=== PATIENT | female | born 1945 | race Caucasian/White ===

== ENCOUNTER 2022-07-13 13:47 | Inpatient (IN) | payer MEDICARE, MEDICAID, SELFPAY ==
[2022-07-13] VITALS (19 sets, daily range): BP systolic 97–126; BP diastolic 51–82; PULSE 65–86; RESP 13–29; TEMP 36.2–37.1; O2SAT 92–98
--- NOTE | 2022-07-13 14:15 | DI.CT_ITS ---
Exam(s) CT NECK WO EXAM: CT NECK WO CLINICAL HISTORY: right neck mass since yesterday, swelling. TECHNIQUE: Imaging Protocol: Axial computed tomography images with coronal and sagittal reformatted images were created and reviewed CONTRAST MATERIAL: IV contrast administration was attempted twice but both IVs infiltrated. This is centrally noncontrast examination. COMPARISON: No exams were available for comparison FINDINGS: There is enlargement of the right sub mandibular gland and a large amount of surrounding soft tissue swelling, consistent with sialadenitis and overlying cellulitis. There are enlarged adjacent right s ubmandibular and internal jugular chain lymph nodes. Parotid and thyroid glands unremarkable. Lungs: Images through both lung apices are unremarkable. Bones: Degenerative changes of the cervical spine. Visualized portions of the brain and orbits: Unremarkable. Sinuses and mastoids: Clear. IMPRESSION: Inflammation of the right submandibular great gland and surrounding marked cellulitis. No drainable abscess. RADIATION DOSE DELIVERED: 240.76 mGy.cm Total DLP DATA REPOSITORY: All CT scans at this facility are submitted to the National Radiology Data Registry (NRDR) Dose Index Registry (DIR) with the [employer] (ACR). RADIATION OPTIMIZATION: All CT scans at this facility use at least one of these dose optimization te chniques: automated exposure control; mA and/or kV adjustment per patient size (includes targeted exa ms where dose is matched to clinical indication); or iterative reconstruction.
[2022-07-13 14:50] LABS: Abs Immature Grans 0.05 10^3/uL (0.0-0.06); Absolute Basophil Count 0.03 10^3/uL (0.0-0.2); Absolute Eosinophil Count 0.01 10^3/uL (0.0-0.7); Absolute Lymphocyte Count 1.78 10^3/uL (1.2-3.4); Absolute Monocyte Count 0.62 10^3/uL (0.1-0.8); Absolute Neutrophil Count 10.66 10^3/uL (1.2-6.7); Basophils % 0.2; Eosinophils % 0.1; HGB 13.7 g/dL (11.2-15.7); Immature Grans % 0.4; Lymphocytes % 13.5; MCH 30.1 pg (27.0-33.0); MCHC 30.4 % (32.0-36.0); MCV 99 fL (80-95); MPV 10.6 fL (8.0-11.0); Monocytes % 4.7; Neutrophils % 81.1; Platelet Count 213 10^3/uL (130-400); RBC 4.55 10^6/uL (3.93-5.22); RDW 15.2 % (11.7-14.6); RDW-SD 55.7 fL; WBC 13.15 10^3/uL (4.4-10.8)
[2022-07-13 15:10] LABS: ALT 15 U/L (14-59); AST 17 U/L (15-37); Albumin 3.8 g/dL (3.4-5.0); Alkaline Phosphatase 93 U/L (46-116); Anion Gap 6.3 mmol/L (3-11); BUN 32 mg/dL (7-18); Bilirubin, Total 0.4 mg/dL (0.2-1.0); CO2 32.7 mmol/L (21.0-32.0); CREATININE 0.8 mg/dL (0.55-1.02); Chloride 112 mmol/L (98-107); Estimated GFR 77.27 (mL/min/1.73m2); Glucose 91 mg/dL (74-106); Potassium 4.3 mmol/L (3.5-5.1); Sodium 151 mmol/L (136-145)
--- NOTE | 2022-07-13 15:52 | ED.GENADUL_ITS ---
Discharge Plan Disposition Patient Disposition: Admit to [facility] Discharge Details Clinical Impression: Cellulitis of submandibular region, Hypernatremia Primary Care Provider: Vaughn Navarro ED Provider: Bola Choe Home Meds and New Rx's Prescriptions: No Action bupropion HCl 150 mg Tablet Sustained-Release 12 Hr 150 mg PO DAILY sennosides [Senokot] 8.6 mg Tablet See Rx Instructions .ROUTE .COMPLEX Rx Instructions: Take 2 tabs PO BID acetaminophen 325 mg Tablet 650 mg PO Q4H PRN Rx Instructions: for temp 100F or above trazodone 50 mg Tablet 50 mg PO QHS atorvastatin 10 mg Tablet 10 mg PO QHS clonazepam 0.5 mg Tablet 0.5 mg PO BID PRN clonazepam 1 mg Tablet 1 mg PO QHS Rx Instructions: administer 30 minutes before bedtime citalopram 20 mg Tablet 20 mg PO DAILY magnesium hydroxide [Milk of Magnesia] 400 mg/5 mL Suspension 30 ml PO DAILY PRN bisacodyl [Dulcolax (bisacodyl)] 10 mg Suppository 10 mg [place] DAILY PRN ferrous sulfate 325 mg (65 mg iron) Tablet 325 mg PO DAILY benztropine 1 mg Tablet 1 mg PO BID aspirin 81 mg Tablet,Chewable 81 mg PO DAILY polyethylene glycol 3350 [Miralax] 17 gram/dose Powder 17 g PO DAILY PRN divalproex [Depakote Sprinkles] 125 mg Capsule, Delayed Rel Sprinkle 125 mg PO BID cholecalciferol (vitamin D3) [Vitamin D3] 25 mcg (1,000 unit) Capsule 25 mcg PO DAILY omeprazole 20 mg Tablet,Delayed Release (Dr/Ec) 20 mg PO DAILY potassium chloride 20 mEq Tablet Extended Release 20 meq PO DAILY Medical Decision Making 1600??76-year-old female here with submandibular swelling on the right. Swelling is nodular and concern for mass versus abscess versus lymphadenopathy. Exam is not consistent with Osei angina. Airway intact. Labs reviewed and leukocytosis noted. Patient has hypernatremia and I suspect hypovolemic. Patient appears dehydrated. I will give IV fluid bolus. Plan to obtain CT of the neck. Unfortunately IV infiltrated during CT scan and patient has significant tremor severely limiting study. Plan to reestablish IV and provide Versed 2 mg IV to reduce tremor and allow for adequate imaging. -- Second IV infiltrated during CT imaging. CT was obtained without IV contrast. CT interpreted by radiology: IMPRESSION: Asymmetric enlargement of the right submandibular gland is concerning for sialadenitis and is associated with probable overlying cellulitis and regional adenopathy as detailed above.? A discrete abscess is not identified on this noncontrast examination. Correlation with clinical data is necessary. Given rapid progression of swelling today, plan to admit for IV antibiotics and observation. Have initiated treatment with vancomycin and cefepime. 2038 --Patient reassessed and airway remains intact. No further progression of swelling. I called and spoke with Dr. Henao, on-call hospitalist, discussed ED presentation and course, he will admit the patient. He request bridging orders to be placed by me to the floor. Orders were placed. Care transition at time of admission. Lab Data Lab results reviewed: Yes I reviewed the patient's lab results. Labs: Laboratory Tests Range/Units 07/13/22 07/13/22 14:30 14:30 WBC (4.4-10.8) 10^3/uL 13.15 H RBC (3.93-5.22) 10^6/uL 4.55 Hgb (11.2-15.7) g/dL 13.7 Hct (36.0-46.0) % 45.0 MCV (80-95) fL 99 H MCH (27.0-33.0) pg 30.1 MCHC (32.0-36.0) % 30.4 L RDW (11.7-14.6) % 15.2 H Plt Count (130-400) 10^3/uL 213 MPV (8.0-11.0) fL 10.6 Immature Gran % 0.4 Neutrophils % 81.1 Lymphocytes % 13.5 Monocytes % 4.7 Eosinophils % 0.1 Basophils % 0.2 Nucleated RBC % (0.0-0.3) % 0.0 Absolute Neutrophils (1.2-6.7) 10^3/uL 10.66 H Absolute Lymphocytes (1.2-3.4) 10^3/uL 1.78 Absolute Monocytes (0.1-0.8) 10^3/uL 0.62 Absolute Eosinophils (0.0-0.7) 10^3/uL 0.01 Absolute Basophils (0.0-0.2) 10^3/uL 0.03 Sodium (136-145) mmol/L 151 H Potassium (3.5-5.1) mmol/L 4.3 Chloride (98-107) mmol/L 112 H Carbon Dioxide (21.0-32.0) mmol/L 32.7 H Anion Gap (3-11) mmol/L 6.3 BUN (7-18) mg/dL 32 H Creatinine (0.55-1.02) mg/dL 0.8 Est GFR (CKD-EPI 2020) (mL/min/1.73m2) 77.27 Glucose (74-106) mg/dL 91 Calcium (8.5-10.1) mg/dL 10.0 Total Bilirubin (0.2-1.0) mg/dL 0.4 AST (15-37) U/L 17 ALT (14-59) U/L 15 Alkaline Phosphatase (46-116) U/L 93 Total Protein (6.4-8.2) g/dL 8.0 Albumin (3.4-5.0) g/dL 3.8 HPI General Mode of arrival: EMS . Date/Time Provider Initiated Documentation: 07/13/22 13:57 . Limitations to Documentation: other (poor historian) . Information obtained by: patient . HPI Narrative: 76-year-old female sent from assisted with concern for area of swelling under her chin that started yesterday and has progressed. Patient notes mild pain in the area of swelling. Patient denies difficulty breathing or swallowing. Swelling is moderate with no modifiers. History and review of systems limited secondary to poor historian. Related Data Home Medications Medication Instructions Recorded Confirmed acetaminophen 325 mg tablet 650 mg PO Q4H PRN 07/13/22 07/13/22 aspirin 81 mg chewable tablet 81 mg PO DAILY 07/13/22 07/13/22 atorvastatin 10 mg tablet 10 mg PO QHS 07/13/22 07/13/22 benztropine 1 mg tablet 1 mg PO BID 07/13/22 07/13/22 bisacodyl 10 mg rectal suppository 10 mg [place] DAILY PRN 07/13/22 07/13/22 (Dulcolax (bisacodyl)) bupropion HCl 150 mg tablet,12 hr 150 mg PO DAILY 07/13/22 07/13/22 sustained-release cholecalciferol (vitamin D3) 25 25 mcg PO DAILY 07/13/22 07/13/22 mcg (1,000 unit) capsule (Vitamin D3) citalopram 20 mg tablet 20 mg PO DAILY 07/13/22 07/13/22 clonazepam 0.5 mg tablet 0.5 mg PO BID PRN 07/13/22 07/13/22 clonazepam 1 mg tablet 1 mg PO QHS 07/13/22 07/13/22 divalproex 125 mg capsule,delayed 125 mg PO BID 07/13/22 07/13/22 release sprinkle (Depakote Sprinkles) ferrous sulfate 325 mg (65 mg 325 mg PO DAILY 07/13/22 07/13/22 iron) tablet magnesium hydroxide 400 mg/5 mL 30 ml PO DAILY PRN 07/13/22 07/13/22 oral suspension (Milk of Magnesia) omeprazole 20 mg tablet,delayed 20 mg PO DAILY 07/13/22 07/13/22 release polyethylene glycol 3350 17 17 g PO DAILY PRN 07/13/22 07/13/22 gram/dose oral powder (Miralax) potassium chloride 20 mEq 20 meq PO DAILY 07/13/22 07/13/22 tablet,extended release sennosides 8.6 mg tablet (Senokot) See Rx Instructions .Route .COMPLEX 07/13/22 07/13/22 trazodone 50 mg tablet 50 mg PO QHS 07/13/22 07/13/22 Allergies Allergy/AdvReac Type Severity Reaction Status Date / Time peas Allergy Unknown Unverified 07/13/22 14:17 ropinirole Allergy Unknown Unverified 07/13/22 14:17 General Stated Complaint: FacialProb THERESE: 3 Review of Systems Constitutional Constitutional: Denies fever(s) ENT Ears, Nose, Mouth, and Throat: Reports as per HPI PFSH All Active Problems (Updated 07/13/22 @ 20:39 by Bola Choe MD) Cellulitis of submandibular region (Acute) Hypernatremia (Acute) Social History Smoking/Tobacco Use Status: Former Tobacco Use Smoking risk assessment performed?: Yes Alcohol Intake: never Drug use: Never Substance use type: does not use Do you feel safe at home: Yes Do you feel safe in your relationship?: Yes Exam Const General: cooperative and no acute distress HENMT Face and sinus: normal facial exam and face symmetric Mouth: tongue normal, mucous membranes dry, no drooling and no trismus Teeth and gingiva: poor dentition Throat: posterior oropharynx normal Eyes Conjunctivae: normal conjunctivae Sclera: normal sclerae Neck Neck: trachea midline Lymphatic: lymphadenopathy (right) Other: Nodular swelling right submandibular area Resp Auscultation: clear to auscultation bilaterally, no rales, no rhonchi and no wheezes Cardio Rate: regular rate and not tachycardic Rhythm: regular rhythm Neuro General: patient alert, patient awake and tone normal Other: tremor Course Vital Signs Vital signs: Vital Signs Temperature 36.7 C 07/13/22 13:49 Pulse 74 07/13/22 13:49 Respiratory Rate 20 07/13/22 13:49 Blood Pressure 98/75 L 07/13/22 13:49 Pulse Oximetry 93 07/13/22 13:49 Temperature 36.7 C 07/13/22 13:49 Temperature Source Axillary 07/13/22 13:49 Pulse 74 07/13/22 13:49 Respiratory Rate 20 07/13/22 13:49 Respiratory Effort Normal 07/13/22 13:51 Blood Pressure 98/75 L 07/13/22 13:49 Blood Pressure Position Sitting 07/13/22 13:49 Pulse Oximetry 93 07/13/22 13:49 Oxygen Delivery Method Room Air 07/13/22 13:49 Oxygen Flow Rate 0 07/13/22 13:49 Pain Level 0 07/13/22 13:53 Lab/Test Results Lab/Test Results: Laboratory Tests Range/Units 07/13/22 07/13/22 14:30 14:30 WBC (4.4-10.8) 10^3/uL 13.15 H RBC (3.93-5.22) 10^6/uL 4.55 Hgb (11.2-15.7) g/dL 13.7 Hct (36.0-46.0) % 45.0 MCV (80-95) fL 99 H MCH (27.0-33.0) pg 30.1 MCHC (32.0-36.0) % 30.4 L RDW (11.7-14.6) % 15.2 H Plt Count (130-400) 10^3/uL 213 MPV (8.0-11.0) fL 10.6 Immature Gran % 0.4 Neutrophils % 81.1 Lymphocytes % 13.5 Monocytes % 4.7 Eosinophils % 0.1 Basophils % 0.2 Nucleated RBC % (0.0-0.3) % 0.0 Absolute Neutrophils (1.2-6.7) 10^3/uL 10.66 H Absolute Lymphocytes (1.2-3.4) 10^3/uL 1.78 Absolute Monocytes (0.1-0.8) 10^3/uL 0.62 Absolute Eosinophils (0.0-0.7) 10^3/uL 0.01 Absolute Basophils (0.0-0.2) 10^3/uL 0.03 Sodium (136-145) mmol/L 151 H Potassium (3.5-5.1) mmol/L 4.3 Chloride (98-107) mmol/L 112 H Carbon Dioxide (21.0-32.0) mmol/L 32.7 H Anion Gap (3-11) mmol/L 6.3 BUN (7-18) mg/dL 32 H Creatinine (0.55-1.02) mg/dL 0.8 Est GFR (CKD-EPI 2020) (mL/min/1.73m2) 77.27 Glucose (74-106) mg/dL 91 Calcium (8.5-10.1) mg/dL 10.0 Total Bilirubin (0.2-1.0) mg/dL 0.4 AST (15-37) U/L 17 ALT (14-59) U/L 15 Alkaline Phosphatase (46-116) U/L 93 Total Protein (6.4-8.2) g/dL 8.0 Albumin (3.4-5.0) g/dL 3.8
[2022-07-13] MEDS: Midazolam 2 MG/2 ML VIAL IVP (17:14)
[2022-07-13] MEDS: Normal Saline - Diluent 50 ML VIAL IJ (17:42)
[2022-07-13] MEDS: Omnipaque 350 MG/ML 100 ML BTL 80 ML IJ (17:43)
[2022-07-13] MEDS: Normal Saline Flush 10 ML SYR IVP ×2 (17:43→22:29)
--- NOTE | 2022-07-13 18:27 | DI.VRAD_ITS ---
PROCEDURE INFORMATION: Exam: CT Neck Without Contrast Exam date and time: 07/13/2022 5:21 PM Age: 76 years old Clinical indication: Mass, lump, or swelling in neck; Right and anterior; Additional info: Right neck mass since yesterday, swelling. Attempted to do scan with iv contrast but iv's infiltrated both attempt's TECHNIQUE: Imaging protocol: Computed tomography of the neck without contrast. COMPARISON: CT NECK WO 07/13/2022 3:40 PM FINDINGS: Oropharynx/oral cavity: Unremarkable. No significant tonsillar enlargement. Larynx: Epiglottis is normal. Prevertebral and retropharyngeal spaces: Unremarkable. Salivary glands: There is asymmetric enlargement of the right submandibular gland concerning for sialadenitis. Thyroid: Normal. No enlarged or calcified nodules. Lymph nodes: Prominent right submandibular and internal jugular chain lymph nodes are identified with smaller shotty left-sided submandibular and internal jugular chain nodes also evident. Trachea: Visualized trachea is unremarkable. Lungs: Unremarkable as visualized. Bones/joints: Unremarkable. No acute fracture. Soft tissues: Fluid/fatty stranding seen involving subcutaneous soft tissues overlying the right submandibular space and anterior cervical region. IMPRESSION: Asymmetric enlargement of the right submandibular gland is concerning for sialadenitis and is associated with probable overlying cellulitis and regional adenopathy as detailed above. A discrete abscess is not identified on this noncontrast examination. Correlation with clinical data is necessary. Dictated and Authenticated by: Jus Zhao MD. Ordering:ANNIE Plaza MD
[2022-07-13] MEDS: Lactated Ringers 500 ML IV (18:41)
--- NOTE | 2022-07-13 20:19 | NUR.NOTE ---
Per MD Дмитрий pt does not needs blood cultures prior to abx admin. Pt can drink fluids.
[2022-07-13] MEDS: CEFEPIME 2 GM in Normal Saline 100 ML IVPB (20:39)
[2022-07-13 21:24] LABS: Source Nasal/Nares
[2022-07-13 21:55] LABS: COVID-19 PCR Negative (Negative)
[2022-07-13] MEDS: VANCOMYCIN 1,000 MG in Normal Saline 250 ML 166.667 MG IVPB (22:27)
--- NOTE | 2022-07-13 22:36 | W.PM.HP.N ---
Date of service: 07/13/22 Time of Service: 22:36 Assessment and Plan Assessment and plan (1) Cellulitis of submandibular region: Status: Acute Assessment and plan: She is received cefepime and vancomycin from the emergency department. I am not sure she is has as severe cellulitis as it appears on the CT scan. I will continue the cefepime but let the day hospitalist decide about further vancomycin. I have requested an jaime rhino laryngology consultation. (2) Hypernatremia: Status: Acute Assessment and plan: I think the hyper natremia is probably due to some dehydration. Her mouth is quite dry. I will start IV fluids and check her labs in the morning. As noted in the history of present illness I have tried to call her daughter but was not able to reach her. I do think it would be worth having a conversation resuscitation status with the daughter as it appears the patient's dementia is quite severe. History of Present Illness History of Present Illness Chief Complaint: swelling right neck Narrative: This 76-year-old female is a resident at the [facility]. She formally lived in [facility]. When I asked her why she was here she says that she did not want to be alone. She was transferred from the [facility] earlier because of swelling of her right neck. The history is obtained from the emergency physician who cared for her in the department today. He states that the swelling of the right neck got much worse today. Apparently this problem started yesterday. The patient because of her dementia and cannot give me any history. I have a problem list from [facility] and her med list. There is relatively little other information available. I did try calling the daughter Isa Contreras at her number in [place] at [phone] and left a message for her to call here to the hospital's office tomorrow. The patient was evaluated in the emergency department it was felt that she had a cellulitis of her right side of her face. A CT exam does not show any abscess formation of the neck but there is concern about asymmetrical enlargement of the right submandibular gland and cellulitis. The patient has not been febrile. Laboratory studies show an elevated white blood cell count and an elevated sodium level. Chronic medical problems that are listed on her summary report from [facility] include: Dementia-severe, major depression-recurrent, bipolar disorder, chronic obstructive lung disease, gastroesophageal reflux, hypertension, repeated falls, hyperlipidemia, history of anemia, insomnia, intervertebral disc degeneration of lumbar region, allergic rhinitis, obstructive sleep apnea, dental caries, extra pyramidal movement disorder. Her current medicines are acetaminophen, aspirin, atorvastatin, benztropine, bupropion, citalopram, clonazepam, Depakote, Duca locks, iron sulfate, potassium supplement, milk of magnesia, MiraLAX, omeprazole, Senokot, trazodone and vitamin D. The medical record states she is a full code. Review of Systems Narrative: She says she feels fine. Review of systems is really not obtainable due to her mental condition which appears to be severe dementia. PFSH All Active Problems (Updated 07/13/22 @ 20:39 by Bola Choe MD) Cellulitis of submandibular region (Acute) Hypernatremia (Acute) Social History Smoking/Tobacco Use Status: Former Tobacco Use Smoking risk assessment performed?: Yes Alcohol Intake: never Drug use: Never Substance use type: does not use Do you feel safe at home: Yes Do you feel safe in your relationship?: Yes Meds Allergies and Home Medications Allergies Allergy/AdvReac Type Severity Reaction Status Date / Time peas Allergy Unknown Unverified 07/13/22 14:17 ropinirole Allergy Unknown Unverified 07/13/22 14:17 Home Medications Medication Instructions Recorded Confirmed Type acetaminophen 325 mg tablet 650 mg PO Q4H PRN 07/13/22 07/13/22 History aspirin 81 mg chewable tablet 81 mg PO DAILY 07/13/22 07/13/22 History atorvastatin 10 mg tablet 10 mg PO QHS 07/13/22 07/13/22 History benztropine 1 mg tablet 1 mg PO BID 07/13/22 07/13/22 History bisacodyl 10 mg rectal suppository 10 mg [place] DAILY PRN 07/13/22 07/13/22 History (Dulcolax (bisacodyl)) bupropion HCl 150 mg tablet,12 hr 150 mg PO DAILY 07/13/22 07/13/22 History sustained-release cholecalciferol (vitamin D3) 25 25 mcg PO DAILY 07/13/22 07/13/22 History mcg (1,000 unit) capsule (Vitamin D3) citalopram 20 mg tablet 20 mg PO DAILY 07/13/22 07/13/22 History clonazepam 0.5 mg tablet 0.5 mg PO BID PRN 07/13/22 07/13/22 History clonazepam 1 mg tablet 1 mg PO QHS 07/13/22 07/13/22 History divalproex 125 mg capsule,delayed 125 mg PO BID 07/13/22 07/13/22 History release sprinkle (Depakote Sprinkles) ferrous sulfate 325 mg (65 mg 325 mg PO DAILY 07/13/22 07/13/22 History iron) tablet magnesium hydroxide 400 mg/5 mL 30 ml PO DAILY PRN 07/13/22 07/13/22 History oral suspension (Milk of Magnesia) omeprazole 20 mg tablet,delayed 20 mg PO DAILY 07/13/22 07/13/22 History release polyethylene glycol 3350 17 17 g PO DAILY PRN 07/13/22 07/13/22 History gram/dose oral powder (Miralax) potassium chloride 20 mEq 20 meq PO DAILY 07/13/22 07/13/22 History tablet,extended release sennosides 8.6 mg tablet (Senokot) See Rx Instructions .Route .COMPLEX 07/13/22 07/13/22 History trazodone 50 mg tablet 50 mg PO QHS 07/13/22 07/13/22 History Exam Const General: no acute distress, disheveled, frail appearing and No well hydrated Orientation: not alert, awake, not oriented x3 and confused Other: She thought it was 2002. HENOH Other: Mouth is quite dry. She has only a few teeth still remaining in place. I do not see any intraoral lesion or masses. There is no erythema or abscesses in the mouth. Neck Neck: no JVD Other: She has a ovoid mass about 4 x 3 cm in the right submandibular area. It perhaps is a bit tender. It is difficult to tell how tender it really is. There is no appreciable cellulitis of the cheek although there does appear to be cellulitis on the CT scan that I can see. The submandibular mass is freely mobile. There is no overlying erythema. Resp Auscultation: clear to auscultation bilaterally, no rales, no rhonchi and no wheezes Cardio Rate: regular rate Rhythm: regular rhythm Heart Sounds: S1 normal, S2 normal, no gallops and no murmurs GI Palpation: soft, no hepatosplenomegaly, not firm and nontender Neuro Other: She does have a moderate amount of continuous movements of her arms and legs. 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 Her speech is difficult to understand. She has constant movements of her jaw also. Extrem General: normal to inspection, no calf tenderness bilaterally, no cyanosis and no edema Results Labs 07/13/22 14:30 07/13/22 14:30 Labs: Laboratory Results - last 24 hr 07/13/22 07/13/22 07/13/22 14:30 14:30 21:02 WBC 13.15 H RBC 4.55 Hgb 13.7 Hct 45.0 MCV 99 H MCH 30.1 MCHC 30.4 L RDW 15.2 H Plt Count 213 MPV 10.6 Immature Gran % 0.4 Neutrophils % 81.1 Lymphocytes % 13.5 Monocytes % 4.7 Eosinophils % 0.1 Basophils % 0.2 Nucleated RBC % 0.0 Absolute Neutrophils 10.66 H Absolute Lymphocytes 1.78 Absolute Monocytes 0.62 Absolute Eosinophils 0.01 Absolute Basophils 0.03 Sodium 151 H Potassium 4.3 Chloride 112 H Carbon Dioxide 32.7 H Anion Gap 6.3 BUN 32 H Creatinine 0.8 Est GFR (CKD-EPI 2020) 77.27 Glucose 91 Calcium 10.0 Total Bilirubin 0.4 AST 17 ALT 15 Alkaline Phosphatase 93 Total Protein 8.0 Albumin 3.8 COVID-19 Source Nasal/Nares SARS-CoV-2 (PCR) Negative Last Vital Signs Temp 36.5 C 07/13/22 21:35 Pulse 65 07/13/22 21:35 Resp 17 07/13/22 21:35 BP 104/62 07/13/22 21:35 Pulse Ox 96 07/13/22 21:35 Time Spent Time spent with Patient: 40-54 minutes Time was spent: preparing to see the patient(eg.review tests), ordering medications,tests, procedures, referring, communicating with other health post acute care nurse practitioner and indepentently interpreting results
[2022-07-13] MEDS: clonazePAM 1 MG TAB PO (23:26)
[2022-07-13] MEDS: Atorvastatin 10 MG TAB PO (23:26)
[2022-07-13] MEDS: traZODone 50 MG TAB PO (23:26)
[2022-07-14] VITALS (9 sets, daily range): BP systolic 100–129; BP diastolic 49–89; PULSE 55–155; RESP 12–25; TEMP 36.2–36.6; O2SAT 93–94
--- NOTE | 2022-07-14 | DI.CT_ITS ---
Exam(s) CT NECK W EXAM: CT NECK W CLINICAL HISTORY: Mass v abscess. TECHNIQUE: Imaging Protocol: Axial computed tomography images with coronal and sagittal reformatted images were created and reviewed CONTRAST MATERIAL: Intravenous: Omnipaque 350 Contrast volume:100 ml contrast COMPARISON: CT CT NECK WO from 07/13/2022 FINDINGS: Mild emphysematous changes noted at the lung apices. Atherosclerotic changes at aortic arch. Calcif ic plaque at the common carotid bulbs. No significant internal carotid artery stenosis. Vertebral a rteries normal in diameter. Sinuses and mastoid air cells are clear. Degenerative changes are noted in the spine. Orbits are un remarkable. Visualized portions of the brain are unremarkable. Parotid and thyroid glands appear normal. Again noted is enlargement of the left parotid gland with enhancement. Enlarged adjacent lymph nodes . Adjacent soft tissue edema consistent with cellulitis. IMPRESSION: No significant change in appearance of the right parotid gland and surrounding inflammation. The fin dings likely represent inflammation however mass is not excluded and follow-up after course of treatm ent is recommended. RADIATION DOSE DELIVERED: 256.04mGy.cm Total DLP DATA REPOSITORY: All CT scans at this facility are submitted to the National Radiology Data Registry (NRDR) Dose Index Registry (DIR) with the [employer] ([employer]). RADIATION OPTIMIZATION: All CT scans at this facility use at least one of these dose optimization te chniques: automated exposure control; mA and/or kV adjustment per patient size (includes targeted exa ms where dose is matched to clinical indication); or iterative reconstruction.
[2022-07-14] MEDS: CEFEPIME 1 GM in Normal Saline 50 ML IVPB ×3 (04:42→19:48)
[2022-07-14 07:19] LABS: Bilirubin Negative (Negative); Blood Negative (Negative); Clarity Clear (Clear); Glucose Negative (Negative); Ketones Negative (Negative); Leukocyte Esterase Negative (Negative); Nitrite Negative (Negative); Specific Gravity 1.015 (1.005-1.025); Urobilinogen 0.2 mg/dL (Up to 0.2); pH 6.5 (5-8)
[2022-07-14 07:26] LABS: Bacteria Rare HPF (Negative); C & S Indicated? No; Casts 0-2 Hyaline LPF (Negative); Crystals Negative HPF (Negative); Epithelial Cells Moderate HPF (Negative); Mucus Trace (Negative); RBC Negative HPF (0-2); WBC Negative HPF (0-5)
[2022-07-14] MEDS: Omeprazole 20 MG CAPCR PO (08:31)
[2022-07-14] MEDS: Senna TAB 2 TAB PO ×2 (08:31→19:47)
[2022-07-14] MEDS: Divalproex 125 MG SPRINKLE PO ×2 (08:31→19:48)
[2022-07-14] MEDS: Citalopram 20 MG TAB PO (08:31)
[2022-07-14] MEDS: Aspirin 81 MG CHEW PO (08:31)
[2022-07-14] MEDS: Lactated Ringers 1,000 ML 125 ML IV (08:32)
[2022-07-14] MEDS: Benztropine 1 MG TAB PO ×2 (08:32→19:48)
[2022-07-14] MEDS: buPROPion-CR 150 MG TABCR PO (08:32)
--- NOTE | 2022-07-14 08:45 | PDOC.CMIN ---
- If Service Date Differs Date of service: 07/14/22 Time of Service: 08:45 Care Management Initial Assess REASON FOR HOSPITALIZATION:: submandibular cellulitis PAST MEDICAL HISTORY/PAST SURGICAL HISTORY:: Cellulitis of submandibular region (Acute). Hypernatremia (Acute) PREVIOUS FUNCTIONAL STATUS/SOCIAL/FAMILY SUPPORTS:: Aletha lives at [facility]. She was transferred there from [facility] where she had been since December,. She has one child, a daughter named Isa, who lives in [place] and is her guardian. Aletha has severe dementia and requires care with ADLs and all activities. CURRENT FUNCTIONAL STATUS:: Aletha has severe dementia and is unable to provide any information. CM was able to speak to her daughter Isa who is her guardian. Isa informed that a year ago Aletha was in good health and completely independent. Both she and Isa got Covid infections in June of 2021 and Aletha was quite ill. She developed pneumonia and required bilateral chest tubes. Isa stated that after surgery, Aletha was confused and unable to speak. She had a dementia-like picture and steadily declined until she could no longer be managed at home and was placed at [facility]. Isa shared that Aletha has lost over 100 pounds in the past year and she has no idea why. Isa also shared that she was told that Aletha had a heart attack at home this spring or summer. CM asked about code status as Aletha is a full code. Isa felt that was consistent with her mother's wishes but would be agreeable to a Palliative consult to discuss it further. ADVANCE DIRECTIVES:: none on file Has patient been provided with info about the portal/API?: Yes Did the patient sign up for the portal?: No INSURANCE COVERAGE / FINANCIAL ISSUES:: Medicare. Medicaid CURRENT HOME/COMMUNITY SERVICES/EQUIPMENT:: lives at [facility] PRIMARY CARE PHYSICIAN:: Vaughn Navarro POTENTIAL DISCHARGE NEEDS:: return to [facility] PATIENT/FAMILY EDUCATION NEEDS:: Review of discharge instructions, follow up plan, activity and Ask Me Three TRANSPORTATION:: via EMS vs facility W/C van PLAN:: Anticipate aletha will return to [facility] when medically cleared by provider. She will follow up with facility provider and plan of care and transport via EMS vs w/c van. CM to follow and support discharge needs.
--- NOTE | 2022-07-14 10:57 | W.PM.PROGNOT ---
Date of Service Date of service: 07/14/22 Time of Service: 10:57 Assessment and Plan Assessment and plan (1) Cellulitis of submandibular region: Status: Acute Assessment and plan: ENT consulted - discussion with provider recommends changing abx to Clindamycin orally and cipro orally - this has been changed. (2) Hypernatremia: Status: Acute Assessment and plan: Her sodium has come down, she is still dry, but with her tardive dyskinesia, her mouth is mostly always open and dry, nursing will offer moistening (3) Dementia: Assessment and plan: Quite severe; safety precautions. (4) DVT prophylaxis: Status: Deleted Assessment and plan: Enoxaparin 40 mg sq daily (5) Discharge planning issues: Status: Deleted Assessment and plan: Awaiting some history from [facility] - Return to [facility] on oral abx Discussed with Dr Walters Subjective Subjective Patient reports: no new complaints, tolerating a regular diet and afebrile; denies diarrhea, vomiting or shortness of breath Interval history since last seen: Sitting in the chair, poor eye contact, not conversant Exam Const General: no acute distress, disheveled, frail appearing and No well hydrated Orientation: not alert, awake, not oriented x3 and confused Other: She thought it was 2002. [facility] Head: normal to inspection, no palpable skull fracture, normocephalic and atraumatic Face and sinus: normal facial exam and face symmetric Mouth: tongue normal, mucous membranes dry, moist mucous membranes abnormal, no drooling and no trismus Teeth and gingiva: poor dentition Throat: posterior oropharynx normal Other: Mouth is quite dry. She has only a few teeth still remaining in place. There is no erythema or abscesses visible in the mouth. Eyes Conjunctivae: normal conjunctivae Sclera: normal sclerae Neck Neck: no JVD Lymphatic: lymphadenopathy (right) Other: She has a ovoid mass about 4 x 3 cm in the right submandibular area. It perhaps is a bit tender. It is difficult to tell how tender it really is. There is no appreciable cellulitis of the cheek although there does appear to be cellulitis on the CT scan that I can see. The submandibular mass is freely mobile. There is no overlying erythema. Resp Auscultation: clear to auscultation bilaterally, no rales, no rhonchi and no wheezes Cardio Rate: regular rate Rhythm: regular rhythm Heart Sounds: S1 normal, S2 normal, no gallops and no murmurs GI Palpation: soft, no hepatosplenomegaly, not firm and nontender Neuro General: patient alert, patient awake and tone normal Other: She does have a moderate amount of continuous movements of her arms and legs. 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 Her speech is difficult to understand. She has constant movements of her jaw also. Extrem General: normal to inspection, no calf tenderness bilaterally, no cyanosis and no edema Objective Last Vital Signs Temp 36.3 C L 07/14/22 08:00 Pulse 155 H 07/14/22 08:01 Resp 25 H 07/14/22 08:01 BP 100/79 07/14/22 08:01 Pulse Ox 96 07/13/22 22:35 Laboratory Results - last 24 hr 07/13/22 07/13/22 07/13/22 14:30 14:30 21:02 WBC 13.15 H RBC 4.55 Hgb 13.7 Hct 45.0 MCV 99 H MCH 30.1 MCHC 30.4 L RDW 15.2 H Plt Count 213 MPV 10.6 Immature Gran % 0.4 Neutrophils % 81.1 Lymphocytes % 13.5 Monocytes % 4.7 Eosinophils % 0.1 Basophils % 0.2 Nucleated RBC % 0.0 Absolute Neutrophils 10.66 H Absolute Lymphocytes 1.78 Absolute Monocytes 0.62 Absolute Eosinophils 0.01 Absolute Basophils 0.03 Sodium 151 H Potassium 4.3 Chloride 112 H Carbon Dioxide 32.7 H Anion Gap 6.3 BUN 32 H Creatinine 0.8 Est GFR (CKD-EPI 2020) 77.27 Glucose 91 Calcium 10.0 Total Bilirubin 0.4 AST 17 ALT 15 Alkaline Phosphatase 93 Total Protein 8.0 Albumin 3.8 Urine Color Urine Clarity Urine pH Ur Specific [place] Urine Protein Urine Ketones Urine Blood Urine Nitrite Urine Bilirubin Urine Urobilinogen Ur Leukocyte Esterase Urine RBC Urine WBC Ur Epithelial Cells Urine Crystals Urine Bacteria Urine Casts Urine Mucus Ur Culture Indicated? Urine Glucose COVID-19 Source Nasal/Nares SARS-CoV-2 (PCR) Negative 07/14/22 06:43 WBC RBC Hgb Hct MCV MCH MCHC RDW Plt Count MPV Immature Gran % Neutrophils % Lymphocytes % Monocytes % Eosinophils % Basophils % Nucleated RBC % Absolute Neutrophils Absolute Lymphocytes Absolute Monocytes Absolute Eosinophils Absolute Basophils Sodium Potassium Chloride Carbon Dioxide Anion Gap BUN Creatinine Est GFR (CKD-EPI 2020) Glucose Calcium Total Bilirubin AST ALT Alkaline Phosphatase Total Protein Albumin Urine Color Yellow Urine Clarity Clear Urine pH 6.5 Ur Specific [place] 1.015 Urine Protein 30 H Urine Ketones Negative Urine Blood Negative Urine Nitrite Negative Urine Bilirubin Negative Urine Urobilinogen 0.2 Ur Leukocyte Esterase Negative Urine RBC Negative Urine WBC Negative Ur Epithelial Cells Moderate Urine Crystals Negative Urine Bacteria Rare Urine Casts 0-2 Hyaline Urine Mucus Trace Ur Culture Indicated? No Urine Glucose Negative COVID-19 Source SARS-CoV-2 (PCR) Time Spent with Patient Time Spent with Patient: 25-34 minutes Time was spent: preparing to see the patient(eg.review tests), obtaining and/or reviewing separately otained hiistory, ordering medications,tests, procedures, referring, communicating with other health home care specialist, indepentently interpreting results, counseling the patient and care coordination
[2022-07-14 11:50] LABS: Abs Immature Grans 0.05 10^3/uL (0.0-0.06); Absolute Eosinophil Count 0.01 10^3/uL (0.0-0.7); Basophils % 0.7; Eosinophils % 0.1; HCT 39.8 % (36.0-46.0); HGB 12.2 g/dL (11.2-15.7); Immature Grans % 0.4; Lymphocytes % 20.3; MCHC 30.7 % (32.0-36.0); MCV 98 fL (80-95); MPV 10.4 fL (8.0-11.0); Monocytes % 4.8; Neutrophils % 73.7; Platelet Count 192 10^3/uL (130-400); RBC 4.06 10^6/uL (3.93-5.22); RDW 15.3 % (11.7-14.6); RDW-SD 55.8 fL; WBC 13.86 10^3/uL (4.4-10.8)
[2022-07-14 11:51] LABS: Absolute Lymphocyte Count 2.81 10^3/uL (1.2-3.4); Absolute Monocyte Count 0.67 10^3/uL (0.1-0.8); Absolute Neutrophil Count 10.21 10^3/uL (1.2-6.7)
[2022-07-14 11:59] LABS: Anion Gap 3.9 mmol/L (3-11); BUN 32 mg/dL (7-18); CO2 32.1 mmol/L (21.0-32.0); CREATININE 0.7 mg/dL (0.55-1.02); Calcium 9.3 mg/dL (8.5-10.1); Chloride 115 mmol/L (98-107); Glucose 80 mg/dL (74-106); Potassium 3.9 mmol/L (3.5-5.1); Sodium 151 mmol/L (136-145)
[2022-07-14] MEDS: Normal Saline - Diluent 50 ML VIAL IJ (13:24)
[2022-07-14] MEDS: Omnipaque 350 MG/ML 500 ML BTL-Imaging package IJ (13:24)
[2022-07-14] MEDS: Normal Saline Flush 10 ML SYR IVP ×2 (13:26→13:59)
[2022-07-14] MEDS: Midazolam 2 MG/2 ML VIAL IVP (13:27)
[2022-07-14] MEDS: traZODone 50 MG TAB PO (21:50)
[2022-07-14] MEDS: Atorvastatin 10 MG TAB PO (21:50)
[2022-07-14] MEDS: clonazePAM 1 MG TAB PO (21:50)
[2022-07-15 03:10] VITALS: BP 109/63; PULSE 53; RESP 19; TEMP 35.6; O2SAT 98
[2022-07-15] MEDS: Normal Saline Flush 10 ML SYR IVP ×3 (04:26→21:50)
[2022-07-15] MEDS: CEFEPIME 1 GM in Normal Saline 50 ML IVPB (04:27)
[2022-07-15 06:16] VITALS: BP 124/74; PULSE 74; RESP 20; TEMP 36.5; O2SAT 95
[2022-07-15 07:46] LABS: Abs Immature Grans 0.01 10^3/uL (0.0-0.06); Absolute Basophil Count 0.03 10^3/uL (0.0-0.2); Absolute Eosinophil Count 0.13 10^3/uL (0.0-0.7); Absolute Lymphocyte Count 2.41 10^3/uL (1.2-3.4); Absolute Monocyte Count 0.43 10^3/uL (0.1-0.8); Absolute Neutrophil Count 4.05 10^3/uL (1.2-6.7); Basophils % 0.4; Eosinophils % 1.8; HCT 36.3 % (36.0-46.0); HGB 11.1 g/dL (11.2-15.7); Immature Grans % 0.1; Lymphocytes % 34.1; MCH 30.1 pg (27.0-33.0); MCHC 30.6 % (32.0-36.0); MCV 98 fL (80-95); MPV 10.3 fL (8.0-11.0); Monocytes % 6.1; Neutrophils % 57.5; Platelet Count 177 10^3/uL (130-400); RBC 3.69 10^6/uL (3.93-5.22); RDW 15.2 % (11.7-14.6); RDW-SD 55.6 fL; WBC 7.06 10^3/uL (4.4-10.8)
[2022-07-15 07:58] LABS: Anion Gap -0.5 mmol/L (3-11); BUN 28 mg/dL (7-18); CO2 31.5 mmol/L (21.0-32.0); CREATININE 0.6 mg/dL (0.55-1.02); Calcium 8.9 mg/dL (8.5-10.1); Chloride 115 mmol/L (98-107); Estimated GFR 94.13 (mL/min/1.73m2); Glucose 79 mg/dL (74-106); Magnesium 1.9 mg/dL (1.8-2.4); Potassium 3.2 mmol/L (3.5-5.1); Sodium 146 mmol/L (136-145)
[2022-07-15] MEDS: POTASSIUM CHLORIDE 20 MEQ/100 ML BAG 50 MEQ IVPB ×2 (11:18→13:27)
[2022-07-15] MEDS: Divalproex 125 MG SPRINKLE PO ×2 (11:22→20:04)
[2022-07-15] MEDS: Aspirin 81 MG CHEW PO (11:22)
[2022-07-15] MEDS: Citalopram 20 MG TAB PO (11:23)
[2022-07-15] MEDS: Ciprofloxacin 500 MG TAB 750 MG PO (11:23)
[2022-07-15] MEDS: buPROPion-CR 150 MG TABCR PO (11:23)
[2022-07-15] MEDS: Senna TAB 2 TAB PO ×2 (11:23→19:56)
[2022-07-15] MEDS: Benztropine 1 MG TAB PO ×2 (11:23→20:04)
[2022-07-15] MEDS: Omeprazole 20 MG CAPCR PO (11:23)
[2022-07-15 11:42] VITALS: BP 123/69; PULSE 69; RESP 18; TEMP 36.7; O2SAT 94
[2022-07-15] MEDS: Clindamycin 150 MG CAP 450 MG PO ×2 (13:27→19:57)
[2022-07-15 15:18] VITALS: BP 105/62; PULSE 67; RESP 17; TEMP 36.4; O2SAT 95
--- NOTE | 2022-07-15 18:02 | PGE_ITS ---
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 Assessment and plan: amantadine 100 mg BID; clonazepam; benztropine (3) Hypernatremia: Status: Acute Assessment and plan: Her sodium has come down, she is still dry, but with her tardive dyskinesia, her mouth is mostly always open and dry, nursing will offer moistening Will monitor (4) DVT prophylaxis: Status: Acute Assessment and plan: Enoxaparin 40 mg sq daily (5) Discharge planning issues: Status: Acute Assessment and plan: Awaiting some history from [facility] - Return to [facility] on oral abx Discussed with Dr Xavier Subjective Subjective Patient reports: no new complaints and afebrile; denies diarrhea, vomiting or shortness of breath Interval history since last seen: Unchanged, no fevers, appears comfortable, not complaining of pain, difficulty to assess with her dementia, but not grimacing, again difficult to tell with tardive dyskenesia. Exam Const General: no acute distress, disheveled, frail appearing and No well hydrated Orientation: not alert, awake, not oriented x3 and confused Other: She thought it was 2002. [facility] Head: normal to inspection, no palpable skull fracture, normocephalic and atraumatic Face and sinus: normal facial exam and face symmetric Mouth: tongue normal, mucous membranes dry, moist mucous membranes abnormal, no drooling and no trismus Teeth and gingiva: poor dentition Throat: posterior oropharynx normal Other: Mouth is quite dry. She has only a few teeth still remaining in place. There is no erythema or abscesses visible in the mouth. Eyes Conjunctivae: normal conjunctivae Sclera: normal sclerae Neck Neck: no JVD Lymphatic: lymphadenopathy (right) Other: She has a ovoid mass about 4 x 3 cm in the right submandibular area. It perhaps is a bit tender. It is difficult to tell how tender it really is. There is no appreciable cellulitis of the cheek although there does appear to be cellulitis on the CT scan that I can see. The submandibular mass is freely mobile. There is no overlying erythema. Resp Auscultation: clear to auscultation bilaterally, no rales, no rhonchi and no wheezes Cardio Rate: regular rate Rhythm: regular rhythm Heart Sounds: S1 normal, S2 normal, no gallops and no murmurs GI Palpation: soft, no hepatosplenomegaly, not firm and nontender Neuro General: patient alert, patient awake and tone normal Other: She does have a moderate amount of continuous movements of her arms and legs. 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 Her speech is difficult to understand. She has constant movements of her jaw also. Extrem General: normal to inspection, no calf tenderness bilaterally, no cyanosis and no edema Objective Last Vital Signs Temp 36.4 C L 07/15/22 15:18 Pulse 67 07/15/22 15:18 Resp 17 07/15/22 15:18 BP 105/62 07/15/22 15:18 Pulse Ox 95 07/15/22 15:18 Laboratory Results - last 24 hr 07/15/22 07/15/22 07:30 07:30 WBC 7.06 RBC 3.69 L Hgb 11.1 L Hct 36.3 MCV 98 H MCH 30.1 MCHC 30.6 L RDW 15.2 H Plt Count 177 MPV 10.3 Immature Gran % 0.1 Neutrophils % 57.5 Lymphocytes % 34.1 Monocytes % 6.1 Eosinophils % 1.8 Basophils % 0.4 Nucleated RBC % 0.0 Absolute Neutrophils 4.05 Absolute Lymphocytes 2.41 Absolute Monocytes 0.43 Absolute Eosinophils 0.13 Absolute Basophils 0.03 Sodium 146 H Potassium 3.2 L Chloride 115 H Carbon Dioxide 31.5 Anion Gap -0.5 L BUN 28 H Creatinine 0.6 Est GFR (CKD-EPI 2020) 94.13 Glucose 79 Calcium 8.9 Magnesium 1.9 C-Reactive Protein 2.00 H Time Spent with Patient Time Spent with Patient: 35-49 minutes Time was spent: preparing to see the patient(eg.review tests), obtaining and/or reviewing separately otained hiistory, ordering medications,tests, procedures, referring, communicating with other health child care education coordinator, indepentently interpreting results, counseling the patient and care coordination
[2022-07-15] MEDS: Enoxaparin 40 MG/0.4 ML SYR SC (18:05)
[2022-07-15 19:32] VITALS: BP 110/54; PULSE 66; RESP 17; TEMP 36.9; O2SAT 97
[2022-07-15] MEDS: Ciprofloxacin 250 MG TAB 750 MG PO (20:05)
[2022-07-15] MEDS: traZODone 50 MG TAB PO (21:49)
[2022-07-15] MEDS: clonazePAM 1 MG TAB PO (21:49)
[2022-07-15] MEDS: Atorvastatin 10 MG TAB PO (21:49)
[2022-07-15] MEDS: Acetaminophen 325 MG TAB 650 MG PO (22:08)
[2022-07-15 23:20] VITALS: BP 95/59; PULSE 67; RESP 19; TEMP 36.6; O2SAT 93
[2022-07-16 07:06] LABS: Abs Immature Grans 0.03 10^3/uL (0.0-0.06); Absolute Basophil Count 0.04 10^3/uL (0.0-0.2); Absolute Eosinophil Count 0.11 10^3/uL (0.0-0.7); Absolute Lymphocyte Count 2.34 10^3/uL (1.2-3.4); Absolute Monocyte Count 0.54 10^3/uL (0.1-0.8); Absolute Neutrophil Count 7.06 10^3/uL (1.2-6.7); Basophils % 0.4; Eosinophils % 1.1; HGB 10.7 g/dL (11.2-15.7); Immature Grans % 0.3; Lymphocytes % 23.1; MCH 30.9 pg (27.0-33.0); MCHC 31.5 % (32.0-36.0); MCV 98 fL (80-95); MPV 10.9 fL (8.0-11.0); Monocytes % 5.3; Neutrophils % 69.8; Platelet Count 154 10^3/uL (130-400); RBC 3.46 10^6/uL (3.93-5.22); RDW-SD 54.4 fL; WBC 10.12 10^3/uL (4.4-10.8)
[2022-07-16 07:09] VITALS: BP 102/63; PULSE 92; RESP 19; TEMP 35.2; O2SAT 91
[2022-07-16 07:20] LABS: Lab Add On Test DONE
[2022-07-16 07:21] LABS: Anion Gap 6.3 mmol/L (3-11); BUN 25 mg/dL (7-18); CO2 27.7 mmol/L (21.0-32.0); CREATININE 0.6 mg/dL (0.55-1.02); Calcium 8.7 mg/dL (8.5-10.1); Chloride 114 mmol/L (98-107); Estimated GFR 94.13 (mL/min/1.73m2); Glucose 64 mg/dL (74-106); Magnesium 1.8 mg/dL (1.8-2.4); Potassium 3.9 mmol/L (3.5-5.1); Sodium 148 mmol/L (136-145)
[2022-07-16 07:34] LABS: C-Reactive Protein 1.34 mg/dL (0.0-0.3)
[2022-07-16] MEDS: Citalopram 20 MG TAB PO (07:41)
[2022-07-16] MEDS: Ciprofloxacin 250 MG TAB 750 MG PO (07:41)
[2022-07-16] MEDS: Senna TAB 2 TAB PO ×2 (07:42→21:05)
[2022-07-16] MEDS: Clindamycin 150 MG CAP 450 MG PO ×2 (07:42→15:17)
[2022-07-16] MEDS: Divalproex 125 MG SPRINKLE PO ×2 (07:42→21:05)
[2022-07-16] MEDS: Aspirin 81 MG CHEW PO (07:42)
[2022-07-16] MEDS: buPROPion-CR 150 MG TABCR PO (07:43)
[2022-07-16] MEDS: Omeprazole 20 MG CAPCR PO (07:43)
[2022-07-16] MEDS: Enoxaparin 40 MG/0.4 ML SYR SC (07:43)
[2022-07-16] MEDS: Benztropine 1 MG TAB PO ×2 (07:43→21:05)
[2022-07-16 07:54] LABS: Procalcitonin < 0.1 ng/mL
[2022-07-16] MEDS: DEXTROSE 5%-0.45% SALINE 1,000 ML 75 ML IV (09:00)
[2022-07-16 13:44] LABS: Anion Gap 9.7 mmol/L (3-11); BUN 25 mg/dL (7-18); CO2 25.3 mmol/L (21.0-32.0); CREATININE 0.8 mg/dL (0.55-1.02); Calcium 8.9 mg/dL (8.5-10.1); Chloride 114 mmol/L (98-107); Estimated GFR 77.27 (mL/min/1.73m2); Glucose 109 mg/dL (74-106); Potassium 4.1 mmol/L (3.5-5.1); Sodium 149 mmol/L (136-145)
[2022-07-16] MEDS: DEXTROSE 5%-WATER 1,000 ML 75 ML IV (14:03)
[2022-07-16 15:14] LABS: Source Nasal/Nares
[2022-07-16 15:25] VITALS: BP 104/64; PULSE 75; RESP 19; TEMP 36.3; O2SAT 96
[2022-07-16 15:56] LABS: COVID-19 PCR Negative (Negative)
[2022-07-16] MEDS: PIPERACILLIN/TAZO 4.5 GM in Normal Saline 100 ML IVPB ×2 (17:52→23:31)
[2022-07-16] MEDS: Hydrocortisone SOD SUC. 100 MG VIAL IVP (18:15)
[2022-07-16] MEDS: Dextrose 50%-Water 25 GM/50 ML SYR IVP (19:00)
--- NOTE | 2022-07-16 19:00 | PGE_ITS ---
Date of Service Date of service: 07/16/22 Time of Service: 13:00 Assessment and Plan Assessment and plan (1) Cellulitis of submandibular region: Status: Acute Assessment and plan: She started having low glucose today; perhaps getting septic, changed oral meds back to IV meds (2) Hypoglycemia: Status: Acute Assessment and plan: Glucose dipped, possible beginning of sepsis, or secondary to Amantadine - stopped Amantadine Frequent glucose checks IVF changed to D5W 12.5 gm glucose IV was given one time for gluocse < 60 - she was asymptomatic with these low glucose readings; will montor. Hydrocortisone IV also given (3) Extrapyramidal and movement disorder: Status: Chronic Assessment and plan: amantadine discontinued as it can cause hypoglycemia and she had no improvement - continue clonazepam; benztropine Check glucose frequently - she did require 12.5 gm of glucose and IVF changed to D5W (4) Hypernatremia: Status: Acute Assessment and plan: Her sodium increased to 149 - D5-1/2NS was stopped and D5W IV fluid was started; her mouth is mostly always open and dry, nursing will offer moistening Will monitor electrolytes (5) DVT prophylaxis: Status: Acute Assessment and plan: Enoxaparin 40 mg sq daily (6) Discharge planning issues: Status: Acute Assessment and plan: Return to [facility] & on oral abx when stable and electrolytes normalize Discussed with Dr Xavier Subjective Subjective Patient reports: no new complaints, feels better, tolerating a regular diet, bowel movement and afebrile; denies diarrhea, blood in stool, vomiting or shortness of breath Interval history since last seen: Aleida reports feelings well, needs assistance with meals, she has a hard time getting foot into her mouth. Exam Const General: no acute distress, disheveled, frail appearing and No well hydrated Orientation: not alert, awake, not oriented x3 and confused Other: She thought it was 2002. [facility] Head: normal to inspection, no palpable skull fracture, normocephalic and atraumatic Face and sinus: normal facial exam and face symmetric Mouth: tongue normal, mucous membranes dry, moist mucous membranes abnormal, no drooling and no trismus Teeth and gingiva: poor dentition Throat: posterior oropharynx normal Other: Mouth is quite dry. She has only a few teeth still remaining in place. There is no erythema or abscesses visible in the mouth, continues to be dry Eyes Conjunctivae: normal conjunctivae Sclera: normal sclerae Neck Neck: no JVD Lymphatic: lymphadenopathy (right) Other: She has a ovoid mass about 4 x 3 cm in the right submandibular area. There is no notable or obvious cellulitis, no erythema, of the cheek although there does appear to be cellulitis on the CT scan. The submandibular mass is freely mobile. Resp Auscultation: clear to auscultation bilaterally, no rales, no rhonchi and no wheezes Cardio Rate: regular rate Rhythm: regular rhythm Heart Sounds: S1 normal, S2 normal, no gallops and no murmurs GI Palpation: soft, no hepatosplenomegaly, not firm and nontender Neuro General: patient alert, patient awake and tone normal Other: She does have a moderate amount of continuous movements of her arms and legs. 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 Her speech is difficult to understand. She has constant movements of her jaw also. Extrem General: normal to inspection, no calf tenderness bilaterally, no cyanosis and no edema Objective Last Vital Signs Temp 36.3 C L 07/16/22 15:25 Pulse 75 07/16/22 15:25 Resp 19 07/16/22 15:25 BP 104/64 07/16/22 15:25 Pulse Ox 96 07/16/22 15:25 Laboratory Results - last 24 hr 07/16/22 07/16/22 07/16/22 06:30 06:30 06:30 WBC 10.12 RBC 3.46 L Hgb 10.7 L Hct 34.0 L MCV 98 H MCH 30.9 MCHC 31.5 L RDW 15.0 H Plt Count 154 MPV 10.9 Immature Gran % 0.3 Neutrophils % 69.8 Lymphocytes % 23.1 Monocytes % 5.3 Eosinophils % 1.1 Basophils % 0.4 Nucleated RBC % 0.0 Absolute Neutrophils 7.06 H Absolute Lymphocytes 2.34 Absolute Monocytes 0.54 Absolute Eosinophils 0.11 Absolute Basophils 0.04 Sodium 148 H Potassium 3.9 Chloride 114 H Carbon Dioxide 27.7 Anion Gap 6.3 BUN 25 H Creatinine 0.6 Est GFR (CKD-EPI 2020) 94.13 Glucose 64 L Calcium 8.7 Magnesium 1.8 C-Reactive Protein Procalcitonin COVID-19 Source SARS-CoV-2 (PCR) Add-On Test Request DONE 07/16/22 07/16/22 07/16/22 06:30 06:30 12:32 WBC RBC Hgb Hct MCV MCH MCHC RDW Plt Count MPV Immature Gran % Neutrophils % Lymphocytes % Monocytes % Eosinophils % Basophils % Nucleated RBC % Absolute Neutrophils Absolute Lymphocytes Absolute Monocytes Absolute Eosinophils Absolute Basophils Sodium 149 H Potassium 4.1 Chloride 114 H Carbon Dioxide 25.3 Anion Gap 9.7 BUN 25 H Creatinine 0.8 Est GFR (CKD-EPI 2020) 77.27 Glucose 109 H Calcium 8.9 Magnesium C-Reactive Protein 1.34 H Procalcitonin < 0.1 COVID-19 Source SARS-CoV-2 (PCR) Add-On Test Request 07/16/22 15:00 WBC RBC Hgb Hct MCV MCH MCHC RDW Plt Count MPV Immature Gran % Neutrophils % Lymphocytes % Monocytes % Eosinophils % Basophils % Nucleated RBC % Absolute Neutrophils Absolute Lymphocytes Absolute Monocytes Absolute Eosinophils Absolute Basophils Sodium Potassium Chloride Carbon Dioxide Anion Gap BUN Creatinine Est GFR (CKD-EPI 2020) Glucose Calcium Magnesium C-Reactive Protein Procalcitonin COVID-19 Source Nasal/Nares SARS-CoV-2 (PCR) Negative Add-On Test Request Reviewed Pertinent PMH: Yes Time Spent with Patient Time Spent with Patient: >50 minutes Time was spent: preparing to see the patient(eg.review tests), obtaining and/or reviewing separately otained hiistory, ordering medications,tests, procedures, referring, communicating with other health aged or disabled carer, indepentently interpreting results, counseling the patient and care coordination
[2022-07-16 19:28] VITALS: BP 100/68; PULSE 75; RESP 18; TEMP 36.3; O2SAT 93
[2022-07-16] MEDS: traZODone 50 MG TAB PO (21:05)
[2022-07-16] MEDS: Atorvastatin 10 MG TAB PO (21:05)
[2022-07-16] MEDS: clonazePAM 1 MG TAB PO (21:05)
[2022-07-16] MEDS: VANCOMYCIN 1,000 MG in Normal Saline 250 ML 166 MG IVPB (21:05)
[2022-07-16 23:11] VITALS: BP 96/56; PULSE 60; RESP 18; TEMP 36.6; O2SAT 94
[2022-07-17] VITALS (7 sets, daily range): BP systolic 93–125; BP diastolic 46–69; PULSE 57–68; RESP 18; TEMP 35.9–36.9; O2SAT 92–98
--- NOTE | 2022-07-17 | DI.RAD_ITS ---
Exam(s) XR CHEST 2V PA LATERAL EXAM: XR CHEST 2V PA LATERAL CLINICAL HISTORY: Persistant cough TECHNIQUE: 2D digital imaging was performed of the chest. Two images were obtained. PA and lateral views were obtained. COMPARISON: No exams were available for comparison FINDINGS: MEDIASTINUM: Normal. HEART: Normal. PULMONARY VASCULATURE: Normal. LUNGS: No focal consolidating infiltrates. There is scarring in the right mid lung. PLEURAL SPACE: No pleural effusion or pneumothorax. BONE:Within normal limits for the patient's age. OTHER FINDINGS:Normal. IMPRESSION: No acute pulmonary findings. DATA REPOSITORY: RADIATION DOSE DELIVERED:
[2022-07-17] MEDS: PIPERACILLIN/TAZO 4.5 GM in Normal Saline 100 ML IVPB ×3 (04:42→19:14)
[2022-07-17 07:18] LABS: Abs Immature Grans 0.03 10^3/uL (0.0-0.06); Absolute Basophil Count 0.03 10^3/uL (0.0-0.2); Absolute Eosinophil Count 0.01 10^3/uL (0.0-0.7); Absolute Lymphocyte Count 1.89 10^3/uL (1.2-3.4); Absolute Monocyte Count 0.16 10^3/uL (0.1-0.8); Basophils % 0.3; Eosinophils % 0.1; HCT 36.6 % (36.0-46.0); HGB 11.6 g/dL (11.2-15.7); Immature Grans % 0.3; Lymphocytes % 21.2; MCH 30.7 pg (27.0-33.0); MCHC 31.7 % (32.0-36.0); MCV 97 fL (80-95); Monocytes % 1.8; Neutrophils % 76.3; Platelet Count 152 10^3/uL (130-400); RBC 3.78 10^6/uL (3.93-5.22); RDW 14.6 % (11.7-14.6); RDW-SD 52.6 fL; WBC 8.92 10^3/uL (4.4-10.8)
[2022-07-17 07:41] LABS: Anion Gap 6.7 mmol/L (3-11); BUN 16 mg/dL (7-18); C-Reactive Protein 2.02 mg/dL (0.0-0.3); CO2 28.3 mmol/L (21.0-32.0); CREATININE 0.7 mg/dL (0.55-1.02); Calcium 8.5 mg/dL (8.5-10.1); Chloride 108 mmol/L (98-107); Glucose 165 mg/dL (74-106); Magnesium 1.6 mg/dL (1.8-2.4); Potassium 3.4 mmol/L (3.5-5.1); Sodium 143 mmol/L (136-145)
[2022-07-17] MEDS: Omeprazole 20 MG CAPCR PO (08:19)
[2022-07-17] MEDS: Divalproex 125 MG SPRINKLE PO ×2 (08:19→19:13)
[2022-07-17] MEDS: Benztropine 1 MG TAB PO ×2 (08:19→19:13)
[2022-07-17] MEDS: Aspirin 81 MG CHEW PO (08:19)
[2022-07-17] MEDS: buPROPion-CR 150 MG TABCR PO (08:19)
[2022-07-17] MEDS: Senna TAB 2 TAB PO ×2 (08:20→19:13)
[2022-07-17] MEDS: Citalopram 20 MG TAB PO (08:20)
[2022-07-17] MEDS: Enoxaparin 40 MG/0.4 ML SYR SC (08:20)
--- NOTE | 2022-07-17 09:12 | W.PM.PROGNOT ---
Date of Service Date of service: 07/17/22 Time of Service: 09:12 Assessment and Plan Assessment and plan (1) Cellulitis of submandibular region: Status: Acute Assessment and plan: Continue IV meds I do not feel the mass today - she is denying pain in her neck in the area where the mass was (2) Hypoglycemia: Status: Acute Assessment and plan: Glucose normalized today glucose 165 mg, 146 before lunch, and now 110. Frequent glucose checks IVF changed to D5W (3) Extrapyramidal and movement disorder: Status: Chronic Assessment and plan: Continue clonazepam; benztropine Check glucose frequently - IVF discontinued (4) Hypokalemia: Status: Acute Assessment and plan: today potassium is 3.4 - repleted orally Monitor (5) Hypomagnesemia: Status: Acute Assessment and plan: today magnesium is 1.6 - repleted orally Monitor (6) Hypernatremia: Status: Acute Assessment and plan: Her sodium is down to 143 from 149 today Will monitor electrolytes (7) DVT prophylaxis: Status: Acute Assessment and plan: Enoxaparin 40 mg sq daily (8) Discharge planning issues: Status: Acute Assessment and plan: Return to [facility] & on oral abx when stable and electrolytes normalize, hopefully 07/18/[address] Xavier Subjective Subjective Patient reports: no new complaints, tolerating a regular diet and afebrile; denies flatus, diarrhea, blood in stool, vomiting or shortness of breath Interval history since last seen: Aleida states she is feeling much better today. She looks good, cheeks are pink. She said she has been drinking more fluids, continued help with meals, she is now asking for help with meals. She was seen by Speech therapy - see their note, diet adjusted per their recommendations Exam Const General: no acute distress, disheveled, frail appearing and No well hydrated Orientation: not alert, awake, not oriented x3 and confused [facility] Head: normal to inspection, no palpable skull fracture, normocephalic and atraumatic Face and sinus: normal facial exam and face symmetric Mouth: tongue normal, mucous membranes dry, moist mucous membranes abnormal, no drooling and no trismus Teeth and gingiva: poor dentition Throat: posterior oropharynx normal Other: Mouth is quite dry. She has only a few teeth still remaining in place. There is no erythema or abscesses visible in the mouth, continues to be dry Eyes Conjunctivae: normal conjunctivae Sclera: normal sclerae Neck Neck: no JVD Lymphatic: lymphadenopathy (right) Other: There is no notable or obvious cellulitis, no erythema, of the cheek although there does appear to be cellulitis on the CT scan. I can not feel the submandibular mass at all today Chest Chest: normal inspection of the chest Resp Effort & Inspection: normal respiratory effort Auscultation: clear to auscultation bilaterally, no rales, no rhonchi and no wheezes Cardio Rate: regular rate Rhythm: regular rhythm Heart Sounds: S1 normal, S2 normal, no gallops and no murmurs GI Palpation: soft, no hepatosplenomegaly, not firm and nontender Neuro General: patient alert, patient awake and tone normal Other: She does have a moderate amount of continuous movements of her arms, legs and jaw, an extraparametal movement disorder. Her speech is difficult to understand. Extrem General: normal to inspection, no calf tenderness bilaterally, no cyanosis and no edema Objective Last Vital Signs Temp 35.9 C L 07/17/22 07:16 Pulse 57 L 07/17/22 07:16 Resp 18 07/17/22 07:16 BP 111/69 07/17/22 07:16 Pulse Ox 95 07/17/22 07:16 Laboratory Results - last 24 hr 07/16/22 07/16/22 07/17/22 12:32 15:00 06:25 WBC 8.92 RBC 3.78 L Hgb 11.6 Hct 36.6 MCV 97 H MCH 30.7 MCHC 31.7 L RDW 14.6 Plt Count 152 MPV 11.0 Immature Gran % 0.3 Neutrophils % 76.3 Lymphocytes % 21.2 Monocytes % 1.8 Eosinophils % 0.1 Basophils % 0.3 Nucleated RBC % 0.0 Absolute Neutrophils 6.80 H Absolute Lymphocytes 1.89 Absolute Monocytes 0.16 Absolute Eosinophils 0.01 Absolute Basophils 0.03 Sodium 149 H Potassium 4.1 Chloride 114 H Carbon Dioxide 25.3 Anion Gap 9.7 BUN 25 H Creatinine 0.8 Est GFR (CKD-EPI 2020) 77.27 Glucose 109 H Calcium 8.9 Magnesium C-Reactive Protein COVID-19 Source Nasal/Nares SARS-CoV-2 (PCR) Negative 07/17/22 06:25 WBC RBC Hgb Hct MCV MCH MCHC RDW Plt Count MPV Immature Gran % Neutrophils % Lymphocytes % Monocytes % Eosinophils % Basophils % Nucleated RBC % Absolute Neutrophils Absolute Lymphocytes Absolute Monocytes Absolute Eosinophils Absolute Basophils Sodium 143 Potassium 3.4 L Chloride 108 H Carbon Dioxide 28.3 Anion Gap 6.7 BUN 16 Creatinine 0.7 Est GFR (CKD-EPI 2020) 90.70 Glucose 165 H Calcium 8.5 Magnesium 1.6 L C-Reactive Protein 2.02 H COVID-19 Source SARS-CoV-2 (PCR) Reviewed Pertinent PMH: Yes Time Spent with Patient Time Spent with Patient: 25-34 minutes Time was spent: preparing to see the patient(eg.review tests), obtaining and/or reviewing separately otained hiistory, ordering medications,tests, procedures, referring, communicating with other health respite care provider, indepentently interpreting results, counseling the patient and care coordination
[2022-07-17] MEDS: Magnesium Chloride 64 MG TABCR PO ×2 (09:20→19:13)
[2022-07-17] MEDS: Potassium Chloride 20 MEQ TABCR 40 MEQ PO (09:21)
--- NOTE | 2022-07-17 09:46 | PDOC.CMPRO ---
- If Service Date Differs Date of service: 07/17/22 Time of Service: 09:46 Care Management Progress Note S/O:Aleida was scheduled to return to [facility] today however her blood sugar was quite low yesterday and the provider wanted to observe her one more day. The provider believes it is due to a medication which has since been discontinued. Aleida's blood sugars today have been between 150 and 200. If she continues to remain stable, she will likely return to rehab tomorrow. She also had a chest Xray today which was negative for any acute findings. CM called and updated her daughter Isa, as requested. A: Aleida is a 76 year old woman admitted on 07/13/22 with cellulitis P:Anticipate Aleida will return to [facility] when medically cleared by provider. She will follow up with facility provider and plan of care and transport via EMS vs w/c van. CM to follow and support discharge needs.
--- NOTE | 2022-07-17 10:33 | W.NUTCONSULT ---
Date of service: 07/17/22 Time of Service: 10:33 Nutritional Consult ASSESSMENT: Aleida admitted on 07/13/22 with cellulitis of submandibular region: hypoglycemia, hypernatremia, dehydration. BMI 20 on low end of normal for advanced age. PMH: extrapyramidal and movement disorder, severe dementia. Following Regular minced and moist meal plan with mildly thick liquids. PO intake has varied. Recommend supplementing po intake with ensure BID. Estimated Needs: [id number] kcal, 46-55 g protein, 1400 ml fluid. Needs to complete 70% of meals to meet macronutrient needs NUTRITIONAL DIAGNOSIS: Inadequate nutrient intake due to dementia and cellulitis of submandibular region INTERVENTION: Continue current meal plan supplement with ensure BID MONITORING AND EVALUATION: weight, po intake, labs Time Spent in Nutritional Counseling and Treatment: 0
[2022-07-17] MEDS: VANCOMYCIN/WATER (PEG) 750 MG/150 ML BAG 100 MG IVPB ×2 (10:40→21:50)
[2022-07-17] MEDS: Normal Saline Flush 10 ML SYR IVP (12:24)
--- NOTE | 2022-07-17 18:32 | SP_ITS ---
Date of service: 07/17/22 Time of Service: 15:53 Subjective Pt lying comfortably in bed at initiation of visit, watching TV. Dry mouth evident. Pt was conversational but confused. Objective Objective Pt presented to ED with swelling of R side of neck, deemed submandibular cellulitis. Findings of neck CT: Again noted is enlargement of the left parotid gland with enhancement.? Enlarged adjacent lymph nodes.? Adjacent soft tissue edema consistent with cellulitis. IMPRESSION: No significant change in appearance of the right parotid gland and surrounding inflammation.? The findings likely represent inflammation however mass is not excluded and follow-up after course of treatment is recommended. Pt with PMH of dementia, COPD, GERD, extrapyramidal movement disorder, tardive dyskinesia. Pt currently consuming a minced and moist diet with nectar thick liquids. Pt unable to participate in oral motor exam, either due to refusal of task requested or inability to follow command. Pt fully edentulous on superior gum ridge; edentulousness noted to anterior teeth on inferior gum ridge. Remaining teeth on lower gum ridge bilaterally appeared healthy and intact. Pt stated she has dentures at home and eats with them. Pt participated in PO trials of thin liquids by spoon/cup/straw, pureed solids, and regular solids. PO trials were provided with pt in a suboptimal position; BATH SOLUTION MAKER assisted pt with sitting upright 90 degrees, but due to motor disorder she maneuvered herself to lean on her R side. No overt s/sx airway disturbance noted with thin liquids during any method of administration. Pt demonstrated disorganized bolus formation and other oral phase abnormalities due to severity of tardive dyskinesia, but no postprandial residue was present upon inspection of oral cavity. No anterior or lateral bolus escape was observed. Pt was unable to bite off a piece of radames cracker, then when provided with a piece, she demonstrated open-mouth mastication with minimal bolus breakdown. Radames cracker was manually removed from mouth. Assessment Pt presents with moderate oral phase dysphagia due to tardive dyskinesia, cognitive deficits, and missing teeth. Pharyngeal phase appears to be WFL. No overt s/sx esophageal dysphagia noted at bedside today. Recommendations: Recommend upgrade to thin liquids. Minced and moist solids appear to be least restrictive at this time. Recommend medications whole or crushed in puree as able. Recommend pt is out of bed for all meals to assist with upright positioning. Pt would also benefit from dry mouth management strategies i.e., oral moisturizing agents, ice chips. Plan No further BATH SOLUTION MAKER services warranted at this time. Coding- 78124 Evaluation of oral and pharyngeal swallowing function Coding Diagnoses
[2022-07-17 18:40] LABS: Source Nasal/Nares
[2022-07-17 19:26] LABS: COVID-19 PCR Negative (Negative)
[2022-07-17] MEDS: clonazePAM 0.5 MG TAB PO (19:37)
[2022-07-17] MEDS: Atorvastatin 10 MG TAB PO (21:50)
[2022-07-17] MEDS: traZODone 50 MG TAB PO (21:50)
[2022-07-17] MEDS: clonazePAM 1 MG TAB PO (21:50)
[2022-07-18 03:46] VITALS: BP 102/63; PULSE 51; RESP 18; TEMP 35.4; O2SAT 98
[2022-07-18] MEDS: PIPERACILLIN/TAZO 4.5 GM in Normal Saline 100 ML IVPB ×3 (04:12→20:15)
[2022-07-18] MEDS: Normal Saline 500 ML 30 ML IV (04:13)
[2022-07-18] MEDS: Normal Saline Flush 10 ML SYR IVP ×5 (04:13→19:26)
[2022-07-18 06:42] LABS: Abs Immature Grans 0.04 10^3/uL (0.0-0.06); Absolute Basophil Count 0.06 10^3/uL (0.0-0.2); Absolute Eosinophil Count 0.25 10^3/uL (0.0-0.7); Absolute Monocyte Count 0.39 10^3/uL (0.1-0.8); Absolute Neutrophil Count 3.99 10^3/uL (1.2-6.7); Basophils % 0.8; Eosinophils % 3.2; HGB 10.7 g/dL (11.2-15.7); Immature Grans % 0.5; Lymphocytes % 38.8; MCH 30.5 pg (27.0-33.0); MCHC 31.5 % (32.0-36.0); MCV 97 fL (80-95); MPV 10.6 fL (8.0-11.0); Neutrophils % 51.7; Platelet Count 142 10^3/uL (130-400); RBC 3.51 10^6/uL (3.93-5.22); RDW 14.6 % (11.7-14.6); RDW-SD 52.4 fL; WBC 7.73 10^3/uL (4.4-10.8)
[2022-07-18 06:56] LABS: Anion Gap 5.2 mmol/L (3-11); BUN 16 mg/dL (7-18); CO2 28.8 mmol/L (21.0-32.0); CREATININE 0.6 mg/dL (0.55-1.02); Calcium 8.3 mg/dL (8.5-10.1); Chloride 110 mmol/L (98-107); Estimated GFR 94.13 (mL/min/1.73m2); Glucose 60 mg/dL (74-106); Magnesium 1.7 mg/dL (1.8-2.4); Potassium 3.6 mmol/L (3.5-5.1); Sodium 144 mmol/L (136-145)
[2022-07-18 07:30] VITALS: BP 118/74; PULSE 50; RESP 18; TEMP 35.6; O2SAT 95
[2022-07-18] MEDS: Glucose Oral Gel 15 GM/37.5 GM TUBE PO ×2 (08:25→10:57)
[2022-07-18] MEDS: Divalproex 125 MG SPRINKLE PO ×2 (08:32→20:12)
[2022-07-18] MEDS: Aspirin 81 MG CHEW PO (08:32)
[2022-07-18] MEDS: Omeprazole 20 MG CAPCR PO (08:33)
[2022-07-18] MEDS: buPROPion-CR 150 MG TABCR PO (08:33)
[2022-07-18] MEDS: Citalopram 20 MG TAB PO (08:33)
[2022-07-18] MEDS: Benztropine 1 MG TAB PO ×2 (08:33→20:13)
[2022-07-18] MEDS: Enoxaparin 40 MG/0.4 ML SYR SC (08:34)
--- NOTE | 2022-07-18 09:25 | PDOC.CMPRO ---
- If Service Date Differs Date of service: 07/18/22 Time of Service: 09:25 Care Management Progress Note S/O:Aleida was scheduled to return to [facility] today however her blood sugar is again low. Additional testing will be ordered including an A-1C. Aleida does not carry the diagnosis of diabetes so her baseline blood sugars are unknown. She will also be given more steroids as the provider feels she may have adrenal insufficiency. CM [facility] well as her daughter Isa to update them on today's findings and the decision to have Aleida remain at [facility] for the time being. A: Aleida is a 76 year old woman admitted on 07/13/22 with cellulitis P:Anticipate Aleida will return to [facility] when medically cleared by provider. She will follow up with facility provider and plan of care and transport via EMS vs w/c van. CM to follow and support discharge needs.
[2022-07-18] MEDS: MAGNESIUM SULFATE 2 GM/50 ML BAG IVPB (09:26)
[2022-07-18] MEDS: Dextrose 50%-Water 25 GM/50 ML SYR IVP (11:34)
[2022-07-18] MEDS: Hydrocortisone SOD SUC. 100 MG VIAL IVP (11:37)
[2022-07-18] MEDS: VANCOMYCIN/WATER (PEG) 750 MG/150 ML BAG 100 MG IVPB ×2 (11:45→21:51)
[2022-07-18 12:00] VITALS: PULSE 53; RESP 18; TEMP 35.9; O2SAT 96
--- NOTE | 2022-07-18 12:30 | RT.EKG_ITS ---
APPROVED REPORT Exam: Resting ECG Reason for Exam: Bradycardia Patient Location: I HR:59 bpm ECG Measurements Heart Rate 59 AXIS MO 151 P 58 QRSd 115 QRS 20 QT 451 T 53 QTc 447 Conclusion Sinus rhythm...normal P axis, V-rate 50- 99 Low voltage, extremity and precordial leads...extremity<0.5mV, precordial<1.0mV
--- NOTE | 2022-07-18 12:35 | PGE_ITS ---
Date of Service Date of service: 07/18/22 Time of Service: 12:35 Assessment and Plan Assessment and plan (1) Cellulitis of submandibular region: Status: Acute Assessment and plan: Continue IV meds- she denies pain in her neck in the area where the mass was previously felt; I can't feel anything today, or see anything. Procalcitonin repeat 07/19/2022 and CRP trending (2) Extrapyramidal and movement disorder: Status: Chronic Assessment and plan: Continue clonazepam; benztropine (3) Hypoglycemia: Status: Acute Assessment and plan: Glucose in the 60s again today - D5LR started at 75 ml/h, 12.5 gm of Dextrose given IV; A1C 4.8 Hydrocortisone given in case of adrenal insufficiency - random cortisol level ordered and still pending, it was a send out - continue hydrocortison 60 mg IV BID Dextose 12.5 gm PRN glucose < 60 mg/dl (4) Hypokalemia: Status: Acute Assessment and plan: today potassium is 3.6 Monitor (5) Hypomagnesemia: Status: Acute Assessment and plan: today magnesium is 1.7 - repleted orally - she is having trouble swallowing (this is not new) we did change her to mag ox 400 mg BID Monitor (6) Hypernatremia: Status: Acute Assessment and plan: Her sodium is 144 today Will monitor electrolytes (7) DVT prophylaxis: Status: Acute Assessment and plan: Enoxaparin 40 mg sq daily (8) Discharge planning issues: Status: Acute Assessment and plan: Return to [facility] H & R on oral abx when stable and electrolytes normalize, recommend H&R do BID glucose levels - plan for discharge 07/19/[address] Xavier Subjective Subjective Patient reports: no new complaints, tolerating a regular diet, voiding w/o difficulty, bowel movement and afebrile; denies diarrhea, nausea, vomiting or shortness of breath Interval history since last seen: Aleida is in her usual state, awake, alert, confused, she states she feels well when asked. She has eaten today. I spoke with the [facility] regarding her usual diet and if she had dips in glucose - they said they did not know of any and her diet is similar here. She does require assistance with meals and nursing has been helping her Exam Const General: no acute distress, disheveled, frail appearing and No well hydrated Orientation: not alert, awake, not oriented x3 and confused [facility] Head: normal to inspection, no palpable skull fracture, normocephalic and atraumatic Face and sinus: normal facial exam and face symmetric Mouth: tongue normal, mucous membranes dry, moist mucous membranes abnormal, no drooling and no trismus Teeth and gingiva: poor dentition Throat: posterior oropharynx normal Other: Mouth is quite dry. She has only a few teeth still remaining in place. There is no erythema or abscesses visible in the mouth, continues to be dry Eyes Conjunctivae: normal conjunctivae Sclera: normal sclerae Neck Neck: no JVD Lymphatic: lymphadenopathy (right) Other: There is no notable or obvious cellulitis, no erythema, of the cheek although there does appear to be cellulitis on the CT scan. I can not feel the submandibular mass at all today Chest Chest: normal inspection of the chest Resp Effort & Inspection: normal respiratory effort Auscultation: clear to auscultation bilaterally, no rales, no rhonchi and no wheezes Cardio Rate: regular rate Rhythm: regular rhythm Heart Sounds: S1 normal, S2 normal, no gallops and no murmurs GI Palpation: soft, no hepatosplenomegaly, not firm and nontender Neuro General: patient alert, patient awake and tone normal Other: She does have a moderate amount of continuous movements of her arms, legs and jaw, an extraparametal movement disorder. Her speech is difficult to under stand. Extrem General: normal to inspection, no calf tenderness bilaterally, no cyanosis and no edema Objective Last Vital Signs Temp 35.9 C L 07/18/22 12:00 Pulse 53 L 07/18/22 12:00 Resp 18 07/18/22 12:00 BP 118/74 07/18/22 07:30 Pulse Ox 96 07/18/22 12:00 Laboratory Results - last 24 hr 07/17/22 07/18/22 07/18/22 18:15 06:10 06:10 WBC 7.73 RBC 3.51 L Hgb 10.7 L Hct 34.0 L MCV 97 H MCH 30.5 MCHC 31.5 L RDW 14.6 Plt Count 142 MPV 10.6 Immature Gran % 0.5 Neutrophils % 51.7 Lymphocytes % 38.8 Monocytes % 5.0 Eosinophils % 3.2 Basophils % 0.8 Nucleated RBC % 0.0 Absolute Neutrophils 3.99 Absolute Lymphocytes 3.00 Absolute Monocytes 0.39 Absolute Eosinophils 0.25 Absolute Basophils 0.06 Sodium 144 Potassium 3.6 Chloride 110 H Carbon Dioxide 28.8 Anion Gap 5.2 BUN 16 Creatinine 0.6 Est GFR (CKD-EPI 2020) 94.13 Glucose 60 L Calcium 8.3 L Magnesium 1.7 L Vancomycin Trough COVID-19 Source Nasal/Nares SARS-CoV-2 (PCR) Negative 07/18/22 09:17 WBC RBC Hgb Hct MCV MCH MCHC RDW Plt Count MPV Immature Gran % Neutrophils % Lymphocytes % Monocytes % Eosinophils % Basophils % Nucleated RBC % Absolute Neutrophils Absolute Lymphocytes Absolute Monocytes Absolute Eosinophils Absolute Basophils Sodium Potassium Chloride Carbon Dioxide Anion Gap BUN Creatinine Est GFR (CKD-EPI 2020) Glucose Calcium Magnesium Vancomycin Trough 13.0 COVID-19 Source SARS-CoV-2 (PCR) Time Spent with Patient Time Spent with Patient: 35-49 minutes Time was spent: preparing to see the patient(eg.review tests), obtaining and/or reviewing separately otained hiistory, ordering medications,tests, procedures, referring, communicating with other health daycare teacher, indepentently interpreting results, counseling the patient and care coordination
[2022-07-18 13:18] LABS: Lab Add On Test DONE
[2022-07-18 13:33] LABS: Hemoglobin A1C 4.8 % (<5.7)
[2022-07-18 15:24] VITALS: BP 96/50; PULSE 67; RESP 18; TEMP 36.5; O2SAT 96
[2022-07-18 19:13] VITALS: BP 94/34; PULSE 67; RESP 16; TEMP 36.9; O2SAT 96
[2022-07-18] MEDS: DEXTROSE 5%-LACTATED RINGERS 1,000 ML 75 ML IV (19:26)
[2022-07-18] MEDS: Hydrocortisone SOD SUC. 100 MG VIAL 50 MG IVP (20:12)
[2022-07-18] MEDS: Senna TAB 2 TAB PO (20:13)
[2022-07-18] MEDS: Magnesium Oxide 400 MG TAB PO (20:13)
[2022-07-18] MEDS: clonazePAM 1 MG TAB PO (21:51)
[2022-07-18] MEDS: Atorvastatin 10 MG TAB PO (21:51)
[2022-07-18] MEDS: traZODone 50 MG TAB PO (21:51)
[2022-07-18 23:14] VITALS: BP 94/53; PULSE 67; RESP 16; TEMP 36.1; O2SAT 95
[2022-07-19 03:09] VITALS: BP 112/65; PULSE 61; RESP 16; TEMP 35.7; O2SAT 98
[2022-07-19] MEDS: PIPERACILLIN/TAZO 4.5 GM in Normal Saline 100 ML IVPB ×3 (03:12→19:35)
[2022-07-19] MEDS: Hydrocortisone SOD SUC. 100 MG VIAL 50 MG IVP ×3 (03:41→19:03)
[2022-07-19 06:46] LABS: Abs Immature Grans 0.02 10^3/uL (0.0-0.06); Absolute Basophil Count 0.01 10^3/uL (0.0-0.2); Absolute Eosinophil Count 0.01 10^3/uL (0.0-0.7); Absolute Lymphocyte Count 1.39 10^3/uL (1.2-3.4); Absolute Monocyte Count 0.14 10^3/uL (0.1-0.8); Absolute Neutrophil Count 5.97 10^3/uL (1.2-6.7); Basophils % 0.1; Eosinophils % 0.1; HCT 34.2 % (36.0-46.0); HGB 10.7 g/dL (11.2-15.7); Immature Grans % 0.3; Lymphocytes % 18.4; MCH 29.9 pg (27.0-33.0); MCHC 31.3 % (32.0-36.0); MCV 96 fL (80-95); MPV 10.7 fL (8.0-11.0); Monocytes % 1.9; Neutrophils % 79.2; Platelet Count 185 10^3/uL (130-400); RBC 3.58 10^6/uL (3.93-5.22); RDW 14.5 % (11.7-14.6); RDW-SD 50.7 fL; WBC 7.54 10^3/uL (4.4-10.8)
[2022-07-19 06:58] LABS: Anion Gap 4.9 mmol/L (3-11); BUN 12 mg/dL (7-18); CO2 29.1 mmol/L (21.0-32.0); CREATININE 0.7 mg/dL (0.55-1.02); Calcium 8.1 mg/dL (8.5-10.1); Chloride 109 mmol/L (98-107); Glucose 136 mg/dL (74-106); Potassium 3.4 mmol/L (3.5-5.1); Sodium 143 mmol/L (136-145)
--- NOTE | 2022-07-19 08:38 | CMPROGNOTE_ITS ---
- If Service Date Differs Date of service: 07/19/22 Time of Service: 08:38 Care Management Progress Note S/O:Aleida remains pleasantly confused. She was lying in bed, turning from side to side when CM met with her. She was very restless and appeared unable to lie still. Aleida asked CM for a BLT. Earlier today she asked staff for a hot dog. Her appetite has been good and she is eating 100% of her meals. .Ehsans blood sugars have been in the 130s today and the plan is for her to return to [facility] tomorrow. A: Aleida is a 76 year old woman admitted on 07/13/22 with cellulitis P:Anticipate Aleida will return to [facility] when medical ly cleared by provider. She will follow up with facility provider and plan of care and transport via EMS vs w/c van. CM to follow and support discharge needs.
[2022-07-19] MEDS: Potassium Chloride Liquid 20 MEQ PKT PO (08:52)
[2022-07-19] MEDS: Enoxaparin 40 MG/0.4 ML SYR SC (08:52)
[2022-07-19] MEDS: Magnesium Oxide 400 MG TAB PO ×2 (08:53→19:03)
[2022-07-19] MEDS: buPROPion-CR 150 MG TABCR PO (08:54)
[2022-07-19] MEDS: Aspirin 81 MG CHEW PO (08:54)
[2022-07-19] MEDS: Benztropine 1 MG TAB PO ×2 (08:54→19:03)
[2022-07-19] MEDS: Omeprazole 20 MG CAPCR PO (08:54)
[2022-07-19] MEDS: Citalopram 20 MG TAB PO (08:54)
[2022-07-19] MEDS: Divalproex 125 MG SPRINKLE PO ×2 (08:55→19:03)
[2022-07-19] MEDS: Normal Saline Flush 10 ML SYR IVP (08:56)
[2022-07-19 09:20] VITALS: BP 104/60; PULSE 59; RESP 16; TEMP 36; O2SAT 94
[2022-07-19] MEDS: VANCOMYCIN/WATER (PEG) 750 MG/150 ML BAG 100 MG IVPB (09:21)
[2022-07-19 11:50] VITALS: BP 100/60; PULSE 77; RESP 18; TEMP 35.9; O2SAT 91
--- NOTE | 2022-07-19 14:12 | PGE_ITS ---
Date of Service Date of service: 07/19/22 Time of Service: 14:12 Assessment and Plan Assessment and plan (1) Cellulitis of submandibular region: Status: Acute Assessment and plan: continues to resolve. CRP trending, will repeat in am (2) Extrapyramidal and movement disorder: Status: Chronic Assessment and plan: Continue clonazepam; benztropine (3) Hypoglycemia: Status: Acute Assessment and plan: stable at this time; A1C 4.8 Hydrocortisone given in case of adrenal insufficiency - random cortisol level ordered and still pending, it was a send out - stop hydrocortisone 60 mg IV BID (4) Hypokalemia: Status: Acute Assessment and plan: replete and follow (5) Hypomagnesemia: Status: Acute Assessment and plan: continue increased mag ox 400 mg BID Monitor (6) Hypernatremia: Status: Acute Assessment and plan: stable (7) DVT prophylaxis: Status: Acute Assessment and plan: Enoxaparin 40 mg sq daily (8) Discharge planning issues: Status: Acute Assessment and plan: Return to [facility] H & R on oral abx when stable and electrolytes normalize, recommend H&R do BID glucose levels - plan for discharge 07/19/[address] Xavier Subjective Subjective Patient reports: no new complaints, tolerating liquids well, tolerating a regular diet and afebrile; denies shortness of breath Exam Const General: cooperative and frail appearing HENAR Mouth: moist mucous membranes Teeth and gingiva: poor dentition (missing front upper and lowers) Neck Neck: normal visual inspection Resp Effort & Inspection: normal respiratory effort Cardio Rate: regular rate Rhythm: regular rhythm GI Inspection: normal to inspection Palpation: soft Auscultation: normal bowel sounds Skin General skin exam: no rashes or lesions noted Neuro General: patient alert and patient awake Extrem General: normal to inspection and no pedal edema Objective Last Vital Signs Temp 35.9 C L 07/19/22 11:50 Pulse 77 07/19/22 11:50 Resp 18 07/19/22 11:50 BP 100/60 07/19/22 11:50 Pulse Ox 91 L 07/19/22 11:50 Laboratory Results - last 24 hr 07/15/22 07/19/22 07/19/22 07:30 06:30 06:30 WBC 7.54 RBC 3.58 L Hgb 10.7 L Hct 34.2 L MCV 96 H MCH 29.9 MCHC 31.3 L RDW 14.5 Plt Count 185 MPV 10.7 Immature Gran % 0.3 Neutrophils % 79.2 Lymphocytes % 18.4 Monocytes % 1.9 Eosinophils % 0.1 Basophils % 0.1 Nucleated RBC % 0.0 Absolute Neutrophils 5.97 Absolute Lymphocytes 1.39 Absolute Monocytes 0.14 Absolute Eosinophils 0.01 Absolute Basophils 0.01 Sodium 143 Potassium 3.4 L Chloride 109 H Carbon Dioxide 29.1 Anion Gap 4.9 BUN 12 Creatinine 0.7 Est GFR (CKD-EPI 2020) 90.70 Glucose 136 H Calcium 8.1 L Magnesium 2.0 Cortisol 13 Time Spent with Patient Time Spent with Patient: 35-49 minutes Time was spent: preparing to see the patient(eg.review tests), obtaining and/or reviewing separately otained hiistory, ordering medications,tests, procedures, referring, communicating with other health career technical education teacher, indepentently interpreting results and care coordination
[2022-07-19 14:35] VITALS: BP 100/70; PULSE 70; RESP 19; TEMP 35.9; O2SAT 96
[2022-07-19 19:39] VITALS: BP 100/60; PULSE 72; RESP 20; TEMP 36.9; O2SAT 96
[2022-07-19] MEDS: Atorvastatin 10 MG TAB PO (21:37)
[2022-07-19] MEDS: clonazePAM 1 MG TAB PO (21:37)
[2022-07-19] MEDS: traZODone 50 MG TAB PO (21:37)
[2022-07-19 22:42] VITALS: BP 95/65; PULSE 70; RESP 18; TEMP 36.7; O2SAT 96
[2022-07-19] MEDS: VANCOMYCIN/WATER (PEG) 750 MG/150 ML BAG 150 MG IVPB (22:56)
[2022-07-20] MEDS: Normal Saline Flush 10 ML SYR IVP ×3 (03:24→21:58)
[2022-07-20] MEDS: PIPERACILLIN/TAZO 4.5 GM in Normal Saline 100 ML IVPB (03:26)
[2022-07-20 03:51] VITALS: BP 121/62; PULSE 60; RESP 16; TEMP 36.7; O2SAT 98
[2022-07-20 07:02] VITALS: BP 125/75; PULSE 62; RESP 17; TEMP 36.1; O2SAT 94
[2022-07-20 07:12] LABS: Abs Immature Grans 0.03 10^3/uL (0.0-0.06); Absolute Basophil Count 0.01 10^3/uL (0.0-0.2); Absolute Eosinophil Count 0.01 10^3/uL (0.0-0.7); Absolute Lymphocyte Count 2.32 10^3/uL (1.2-3.4); Absolute Monocyte Count 0.37 10^3/uL (0.1-0.8); Absolute Neutrophil Count 5.18 10^3/uL (1.2-6.7); Basophils % 0.1; Eosinophils % 0.1; HCT 31.5 % (36.0-46.0); HGB 10.3 g/dL (11.2-15.7); Immature Grans % 0.4; Lymphocytes % 29.3; MCH 30.6 pg (27.0-33.0); MCHC 32.7 % (32.0-36.0); MCV 94 fL (80-95); MPV 10.9 fL (8.0-11.0); Monocytes % 4.7; Neutrophils % 65.4; Platelet Count 203 10^3/uL (130-400); RBC 3.37 10^6/uL (3.93-5.22); RDW 14.8 % (11.7-14.6); RDW-SD 50.9 fL; WBC 7.92 10^3/uL (4.4-10.8)
[2022-07-20 07:25] LABS: Anion Gap 7.4 mmol/L (3-11); BUN 14 mg/dL (7-18); C-Reactive Protein 0.34 mg/dL (0.0-0.3); CO2 27.6 mmol/L (21.0-32.0); CREATININE 0.5 mg/dL (0.55-1.02); Calcium 8.2 mg/dL (8.5-10.1); Chloride 110 mmol/L (98-107); Estimated GFR 98.36 (mL/min/1.73m2); Glucose 99 mg/dL (74-106); Magnesium 2.1 mg/dL (1.8-2.4); Potassium 3.1 mmol/L (3.5-5.1); Sodium 145 mmol/L (136-145)
[2022-07-20] MEDS: Benztropine 1 MG TAB PO ×2 (08:03→19:40)
[2022-07-20] MEDS: Omeprazole 20 MG CAPCR PO (08:03)
[2022-07-20] MEDS: Aspirin 81 MG CHEW PO (08:03)
[2022-07-20] MEDS: Divalproex 125 MG SPRINKLE PO ×2 (08:03→19:35)
[2022-07-20] MEDS: Citalopram 20 MG TAB PO (08:03)
[2022-07-20] MEDS: buPROPion-CR 150 MG TABCR PO (08:03)
[2022-07-20] MEDS: Magnesium Oxide 400 MG TAB PO ×2 (08:03→19:35)
[2022-07-20] MEDS: Enoxaparin 40 MG/0.4 ML SYR SC (08:03)
[2022-07-20] MEDS: Senna TAB 2 TAB PO ×2 (08:03→19:34)
[2022-07-20] MEDS: Hydrocortisone SOD SUC. 100 MG VIAL 50 MG IVP ×2 (08:04→21:58)
--- NOTE | 2022-07-20 10:12 | W.PM.DS.N ---
Date of service: 07/20/22 Time of Service: 10:12 DS: Diagnosis Discharge Diagnosis (1) Cellulitis of submandibular region: Status: Acute (2) Extrapyramidal and movement disorder: Status: Chronic (3) Hypoglycemia: Status: Acute (4) Hypokalemia: Status: Acute (5) Hypomagnesemia: Status: Acute (6) Hypernatremia: Status: Acute Discharge Plan Disposition Patient Disposition: [facility]) Condition: Improving Discharge Details Reason For Visit: Submandibular Cellulitis Admit Date/Time: 07/13/22 20:14 Admit Provider: Kendall Henao Attending Provider: Kendall Henao Primary Care Provider: Vaughn Navarro Hospital Course Hospital Course: This is a 76-year-old female patient past medical history significant for bipolar disorder dementia EPMD who presented to the emergency department with cellulitis of the submandibular region. She was started on cefepime and vancomycin this was down stepped to oral clindamycin. It was noted that her blood sugars were dropping with readings less than 60. It was thought that she was possibly becoming septic so the clindamycin was changed back to IV Zosyn and vancomycin. It was also thought that the hypoglycemia may have been secondary to amantadine which was stopped. Cortisol level checked and within normal range at 13. She was given hydrocortisone IV as it was suspected she could be adrenally insufficient. Her D5 half saline was stopped and her blood sugars did normalize. She should continue to have her blood sugars checked before meals and at bedtime outpatient and should she continue to be hypoglycemic further outpatient testing will be warranted. She has been hemodynamically stable is eating and drinking and is to be discharged back to [facility] by wheelchair [place]. Discharged on Augmentin to complete 5 more days. Discharge is discussed with Dr. Baird [place] Meds and New Rx's Prescriptions: New Mag 64 64 mg Tablet,Delayed Release (Dr/Ec) 64 mg PO BID Qty: 30 0RF amoxicillin-pot clavulanate 875-125 mg tablet 1 tab PO BID Qty: 10 0RF Continued bupropion HCl 150 mg Tablet Sustained-Release 12 Hr 150 mg PO DAILY sennosides [Senokot] 8.6 mg Tablet See Rx Instructions .ROUTE .COMPLEX Rx Instructions: Take 2 tabs PO BID acetaminophen 325 mg Tablet 650 mg PO Q4H PRN Rx Instructions: for temp 100F or above trazodone 50 mg Tablet 50 mg PO QHS atorvastatin 10 mg Tablet 10 mg PO QHS clonazepam 0.5 mg Tablet 0.5 mg PO BID PRN clonazepam 1 mg Tablet 1 mg PO QHS Rx Instructions: administer 30 minutes before bedtime citalopram 20 mg Tablet 20 mg PO DAILY magnesium hydroxide [Milk of Magnesia] 400 mg/5 mL Suspension 30 ml PO DAILY PRN bisacodyl [Dulcolax (bisacodyl)] 10 mg Suppository 10 mg NV DAILY PRN ferrous sulfate 325 mg (65 mg iron) Tablet 325 mg PO DAILY benztropine 1 mg Tablet 1 mg PO BID aspirin 81 mg Tablet,Chewable 81 mg PO DAILY polyethylene glycol 3350 [Miralax] 17 gram/dose Powder 17 g PO DAILY PRN divalproex [Depakote Sprinkles] 125 mg Capsule, Delayed Rel Sprinkle 125 mg PO BID cholecalciferol (vitamin D3) [Vitamin D3] 25 mcg (1,000 unit) Capsule 25 mcg PO DAILY omeprazole 20 mg Tablet,Delayed Release (Dr/Ec) 20 mg PO DAILY Changed potassium chloride 20 mEq Tablet Extended Release 40 meq PO DAILY Qty: 0 0RF Discharge Instructions Instructions: Cellulitis (DC) Stand Alone Forms: Nursing Discharge Form Referrals: Vaughn Navarro [Primary Care Provider] - (Follow up per Health & Rehab ) Activity:: Activity as Tolerated Equipment/Supplies:: Walker Diet:: Low Sodium Discharge Orders Discharge Orders: Discharge Order (Routine); Ordered 07/20/22 Ordered By: Sofia Lopez DS: Summary Time Spent with Patient providing and/or coordinating discharge services: Greater than 30 minutes Status at Discharge Functional status at discharge: uses cane/walker Overall status at discharge: patient is progressing back to baseline Mental Status: mental status grossly normal Speech and Movement: other (movement disorder) Mood: congruent mood Affect: normal affect Exam Const General: cooperative and frail appearing HENMT Mouth: moist mucous membranes Teeth and gingiva: poor dentition (missing front upper and lowers) Neck Neck: normal visual inspection Resp Effort & Inspection: normal respiratory effort Cardio Rate: regular rate Rhythm: regular rhythm GI Inspection: normal to inspection Palpation: soft Auscultation: normal bowel sounds Skin General skin exam: no rashes or lesions noted Neuro General: patient alert and patient awake Extrem General: normal to inspection and no pedal edema Psych Mental Status: mental status grossly normal Speech and Movement: other (movement disorder) Mood: congruent mood Affect: normal affect DS: Data Vitals/I&O Vitals and I&O: Vital Signs Temperature 36.1 C L 07/20/22 07:02 Temperature Source Tympanic 07/20/22 07:02 Pulse 62 07/20/22 07:02 Pulse Rhythm Regular 07/20/22 00:46 Pulse 68 07/14/22 12:01 Respiratory Rate 17 07/20/22 07:02 Respiratory Effort Normal, Non-Labored 07/20/22 00:46 Respiratory Depth Normal 07/20/22 00:46 Respiratory Pattern Normal 07/20/22 00:46 Blood Pressure 125/75 07/20/22 07:02 Blood Pressure Mean 97 07/14/22 12:01 Blood Pressure Position Supine 07/13/22 23:45 Pulse Oximetry 94 07/20/22 07:02 Oxygen Delivery Method Room Air 07/20/22 07:02 Oxygen Flow Rate 0 07/20/22 07:02 Pain Level 0 07/20/22 07:02 Comment vitals entered wrong pt 07/15/22 02:50 Intake & Output 07/19/22 07/19/22 07/20/22 11:59 23:59 11:59 Intake Total 1431.25 / 3021.25 1440 / 3021.25 1390 / 1390 Output Total 550 / 550 450 / 450 Balance 881.25 / 2471.25 1440 / 2471.25 940 / 940 Intake: IV 1191.25 / 2541.25 1200 / 2541.25 1150 / 1150 Oral 240 / 480 240 / 480 240 / 240 Output: Urine 550 / 550 450 / 450 Other: Urine Color Light Ashanti Yellow Urine Appearance Clear Clear Urine Odor Normal Comment pt was dry when I checked her at this time, per nurse pt voided on commode with student today Stool Size Small Small Stool Characteristics Liquid Formed Voiding Methods Bedside Commode Bedside Commode Data Completed and Pending Labs on day of discharge: Labs from last 24 hours 07/20/22 07/20/22 07/15/22 06:30 06:30 07:30 WBC 7.92 RBC 3.37 L Hgb 10.3 L Hct 31.5 L MCV 94 MCH 30.6 MCHC 32.7 RDW 14.8 H Plt Count 203 MPV 10.9 Immature Gran % 0.4 Neutrophils % 65.4 Lymphocytes % 29.3 Monocytes % 4.7 Eosinophils % 0.1 Basophils % 0.1 Nucleated RBC % 0.0 Absolute Neutrophils 5.18 Absolute Lymphocytes 2.32 Absolute Monocytes 0.37 Absolute Eosinophils 0.01 Absolute Basophils 0.01 Sodium 145 Potassium 3.1 L Chloride 110 H Carbon Dioxide 27.6 Anion Gap 7.4 BUN 14 Creatinine 0.5 L Est GFR (CKD-EPI 2020) 98.36 Glucose 99 Calcium 8.2 L Magnesium 2.1 C-Reactive Protein 0.34 H Cortisol 13 Preliminary micro results at discharge 07/16/22 16:55 Blood Culture - Preliminary Blood NO GROWTH 72 HOURS PFSH All Active Problems (Updated 07/17/22 @ 15:26 by Aurora Reza NP) Hypomagnesemia (Acute) Hypokalemia (Acute) Hypoglycemia (Acute) Extrapyramidal and movement disorder (Chronic) Impulsiveness (Acute) Moderate bipolar disorder (Acute) Severe dementia (Acute) Discharge planning issues (Acute) DVT prophylaxis (Acute) Cellulitis of submandibular region (Acute) Hypernatremia (Acute) Medical History (Updated 07/17/22 @ 15:26 by Aurora Reza NP) Allergic rhinitis Anemia COPD (chronic obstructive pulmonary disease) Dementia Dental caries GERD (gastroesophageal reflux disease) Hyperlipidemia Insomnia Major depressive disorder Muscle weakness Perioral dermatitis Primary hypertension Repeated falls Social History Smoking/Tobacco Use Status: Former Tobacco Use Smoking risk assessment performed?: Yes Alcohol Intake: never Drug use: Never Substance use type: does not use Do you feel safe at home: Yes Do you feel safe in your relationship?: Yes Time Spent with Patient Time Spent with Patient: 45-69 minutes Time was spent: preparing to see the patient(eg.review tests), obtaining and/or reviewing separately otained hiistory, ordering medications,tests, procedures, referring, communicating with other health care transition coordinator, indepentently interpreting results and care coordination
[2022-07-20] MEDS: Potassium Chloride Liquid 20 MEQ PKT 40 MEQ PO (10:24)
--- NOTE | 2022-07-20 12:01 | PDOC.CMDIS ---
- If Service Date Differs Date of service: 07/20/22 Time of Service: 12:01 LACE Index Scoring Tool - Questions: Length of Stay (in days): 7 - 13 Acuity (Admit via E.D.?): Yes E.D. Visits: 1 - Answers: Total Score: 9 Risk of Readmission: Low Risk Care Management Discharge Reason for Hospitalization: submandibular cellulitis Discharge Plan: Aleida will return to [facility]. She will follow up with facility provider and plan of care and transport via facility w/c van. Patient/Family Education Needs: Review of discharge instructions, follow up plan, activity and Ask Me Three Services Needed at Discharge: Intermediate Facility
[2022-07-20] MEDS: Glucose Oral Gel 15 GM/37.5 GM TUBE PO (13:01)
--- NOTE | 2022-07-20 14:09 | PDOC.CMPRO ---
- If Service Date Differs Date of service: 07/20/22 Time of Service: 14:09 Care Management Progress Note S/O:Aleida was scheduled to return to [facility] today at 1:00 pm however her blood sugar dropped down to 47. The discharge has been cancelled and a workup is in progress to determine the cause of her hypoglycemia. Otherwise, Aleida remains stable clinically and is not symptomatic with the hypoglycemia. After eating custard and 2 bites of chicken salad, Aleida's blood sugar returned to normal limits (98). A: Aleida is a 76 year old woman admitted on 07/13/22 with cellulitis P:Anticipate Aleida will return to [facility] when medically cleared by provider. She will follow up with facility provider and plan of care and transport via EMS vs w/c van. CM to follow and support discharge needs.
[2022-07-20 15:11] VITALS: BP 115/70; PULSE 60; RESP 17; TEMP 36.6; O2SAT 94
[2022-07-20] MEDS: Amoxicillin 875/Clav. 125 TAB PO (19:34)
[2022-07-20 20:03] VITALS: BP 108/61; PULSE 70; RESP 18; TEMP 36.4; O2SAT 94
[2022-07-20] MEDS: Atorvastatin 10 MG TAB PO (21:26)
[2022-07-20] MEDS: clonazePAM 1 MG TAB PO (21:26)
[2022-07-20] MEDS: traZODone 50 MG TAB PO (21:26)
[2022-07-20 23:58] VITALS: BP 125/79; PULSE 59; RESP 18; TEMP 36.1; O2SAT 99
[2022-07-21 02:59] VITALS: BP 125/75; PULSE 58; RESP 18; TEMP 36.5; O2SAT 94
[2022-07-21 09:11] LABS: Anion Gap 4.7 mmol/L (3-11); BUN 16 mg/dL (7-18); CO2 28.3 mmol/L (21.0-32.0); CREATININE 0.5 mg/dL (0.55-1.02); Calcium 8.2 mg/dL (8.5-10.1); Chloride 112 mmol/L (98-107); Estimated GFR 98.36 (mL/min/1.73m2); Glucose 68 mg/dL (74-106); Potassium 3.4 mmol/L (3.5-5.1); Sodium 145 mmol/L (136-145)
[2022-07-21] MEDS: Enoxaparin 40 MG/0.4 ML SYR SC (09:29)
[2022-07-21] MEDS: Amoxicillin 875/Clav. 125 TAB PO (09:29)
[2022-07-21] MEDS: Benztropine 1 MG TAB PO (09:29)
[2022-07-21] MEDS: buPROPion-CR 150 MG TABCR PO (09:30)
[2022-07-21] MEDS: Senna TAB 2 TAB PO (09:30)
[2022-07-21] MEDS: Omeprazole 20 MG CAPCR PO (09:30)
[2022-07-21] MEDS: Divalproex 125 MG SPRINKLE PO (09:30)
[2022-07-21] MEDS: Citalopram 20 MG TAB PO (09:30)
[2022-07-21] MEDS: Aspirin 81 MG CHEW PO (09:30)
[2022-07-21] MEDS: Magnesium Oxide 400 MG TAB PO (09:30)
--- NOTE | 2022-07-21 10:41 | PDOC.CMDIS ---
- If Service Date Differs Date of service: 07/21/22 Time of Service: 10:41 LACE Index Scoring Tool - Questions: Length of Stay (in days): 7 - 13 Acuity (Admit via E.D.?): Yes E.D. Visits: 1 - Answers: Total Score: 9 Risk of Readmission: Low Risk Care Management Discharge Reason for Hospitalization: submandibular cellulitis Discharge Plan: Aleida will return to [facility] where she resides. She will follow up with facility provider and plan of care and transport via facility w/c van. Patient/Family Education Needs: Review of discharge instructions, follow up plan, activity and Ask Me Three Services Needed at Discharge: Long-Term Facility
[2022-07-21 11:19] LABS: Source Nasal/Nares
[2022-07-21 11:50] LABS: COVID-19 PCR Negative (Negative)
== END 2022-07-21 12:53 | disposition skilled nursing facility (03) | DRG 158 ==
LOC: ER 20:39 → MS 21:16 → ICU 23:50 → MS 07-14 14:49
PROVIDERS: Internal Medicine; Nurse Practitioner Acute Care; Nurse Practitioner Family; Admitting Provider Family Medicine; Emergency Provider Student in an Organized Health Care Education/Training Program; PCP Family Medicine; Visit Provider Family Medicine
DX: K12.2 Cellulitis and abscess of mouth (principal); E27.40 Unspecified adrenocortical insufficiency; E87.0 Hyperosmolality and hypernatremia; F33.9 Major depressive disorder, recurrent, unspecified; G25.9 Extrapyramidal and movement disorder, unspecified; E83.42 Hypomagnesemia; E87.6 Hypokalemia; K11.21 Acute sialoadenitis; Z87.891 Personal history of nicotine dependence; E86.0 Dehydration; F03.C0 Unspecified dementia, severe, without behavioral disturbance, psychotic disturbance, mood disturbance, and anxiety; J44.9 Chronic obstructive pulmonary disease, unspecified; K21.9 Gastro-esophageal reflux disease without esophagitis; I10 Essential (primary) hypertension; R29.6 Repeated falls; E78.5 Hyperlipidemia, unspecified; D64.9 Anemia, unspecified; G47.00 Insomnia, unspecified; M51.36 Other intervertebral disc degeneration, lumbar region; J30.9 Allergic rhinitis, unspecified; G47.33 Obstructive sleep apnea (adult) (pediatric); K02.9 Dental caries, unspecified; E16.2 Hypoglycemia, unspecified; R59.0 Localized enlarged lymph nodes
CPT/HCPCS: 36415; 70491; 80048; 80053; 82533; 84145; 87040; 87081; 87635; 92610; 96361; 96365; 96375; 99285; J1650; 70490; 71046; 80202; 81003; 81015; 83036; 83735; 85025; 86140; 93005; 93010; 99222; 99232; 99233; 99239; J1720; J2250; J2543; J3480; J3490; J7060

== ENCOUNTER 2022-08-12 11:41 | Inpatient (IN) | payer MEDICARE, MEDICAID, SELFPAY ==
[2022-08-12] VITALS (42 sets, daily range): BP systolic 97–154; BP diastolic 44–124; PULSE 57–113; RESP 12–29; TEMP 35.6–36.5; O2SAT 91–96
--- NOTE | 2022-08-12 12:15 | DI.RAD_ITS ---
Exam(s) XR PORTABLE CHEST AP EXAM: XR PORTABLE CHEST AP CLINICAL HISTORY: cough TECHNIQUE: 2D digital imaging was performed. COMPARISON: CR XR CHEST 2V PA LATERAL from 07/17/2022 FINDINGS: Exam is limited by poor pulmonary inflation. There is artifact overlying the right lower portion of the image. LUNGS: Infiltrate noted at the right lung base. Small right effusion not excluded. Question of mild ly increased densities, infiltrate versus atelectasis, at the left lung base. Underlying fibrotic ch anges. HEART: Normal size. AORTA: Normal diameter. BONES: Degenerative changes in the spine. Soft tissues: Unremarkable. IMPRESSION: Right lower lobe pneumonia. Question of mild atelectasis versus mild infiltrate left lower lobe. DATA REPOSITORY: RADIATION DOSE DELIVERED:
[2022-08-12 13:42] LABS: COVID-19 PCR Negative (Negative); Influenza A PCR Negative (Negative); Influenza B PCR Negative (Negative); RSV PCR Negative (Negative); Source Nasopharynx
--- NOTE | 2022-08-12 13:45 | W.ED.GENAD ---
Discharge Plan Disposition Patient Disposition: Admit to [facility] Discharge Details Clinical Impression: Hypernatremia, Extrapyramidal and movement disorder, Hypoglycemia, Pneumonia Admit Date/Time: 08/12/22 16:27 Admit Provider: Richardson Walters Attending Provider: Richardson Walters Primary Care Provider: Vaughn Navarro ED Provider: Alberto Russell Discharge Data Discharge Date/Time-TO BE ENTERED AT DEPARTURE: 08/12/22 19:20 Medical Decision Making Patient presenting to the emergency department for chief complaint of malaise and hypoxia. Patient sent via ambulance by [facility] for evaluation due to noting some low oxygen yesterday and today. They also state some behavioral changes and patient being more sleepy/having more malaise. Patient has significant past medical history for chronic extraparametal movement disorder, bipolar disorder, severe dementia and hypernatremia along with other electrolyte abnormalities. Review of systems is difficult patient states she does not feel well but does not elaborate. Patient denies any pain or discomfort though. Patient does have abnormal movements as per history. There is diminished lung sounds in right lower lung otherwise exam is nonfocal. social staff worker did check blood glucose at time of arrival and patient was noted to have hypoglycemia with blood sugar in the 40s so orange juice was given immediately. We will plan on checking patient's labs, chest x-ray, and CT imaging of the head. Reviewed patient's labs and CBC is overall nondiagnostic without severe anemia or leukocytosis noted, VBG does show a pH in normal range but there is elevated PCO2, bicarb, and total CO2. Sodium is critically high at 168, chloride and carbon dioxide are both also elevated with anion gap of 1.6 and BUN of 50. Magnesium also noted as high at 2.6. Albumin low at 2.1. Patient is negative for COVID flu and RSV. Review of radiological imaging and chest x-ray does show concerning findings for right lower lung opacity and possible pleural effusion. We will start patient on antibiotics along with IV fluids pending CT imaging results of the head. Spoke with hospitalist who agreed to admit patient for hypernatremia and pneumonia. Imaging Data Radiologic Study: Attestation: I personally reviewed and interpreted this imaging study as follows: Imaging: X-Ray Radiologist's impression: Exam(s) PROCEDURE INFORMATION: Exam: XR Chest Exam date and time: 08/12/2022 1:35 PM Age: 76 years old Clinical indication: Other: Cough TECHNIQUE: Imaging protocol: Radiologic exam of the chest. Views: 1 view. COMPARISON: CR XR CHEST 2V PA LATERAL 07/17/2022 12:00 PM FINDINGS: Lungs: Opacity in the right base may represent atelectasis or pneumonia.. Pleural spaces: There may be mild right pleural effusion. Heart/Mediastinum: Unremarkable. No cardiomegaly. Bones/joints: Unremarkable. IMPRESSION: 1. Opacity in the right base may represent atelectasis or pneumonia.. 2. There may be mild right pleural effusion. Lab Data Lab results reviewed: Yes I reviewed the patient's lab results. HPI General Mode of arrival: EMS. Date/Time Provider Initiated Documentation: 08/12/22 11:53. Limitations to Documentation: no limitations. Information obtained by: patient and RN notes reviewed. History of Present Illness 76 year old F presents to the emergency department with the chief complaint of Hypoxia, malaise, Quality is described as other (Patient denies any pain or discomfort), Patient started experiencing this day(s) (2) and it has been constant. No relieving factors improve symptom(s), No exacerbating factors reported . Patient notes no other symptoms.. Patient did receive the following treatments prior to arrival, none Related Data Home Medications Medication Instructions Recorded Confirmed acetaminophen 325 mg tablet 650 mg PO Q4H PRN 07/13/22 08/12/22 aspirin 81 mg chewable tablet 81 mg PO DAILY 07/13/22 08/12/22 atorvastatin 10 mg tablet 10 mg PO QHS 07/13/22 08/12/22 benztropine 1 mg tablet 1 mg PO BID 07/13/22 08/12/22 bisacodyl 10 mg rectal suppository 10 mg [place] DAILY PRN 07/13/22 08/12/22 (Dulcolax (bisacodyl)) bupropion HCl 150 mg tablet,12 hr 150 mg PO DAILY 07/13/22 08/12/22 sustained-release cholecalciferol (vitamin D3) 25 25 mcg PO DAILY 07/13/22 08/12/22 mcg (1,000 unit) capsule (Vitamin D3) citalopram 20 mg tablet 20 mg PO DAILY 07/13/22 08/12/22 clonazepam 0.5 mg tablet 1 mg PO Q12H PRN PRN 07/13/22 08/12/22 clonazepam 1 mg tablet 1 mg PO QHS 07/13/22 08/12/22 divalproex 125 mg capsule,delayed 125 mg PO BID 07/13/22 08/12/22 release sprinkle (Depakote Sprinkles) ferrous sulfate 325 mg (65 mg 325 mg PO DAILY 07/13/22 08/12/22 iron) tablet magnesium hydroxide 400 mg/5 mL 30 ml PO DAILY PRN 07/13/22 08/12/22 oral suspension (Milk of Magnesia) omeprazole 20 mg tablet,delayed 20 mg PO DAILY 07/13/22 08/12/22 release polyethylene glycol 3350 17 17 g PO DAILY PRN 07/13/22 08/12/22 gram/dose oral powder (Miralax) sennosides 8.6 mg tablet (Senokot) 17.2 mg PO BID 07/13/22 08/12/22 trazodone 50 mg tablet 50 mg PO QHS 07/13/22 08/12/22 magnesium chloride 64 mg 64 mg PO BID #30 tabs 07/17/22 08/12/22 (magnesium chloride) tablet,delayed release (Mag 64) potassium chloride 20 mEq 20 meq PO DAILY 08/12/22 08/12/22 tablet,extended release Previous Rx's Medication Instructions Recorded magnesium chloride 64 mg 64 mg PO BID #30 tabs 07/17/22 (magnesium chloride) tablet,delayed release (Mag 64) Allergies Allergy/AdvReac Type Severity Reaction Status Date / Time peas Allergy Unknown Unverified 08/12/22 16:45 ropinirole Allergy Unknown Unverified 08/12/22 16:45 General Stated Complaint: GenMedical THERESE: 3 Review of Systems Constitutional Constitutional: Denies chills, Denies fever(s) and Denies headache(s) ENT Ears, Nose, Mouth, and Throat: Denies headache(s), Denies nasal congestion and Denies sore throat Cardiovascular Cardiovascular: Denies chest pain and Denies dyspnea Respiratory Respiratory: Reports change in phlegm color, Reports cough and Denies dyspnea Gastrointestinal Gastrointestinal: Denies diarrhea, Denies nausea and Denies vomiting Neurologic Neurologic: Denies abnormal movements, Reports behavioral changes and Denies headache(s) Psychiatric Psychiatric: Reports behavioral changes PFSH All Active Problems (Updated 08/12/22 @ 15:43 by Alberto Russell NP) Pneumonia (Acute) Hypomagnesemia (Acute) Hypokalemia (Acute) Hypoglycemia (Acute) Extrapyramidal and movement disorder (Chronic) Impulsiveness (Acute) Moderate bipolar disorder (Acute) Severe dementia (Acute) Cellulitis of submandibular region (Acute) Hypernatremia (Acute) Medical History Allergic rhinitis Anemia COPD (chronic obstructive pulmonary disease) Dementia Dental caries GERD (gastroesophageal reflux disease) Hyperlipidemia Insomnia Major depressive disorder Muscle weakness Perioral dermatitis Primary hypertension Repeated falls Social History Smoking/Tobacco Use Status: Former Tobacco Use Smoking risk assessment performed?: Yes Alcohol Intake: never Drug use: Never Substance use type: does not use Do you feel safe at home: Yes Do you feel safe in your relationship?: Yes Exam Const General: cooperative, no acute distress, frail appearing and ill appearing chronically Nutritional Appearance: thin Orientation: alert and awake HENMT Head: atraumatic General nose exam: external nose normal Mouth: oral mucosa abnormal (dry) Eyes General: appearance normal, both eyes and all related structures Resp Effort & Inspection: normal respiratory effort, cough Quality of cough: dry and no respiratory distress Auscultation: clear to auscultation bilaterally and diminished lung sounds on the right in the lower lung pete Cardio Rate: regular rate Rhythm: regular rhythm Heart Sounds: S1 normal and S2 normal Pulses: normal peripheral pulses GI Palpation: soft and nontender Skin General skin exam: no rashes or lesions noted Neuro General: patient alert, patient awake and moves all extremities Course Vital Signs Vital signs: Vital Signs Temperature 35.6 C L 08/12/22 11:48 Pulse 68 08/12/22 11:48 Respiratory Rate 22 08/12/22 11:48 Blood Pressure 126/45 L 08/12/22 11:48 Pulse Oximetry 96 08/12/22 11:48 Temperature 35.6 C L 08/12/22 11:48 Temperature Source Tympanic 08/12/22 11:48 Pulse 68 08/12/22 11:48 Respiratory Rate 22 08/12/22 11:48 Blood Pressure 126/45 L 08/12/22 11:48 Blood Pressure Position Supine 08/12/22 11:48 Pulse Oximetry 96 08/12/22 11:48 Oxygen Delivery Method Room Air 08/12/22 11:48 Oxygen Flow Rate 0 08/12/22 11:48 Lab/Test Results Lab/Test Results: Laboratory Tests Range/Units 08/12/22 13:00 COVID-19 Source Nasopharynx SARS-CoV-2 (PCR) (Negative) Negative Influenza Type A (PCR) (Negative) Negative Influenza Type B (PCR) (Negative) Negative RSV (PCR) (Negative) Negative
--- NOTE | 2022-08-12 14:23 | DI.VRAD_ITS ---
PROCEDURE INFORMATION: Exam: XR Chest Exam date and time: 08/12/2022 1:35 PM Age: 76 years old Clinical indication: Other: Cough TECHNIQUE: Imaging protocol: Radiologic exam of the chest. Views: 1 view. COMPARISON: CR XR CHEST 2V PA LATERAL 07/17/2022 12:00 PM FINDINGS: Lungs: Opacity in the right base may represent atelectasis or pneumonia.. Pleural spaces: There may be mild right pleural effusion. Heart/Mediastinum: Unremarkable. No cardiomegaly. Bones/joints: Unremarkable. IMPRESSION: 1. Opacity in the right base may represent atelectasis or pneumonia.. 2. There may be mild right pleural effusion. Dictated and Authenticated by: Umu Saini MD. Ordering:TEJA Dominguez MD
[2022-08-12 14:25] LABS: BE (Venous) 10 mmol/L (-2-3); HCO3 (Venous) 35 mmol/L (23-28); O2 Sat (Venous) 52 %; TCO2 (Venous) 32 mmol/L (24-29); pCO2 (Venous) 56 mmHg (41-51); pO2 (Venous) 29 mmHg
[2022-08-12 14:26] LABS: Abs Immature Grans 0.05 10^3/uL (0.0-0.06); Absolute Basophil Count 0.03 10^3/uL (0.0-0.2); Absolute Eosinophil Count 0.01 10^3/uL (0.0-0.7); Absolute Lymphocyte Count 1.34 10^3/uL (1.2-3.4); Absolute Monocyte Count 0.24 10^3/uL (0.1-0.8); Absolute Neutrophil Count 8.32 10^3/uL (1.2-6.7); Basophils % 0.3; Eosinophils % 0.1; HCT 40.5 % (36.0-46.0); HGB 11.5 g/dL (11.2-15.7); Immature Grans % 0.5; Lymphocytes % 13.4; MCHC 28.4 % (32.0-36.0); MCV 106 fL (80-95); MPV 10.4 fL (8.0-11.0); Monocytes % 2.4; Neutrophils % 83.3; Platelet Count 277 10^3/uL (130-400); RBC 3.83 10^6/uL (3.93-5.22); RDW 17.1 % (11.7-14.6); RDW-SD 67.2 fL; WBC 9.99 10^3/uL (4.4-10.8)
[2022-08-12 14:42] LABS: ALT 20 U/L (14-59); AST 26 U/L (15-37); Albumin 2.1 g/dL (3.4-5.0); Alkaline Phosphatase 87 U/L (46-116); BUN 50 mg/dL (7-18); Bilirubin, Total 0.4 mg/dL (0.2-1.0); CO2 35.4 mmol/L (21.0-32.0); CREATININE 0.7 mg/dL (0.55-1.02); Calcium 9.1 mg/dL (8.5-10.1); Glucose 80 mg/dL (74-106); Magnesium 2.6 mg/dL (1.8-2.4); Total Protein 6.4 g/dL (6.4-8.2)
[2022-08-12 14:53] LABS: Chloride 131 mmol/L (98-107); Potassium 3.8 mmol/L (3.5-5.1)
[2022-08-12 14:55] LABS: Anion Gap 1.6 mmol/L (3-11); Sodium 168 mmol/L (136-145)
--- NOTE | 2022-08-12 15:00 | DI.CT_ITS ---
Exam(s) CT HEAD WO EXAM: CT HEAD WO CLINICAL HISTORY: Change in mental status. TECHNIQUE: Imaging Protocol: Axial computed tomography images with coronal and sagittal reformatted images were created and reviewed COMPARISON: No exams were available for comparison FINDINGS: Ventricles and Extra axial spaces: Prominent CSF spaces, likely secondary to atrophy. Possible sub b ilateral symmetric small subdural hygromas. Hemorrhage: None. Cerebral parenchyma: Atrophy and white matter changes mild small vessel disease. Midline shift: None. Brainstem/Cerebellum: Normal. Calvarium: Normal. Visualized Paranasal sinuses/Mastoids: Air-fluid levels in the maxillary sinuses. Significant opacif ication of the ethmoid sinuses and right sphenoid sinus. No bony destruction. Soft Tissues: Unremarkable. IMPRESSION: Severe sinus disease. No acute intracranial process. RADIATION DOSE DELIVERED: 707.78mGy.cm Total DLP DATA REPOSITORY: All CT scans at this facility are submitted to the National Radiology Data Registry (NRDR) Dose Index Registry (DIR) with the [employer] (ACR). RADIATION OPTIMIZATION: All CT scans at this facility use at least one of these dose optimization te chniques: automated exposure control; mA and/or kV adjustment per patient size (includes targeted exa ms where dose is matched to clinical indication); or iterative reconstruction.
[2022-08-12] MEDS: Normal Saline 1,000 ML 1000 ML IV (15:14)
[2022-08-12] MEDS: cefTRIAXone 1 GM/50 ML BAG IVPB (16:30)
[2022-08-12] MEDS: LORazepam 2 MG/ML VIAL 0.5 MG IVP (16:56)
[2022-08-12] MEDS: Normal Saline 1,000 ML 150 ML IV (18:05)
[2022-08-12] MEDS: AZITHROMYCIN 500 MG in Normal Saline 250 ML 250 MG IVPB (18:05)
--- NOTE | 2022-08-12 18:15 | TELEP.MEDR_ITS ---
Date of service: 08/12/22 Time of Service: 18:16 Telepharmacy Home Med Rec Allergies Allergies: peas Allergy (Unknown, Unverified 08/12/22 16:45) ropinirole Allergy (Unknown, Unverified 08/12/22 16:45) Interview Person Interviewed: * Facility MAR Quality Quality of Interview/Accuracy of Medication List: Excellent Sources Sources used to compile medication list: As It Is Medication List, PCP/Specialist List and MAR Changes made to Home Medication List: ADDITIONS: * none DELETIONS: * prednisone CHANGES: * KCL 20 mEq PO daily (changed from 40 mEq Po daily) * Clonazepam 0.5mg Po Q12h PRN (changed from 0.5 mg Po Q4h PRn) Recommended Changes Attestation: The home medication list is now updated to the best of my knowledge and is ready to be reconciled by the provider. Please contact the TelePharmacy Medication Reconciliation Pharmacist at for any questions.
--- NOTE | 2022-08-12 18:15 | TELEP.MEDREC ---
Date of service: 08/12/22 Time of Service: 18:16 Telepharmacy Home Med Rec Allergies Allergies: peas Allergy (Unknown, Unverified 08/12/22 16:45) ropinirole Allergy (Unknown, Unverified 08/12/22 16:45) Interview Person Interviewed: Facility MAR Quality Quality of Interview/Accuracy of Medication List: Excellent Sources Sources used to compile medication list: [employer] Medication List, PCP/Specialist List and MAR Changes made to Home Medication List: ADDITIONS: none DELETIONS: prednisone CHANGES: KCL 20 mEq PO daily (changed from 40 mEq Po daily) Clonazepam 0.5mg Po Q12h PRN (changed from 0.5 mg Po Q4h PRn) Recommended Changes Attestation: The home medication list is now updated to the best of my knowledge and is ready to be reconciled by the provider. Please contact the TelePharmacy Medication Reconciliation Pharmacist at for any questions.
--- NOTE | 2022-08-12 18:35 | W.PM.HP.N ---
Date of service: 08/12/22 Time of Service: 18:35 Assessment and Plan Assessment and plan (1) Extrapyramidal and movement disorder: Status: Chronic Assessment and plan: Continue clonazepam (2) Hypoglycemia: Status: Acute Assessment and plan: stable at this time; A1C 4.8 40 mg/dl in the ED - orange juice given with glucose rising to >80 Fingersticks AC HS and PRN Insta glucose. IV D5 @ 125 ml/h (3) Hypernatremia: Status: Acute Assessment and plan: 168 - up to 174 IV D5 @ 125 ml/h to replace water losses, she is very frail ,and lives at a facility, dementia. Prior hospitalization sodium levels 140-150s Serial repeat levels every 4 h for 24h and adjust accordingly. Five percent dextrose in water, intravenously, at a rate of 3 to 6 mL/kg/hour Once the serum sodium concentration has reached 145 mEq/L, the rate of infusion is reduced to 1 mL/kg/hour - 40 ml /h and continue until a normal serum sodium (140 mEq/L) is restored. (4) Pneumonia: Status: Acute Assessment and plan: Abx IV Ceftriaxone and doxycycline BC pending (5) Severe dementia: Status: Acute Assessment and plan: Safety measures, (6) DVT prophylaxis: Status: Deleted Assessment and plan: Enoxaparin 40 mg sq daily (7) Discharge planning issues: Status: Deleted Assessment and plan: Return to [facility] H & R on oral abx when stable and electrolytes normalize, recommend H&R do BID glucose levels - plan for discharge Discussed with Dr Walters History of Present Illness History of Present Illness Chief Complaint: Hypoxia Narrative: This is a 76 year old patient presenting to the emergency department, coming from the [facility] for reported by staff chief complaint of malaise and hypoxia.? Patient sent via ambulance by [facility] for evaluation due to noting some low oxygen yesterday and today.? They also stated some behavioral changes and patient being more sleepy/having more malaise.? Patient has significant past medical history for chronic extraparametal movement disorder, bipolar disorder, severe dementia and hypernatremia along with other electrolyte abnormalities.? Review of systems is difficult patient states she does not feel well but does not elaborate.? Patient denied any pain or discomfort though.? Patient does have abnormal movements as per history.? In ED patient has hypoglycemia with blood sugar in the 40s so orange juice was given immediately.?Reviewed patient's labs and CBC is overall nondiagnostic without severe anemia or leukocytosis noted, VBG does show a pH in normal range but there is elevated PCO2, bicarb, and total CO2.? Sodium is critically high at 168, chloride and carbon dioxide were both also elevated with anion gap of 1.6 and BUN of 50.? Magnesium also noted as high at 2.6.? Albumin low at 2.1.? Patient is negative for COVID flu and RSV.? Review of radiological imaging and chest x-ray showed concerning findings for right lower lung opacity and possible pleural effusion.? She was started on antibiotics along with IV fluids. The CT of her head was unchanged. She is admitted to the medical floor for further treatment of her pneumonia and electrolyte imbalance. She is a DNI, but according to [facility] and family is not DNR. Discussed with Dr Walters Review of Systems Unobtainable due to mental condition (Dementia) PFSH All Active Problems (Updated 08/12/22 @ 15:43 by Alberto Russell NP) Pneumonia (Acute) Hypomagnesemia (Acute) Hypokalemia (Acute) Hypoglycemia (Acute) Extrapyramidal and movement disorder (Chronic) Impulsiveness (Acute) Moderate bipolar disorder (Acute) Severe dementia (Acute) Cellulitis of submandibular region (Acute) Hypernatremia (Acute) Medical History Allergic rhinitis Anemia COPD (chronic obstructive pulmonary disease) Dementia Dental caries GERD (gastroesophageal reflux disease) Hyperlipidemia Insomnia Major depressive disorder Muscle weakness Perioral dermatitis Primary hypertension Repeated falls Social History Smoking/Tobacco Use Status: Former Tobacco Use Smoking risk assessment performed?: Yes Alcohol Intake: never Drug use: Never Substance use type: does not use Do you feel safe at home: Yes Do you feel safe in your relationship?: Yes Meds Allergies and Home Medications Allergies Allergy/AdvReac Type Severity Reaction Status Date / Time peas Allergy Unknown Unverified 08/12/22 16:45 ropinirole Allergy Unknown Unverified 08/12/22 16:45 Home Medications Medication Instructions Recorded Confirmed Type acetaminophen 325 mg tablet 650 mg PO Q4H PRN 07/13/22 08/12/22 History aspirin 81 mg chewable tablet 81 mg PO DAILY 07/13/22 08/12/22 History atorvastatin 10 mg tablet 10 mg PO QHS 07/13/22 08/12/22 History benztropine 1 mg tablet 1 mg PO BID 07/13/22 08/12/22 History bisacodyl 10 mg rectal suppository 10 mg DC DAILY PRN 07/13/22 08/12/22 History (Dulcolax (bisacodyl)) bupropion HCl 150 mg tablet,12 hr 150 mg PO DAILY 07/13/22 08/12/22 History sustained-release cholecalciferol (vitamin D3) 25 25 mcg PO DAILY 07/13/22 08/12/22 History mcg (1,000 unit) capsule (Vitamin D3) citalopram 20 mg tablet 20 mg PO DAILY 07/13/22 08/12/22 History clonazepam 0.5 mg tablet 1 mg PO Q12H PRN PRN 07/13/22 08/12/22 History clonazepam 1 mg tablet 1 mg PO QHS 07/13/22 08/12/22 History divalproex 125 mg capsule,delayed 125 mg PO BID 07/13/22 08/12/22 History release sprinkle (Depakote Sprinkles) ferrous sulfate 325 mg (65 mg 325 mg PO DAILY 07/13/22 08/12/22 History iron) tablet magnesium hydroxide 400 mg/5 mL 30 ml PO DAILY PRN 07/13/22 08/12/22 History oral suspension (Milk of Magnesia) omeprazole 20 mg tablet,delayed 20 mg PO DAILY 07/13/22 08/12/22 History release polyethylene glycol 3350 17 17 g PO DAILY PRN 07/13/22 08/12/22 History gram/dose oral powder (Miralax) sennosides 8.6 mg tablet (Senokot) 17.2 mg PO BID 07/13/22 08/12/22 History trazodone 50 mg tablet 50 mg PO QHS 07/13/22 08/12/22 History magnesium chloride 64 mg 64 mg PO BID #30 tabs 07/17/22 08/12/22 Rx (magnesium chloride) tablet,delayed release (Mag 64) potassium chloride 20 mEq 20 meq PO DAILY 08/12/22 08/12/22 History tablet,extended release Exam Const General: cooperative, no acute distress, frail appearing and ill appearing chronically Nutritional Appearance: thin Orientation: alert and awake HENKY Head: atraumatic General nose exam: external nose normal Mouth: oral mucosa abnormal (dry) Eyes General: appearance normal, both eyes and all related structures Resp Effort & Inspection: normal respiratory effort, cough Quality of cough: dry and no respiratory distress Auscultation: clear to auscultation bilaterally and diminished lung sounds on the right in the lower lung pete Cardio Rate: regular rate Rhythm: regular rhythm Heart Sounds: S1 normal and S2 normal Pulses: normal peripheral pulses GI Palpation: soft and nontender Skin General skin exam: no rashes or lesions noted Neuro General: patient alert, patient awake and moves all extremities Results Labs 08/12/22 14:20 08/12/22 14:20 Labs: Laboratory Results - last 24 hr 08/12/22 08/12/22 08/12/22 13:00 14:20 14:20 WBC 9.99 RBC 3.83 L Hgb 11.5 Hct 40.5 MCV 106 H MCH 30.0 MCHC 28.4 L RDW 17.1 H Plt Count 277 MPV 10.4 Immature Gran % 0.5 Neutrophils % 83.3 Lymphocytes % 13.4 Monocytes % 2.4 Eosinophils % 0.1 Basophils % 0.3 Nucleated RBC % 0.0 Absolute Neutrophils 8.32 H Absolute Lymphocytes 1.34 Absolute Monocytes 0.24 Absolute Eosinophils 0.01 Absolute Basophils 0.03 VBG pH VBG pCO2 VBG pO2 VBG HCO3 VBG Total CO2 VBG O2 Saturation VBG Base Excess Sodium 168 H* Potassium 3.8 Chloride 131 H Carbon Dioxide 35.4 H Anion Gap 1.6 L BUN 50 H Creatinine 0.7 Est GFR (CKD-EPI 2020) 90.70 Glucose 80 Calcium 9.1 Magnesium 2.6 H Total Bilirubin 0.4 AST 26 ALT 20 Alkaline Phosphatase 87 Total Protein 6.4 Albumin 2.1 L COVID-19 Source Nasopharynx SARS-CoV-2 (PCR) Negative Influenza Type A (PCR) Negative Influenza Type B (PCR) Negative RSV (PCR) Negative 08/12/22 14:20 WBC RBC Hgb Hct MCV MCH MCHC RDW Plt Count MPV Immature Gran % Neutrophils % Lymphocytes % Monocytes % Eosinophils % Basophils % Nucleated RBC % Absolute Neutrophils Absolute Lymphocytes Absolute Monocytes Absolute Eosinophils Absolute Basophils VBG pH 7.40 VBG pCO2 56 H VBG pO2 29 VBG HCO3 35 H VBG Total CO2 32 H VBG O2 Saturation 52 VBG Base Excess 10 H Sodium Potassium Chloride Carbon Dioxide Anion Gap BUN Creatinine Est GFR (CKD-EPI 2020) Glucose Calcium Magnesium Total Bilirubin AST ALT Alkaline Phosphatase Total Protein Albumin COVID-19 Source SARS-CoV-2 (PCR) Influenza Type A (PCR) Influenza Type B (PCR) RSV (PCR) Last Vital Signs Temp 35.6 C L 08/12/22 11:48 Pulse 67 08/12/22 17:01 Resp 13 08/12/22 17:15 BP 118/67 08/12/22 17:01 Pulse Ox 96 08/12/22 11:48 Time Spent Time spent with Patient: 55-74 minutes Time was spent: preparing to see the patient(eg.review tests), ordering medications,tests, procedures, referring, communicating with other health lawn care specialist, indepentently interpreting results, counseling the patient and care coordination
[2022-08-12] MEDS: LORazepam 2 MG/ML VIAL 1 MG IVP (19:07)
[2022-08-12] MEDS: Enoxaparin 40 MG/0.4 ML SYR SC (20:24)
[2022-08-12] MEDS: Divalproex 125 MG SPRINKLE PO (21:49)
[2022-08-12] MEDS: traZODone 50 MG TAB PO (21:49)
[2022-08-12] MEDS: clonazePAM 1 MG TAB PO (21:50)
[2022-08-12] MEDS: Senna TAB 2 TAB PO (21:56)
[2022-08-12] MEDS: Magnesium Chloride 64 MG TABCR PO (21:56)
--- NOTE | 2022-08-12 22:07 | DI.VRAD_ITS ---
PROCEDURE INFORMATION: Exam: CT Head Without Contrast Exam date and time: 08/12/2022 9:43 PM Age: 76 years old Clinical indication: Altered mental status/memory loss; Patient HX: Change in mental status TECHNIQUE: Imaging protocol: Computed tomography of the head without contrast. COMPARISON: CT NECK W 07/14/2022 1:46 PM FINDINGS: Brain: No acute intracranial hemorrhage, mass-effect, midline shift, or extra-axial collection is seen. There is symmetric prominence of the extra-axial space overlying the frontal and temporal lobes bilaterally, possibly a result of parenchymal volume loss or possibly representing subdural hygromas. The bhagat white matter differentiation appears preserved. There is mild patchy white matter hypoattenuation, nonspecific but commonly seen as a chronic sequela of small vessel ischemic disease. Cerebral ventricles: The ventricular system and basilar cisterns appear appropriate in size and configuration. Paranasal sinuses: There is patchy mucoperiosteal thickening and fluid throughout the visualized paranasal sinuses. Mastoid air cells: The mastoid air cells appear well-aerated. Auditory system: The middle ear cavities appear clear. Orbital cavities: The globes and intraorbital structures appear grossly intact. Bones/joints: The bony calvarium appears intact. No depressed skull fracture is seen. Soft tissues: There are coarse skin calcifications in the frontal scalp. IMPRESSION: 1. No acute intracranial abnormality seen. 2. Presumed chronic microvascular ischemic change. 3. Symmetric parenchymal volume loss. Symmetric prominence of the extra-axial space overlying the frontal and temporal lobes, possibly a sequela of parenchymal volume loss or possibly representing subdural hygromas. 4. Extensive mucoperiosteal thickening and fluid throughout the visualized paranasal sinuses. Acute sinusitis could have this appearance. Clinical correlation is recommended. Dictated and Authenticated by: Jamaal Guerrero MD. Ordering:TEJA Dominguez MD
[2022-08-13] MEDS: DEXTROSE 5%-0.9% SALINE 1,000 ML 125 ML IV ×2 (01:27→09:39)
[2022-08-13 04:55] VITALS: BP 131/65; PULSE 61; RESP 16; TEMP 36.1; O2SAT 90
[2022-08-13 07:43] VITALS: BP 137/71; PULSE 95; RESP 18; TEMP 36; O2SAT 100
[2022-08-13] MEDS: Potassium Chloride 20 MEQ TABCR 40 MEQ PO (08:05)
[2022-08-13] MEDS: Pantoprazole 40 MG TABCR PO (08:05)
[2022-08-13] MEDS: Ferrous Sulfate 325 MG TAB PO (08:06)
[2022-08-13] MEDS: buPROPion-CR 150 MG TABCR PO (08:06)
[2022-08-13] MEDS: Citalopram 20 MG TAB PO (08:06)
[2022-08-13] MEDS: Magnesium Chloride 64 MG TABCR PO ×2 (08:06→21:33)
[2022-08-13] MEDS: Senna TAB 2 TAB PO ×2 (08:06→21:33)
[2022-08-13] MEDS: predniSONE 20 MG TAB PO (08:06)
[2022-08-13] MEDS: Cholecalciferol (Vitamin D3) 1,000 UNIT TAB 1000 UNITS PO (08:07)
[2022-08-13] MEDS: Divalproex 125 MG SPRINKLE PO ×2 (08:13→21:30)
[2022-08-13 11:24] VITALS: BP 97/53; PULSE 77; RESP 19; TEMP 36; O2SAT 94
[2022-08-13 12:29] LABS: Abs Immature Grans 0.07 10^3/uL (0.0-0.06); Absolute Basophil Count 0.01 10^3/uL (0.0-0.2); Absolute Eosinophil Count 0.01 10^3/uL (0.0-0.7); Absolute Lymphocyte Count 1.38 10^3/uL (1.2-3.4); Absolute Neutrophil Count 9.85 10^3/uL (1.2-6.7); Basophils % 0.1; Eosinophils % 0.1; HCT 39.5 % (36.0-46.0); HGB 11.2 g/dL (11.2-15.7); Immature Grans % 0.6; Lymphocytes % 11.9; MCH 30.6 pg (27.0-33.0); MCHC 28.4 % (32.0-36.0); MCV 108 fL (80-95); MPV 10.7 fL (8.0-11.0); Monocytes % 2.6; Neutrophils % 84.7; Platelet Count 202 10^3/uL (130-400); RBC 3.66 10^6/uL (3.93-5.22); RDW 16.8 % (11.7-14.6); RDW-SD 67.8 fL; WBC 11.63 10^3/uL (4.4-10.8)
[2022-08-13 12:40] LABS: Anion Gap 8.4 mmol/L (3-11); BUN 40 mg/dL (7-18); CO2 27.6 mmol/L (21.0-32.0); CREATININE 0.8 mg/dL (0.55-1.02); Calcium 8.4 mg/dL (8.5-10.1); Chloride 138 mmol/L (98-107); Estimated GFR 77.27 (mL/min/1.73m2); Glucose 190 mg/dL (74-106); Magnesium 2.4 mg/dL (1.8-2.4); Potassium 3.7 mmol/L (3.5-5.1)
[2022-08-13 12:43] LABS: Sodium 174 mmol/L (136-145)
--- NOTE | 2022-08-13 12:44 | INITIAL_ITS ---
- If Service Date Differs Date of service: 08/13/22 Time of Service: 12:45 Care Management Initial Assess REASON FOR HOSPITALIZATION:: Pneumonia PAST MEDICAL HISTORY/PAST SURGICAL HISTORY:: All Active Problems. Pneumonia (Acute). Hypomagnesemia (Acute). Hypokalemia (Acute). Hypoglycemia (Acute). Extrapyramidal and movement disorder (Chronic). Impulsiveness (Acute). Moderate bipolar disorder (Acute). Severe dementia (Acute). Cellulitis of submandibular region (Acute). Hypernatremia (Acute). Medical History. Allergic rhinitis. Anemia. COPD (chronic obstructive pulmonary disease). Dementia. Dental caries. GERD (gastroesophageal reflux disease). Hyperlipidemia. Insomnia. Major depressive disorder. Muscle weakness. Perioral dermatitis. Primary hypertension. Repeated falls PREVIOUS FUNCTIONAL STATUS/SOCIAL/FAMILY SUPPORTS:: Aleida lives at [facility]. She was transferred there from [facility] where she had been since December,. She has one child, a daughter named Estelle tay, who lives in [place] and is her guardian. Aleida has severe dementia and requires care with ADLs and all activities. CURRENT FUNCTIONAL STATUS:: Aleida was lying in bed when CM met with her. Her RN was in the room, and was preparing to change her position. Aleida was sleepy, and did not engage with CM. Per report, she is being treated with antibiotics for her pneumonia. She will return to [facility] once she is medically cleared. CM will continue to follow. ADVANCE DIRECTIVES:: [facility] on file Has patient been provided with info about the portal/API?: Yes Did the patient sign up for the portal?: No CODE STATUS:: DNI INSURANCE COVERAGE / FINANCIAL ISSUES:: MCR/TIGIST CURRENT HOME/COMMUNITY SERVICES/EQUIPMENT:: Aleida lives at [facility], where she receives all of her care. PRIMARY CARE PHYSICIAN:: Vaughn Navarro POTENTIAL DISCHARGE NEEDS:: Coordinated return to [facility] PATIENT/FAMILY EDUCATION NEEDS:: Review discharge instructions and limitations, discussion of self care needs including ask me three. ANTICIPATED BARRIERS TO DISCHARGE:: None. TRANSPORTATION:: Via facility w/c van PLAN:: Anticipate Aleida will return home once medically cleared. She will transport via facility w/c van. She will follow up with facility providers and her discharge plan of care. CM will continue to follow.
[2022-08-13] MEDS: DOXYCYCLINE 100 MG in Normal Saline 100 ML IVPB ×2 (12:50→21:33)
[2022-08-13] MEDS: DEXTROSE 5%-WATER 1,000 ML 125 ML IV (13:00)
[2022-08-13 14:13] VITALS: BP 99/51; PULSE 80; RESP 18; TEMP 36.2; O2SAT 90
[2022-08-13 14:29] LABS: Bilirubin Negative (Negative); Blood Negative (Negative); Clarity Sl Cloudy (Clear); Glucose Negative (Negative); Ketones Negative (Negative); Leukocyte Esterase Negative (Negative); Nitrite Negative (Negative); Specific Gravity >= 1.030 (1.005-1.025); Urobilinogen 0.2 mg/dL (Up to 0.2)
[2022-08-13 14:37] LABS: Epithelial Cells Few HPF (Negative)
[2022-08-13 14:38] LABS: Bacteria Negative HPF (Negative); C & S Indicated? Yes; Casts Negative LPF (Negative); Crystals Negative HPF (Negative); Mucus Heavy (Negative)
--- NOTE | 2022-08-13 15:45 | W.PM.PROGNOT ---
Date of Service Date of service: 08/13/22 Time of Service: 15:46 Assessment and Plan Assessment and plan (1) Extrapyramidal and movement disorder: Status: Chronic Assessment and plan: Continue clonazepam (2) Hypoglycemia: Status: Acute Assessment and plan: stable at this time; A1C 4.8 40 mg/dl in the ED - orange juice given with glucose rising to >80 Fingersticks AC HS and PRN Insta glucose. Contiunue IV D5 @ 125 ml/h (3) Hypernatremia: Status: Acute Assessment and plan: Sodium now 165 IV D5 @ 125 ml/h to replace water losses, she is very frail ,and lives at a facility, dementia. Prior hospitalization sodium levels 140-150s Serial repeat levels every 4 h for 24h and adjust accordingly. Five percent dextrose in water, intravenously, at a rate of 3 to 6 mL/kg/hour Once the serum sodium concentration has reached 145 mEq/L, the rate of infusion is reduced to 1 mL/kg/hour - 40 ml /h and continue until a normal serum sodium (140 mEq/L) is restored. (4) Pneumonia: Status: Acute Assessment and plan: Abx IV Ceftriaxone and doxycycline BC pending (5) Severe dementia: Status: Acute Assessment and plan: Safety measures, (6) DVT prophylaxis: Status: Deleted Assessment and plan: Enoxaparin 40 mg sq daily (7) Discharge planning issues: Status: Deleted Assessment and plan: Return to [facility] R on oral abx when stable and electrolytes normalize, recommend H&R do BID glucose levels - plan for discharge Discussed with Dr Walters Subjective Subjective Patient reports: no new complaints, tolerating liquids well, tolerating a regular diet and afebrile; denies shortness of breath Exam Const General: cooperative, no acute distress, frail appearing and ill appearing chronically Nutritional Appearance: thin Orientation: alert and awake [facility] Head: atraumatic General nose exam: external nose normal Mouth: oral mucosa abnormal (dry) Eyes General: appearance normal, both eyes and all related structures Resp Effort & Inspection: normal respiratory effort, cough Quality of cough: dry and no respiratory distress Auscultation: clear to auscultation bilaterally and diminished lung sounds on the right in the lower lung pete Cardio Rate: regular rate Rhythm: regular rhythm Heart Sounds: S1 normal and S2 normal Pulses: normal peripheral pulses GI Palpation: soft and nontender Skin General skin exam: no rashes or lesions noted Neuro General: patient alert, patient awake and moves all extremities Objective Last Vital Signs Temp 36.2 C L 08/13/22 14:13 Pulse 80 08/13/22 14:13 Resp 18 08/13/22 14:13 BP 99/51 L 08/13/22 14:13 Pulse Ox 90 L 08/13/22 14:13 Laboratory Results - last 24 hr 08/13/22 08/13/22 08/13/22 12:20 12:20 13:40 WBC 11.63 H RBC 3.66 L Hgb 11.2 Hct 39.5 MCV 108 H MCH 30.6 MCHC 28.4 L RDW 16.8 H Plt Count 202 MPV 10.7 Immature Gran % 0.6 Neutrophils % 84.7 Lymphocytes % 11.9 Monocytes % 2.6 Eosinophils % 0.1 Basophils % 0.1 Nucleated RBC % 0.0 Absolute Neutrophils 9.85 H Absolute Lymphocytes 1.38 Absolute Monocytes 0.30 Absolute Eosinophils 0.01 Absolute Basophils 0.01 Sodium 174 H* Potassium 3.7 Chloride 138 H Carbon Dioxide 27.6 Anion Gap 8.4 BUN 40 H Creatinine 0.8 Est GFR (CKD-EPI 2020) 77.27 Glucose 190 H Calcium 8.4 L Magnesium 2.4 Urine Color Yellow Urine Clarity Sl Cloudy Urine pH 6.0 Ur Specific [place] >= 1.030 H Urine Protein Trace H Urine Ketones Negative Urine Blood Negative Urine Nitrite Negative Urine Bilirubin Negative Urine Urobilinogen 0.2 Ur Leukocyte Esterase Negative Urine RBC 3-5 H Urine WBC 3-5 Ur Epithelial Cells Few Urine Crystals Negative Urine Bacteria Negative Urine Casts Negative Urine Mucus Heavy Urine Other Many Yeast Ur Culture Indicated? Yes Urine Glucose Negative Time Spent with Patient Time Spent with Patient: 25-34 minutes Time was spent: preparing to see the patient(eg.review tests), ordering medications,tests, procedures, referring, communicating with other health residential care officer, indepentently interpreting results, counseling the patient and care coordination
[2022-08-13] MEDS: Normal Saline Flush 10 ML SYR IVP (16:41)
[2022-08-13] MEDS: cefTRIAXone 1 GM/50 ML BAG IVPB (16:45)
[2022-08-13] MEDS: Enoxaparin 40 MG/0.4 ML SYR SC (16:45)
[2022-08-13 16:58] VITALS: O2SAT 92
[2022-08-13] MEDS: LORazepam 2 MG/ML VIAL 1 MG IVP (19:31)
[2022-08-13 20:01] VITALS: BP 123/64; PULSE 61; RESP 18; TEMP 36.1; O2SAT 92
[2022-08-13 20:24] LABS: Anion Gap 4.8 mmol/L (3-11); BUN 34 mg/dL (7-18); CO2 26.2 mmol/L (21.0-32.0); CREATININE 0.8 mg/dL (0.55-1.02); Calcium 8.2 mg/dL (8.5-10.1); Chloride 132 mmol/L (98-107); Estimated GFR 77.27 (mL/min/1.73m2); Glucose 294 mg/dL (74-106)
[2022-08-13 20:30] LABS: Potassium 4.8 mmol/L (3.5-5.1); Sodium 163 mmol/L (136-145)
[2022-08-13] MEDS: clonazePAM 1 MG TAB PO (21:31)
[2022-08-13] MEDS: traZODone 50 MG TAB PO (21:31)
[2022-08-14] VITALS (8 sets, daily range): BP systolic 122–160; BP diastolic 60–68; PULSE 54–69; RESP 14–20; TEMP 35.4–36.9; O2SAT 90–93
[2022-08-14] MEDS: DEXTROSE 5%-WATER 1,000 ML 125 ML IV ×3 (00:25→21:26)
[2022-08-14 00:37] LABS: BUN 32 mg/dL (7-18); CREATININE 0.7 mg/dL (0.55-1.02); Calcium 8.3 mg/dL (8.5-10.1); Chloride 135 mmol/L (98-107); Glucose 136 mg/dL (74-106); Potassium 4.1 mmol/L (3.5-5.1)
[2022-08-14 00:41] LABS: Sodium 168 mmol/L (136-145)
[2022-08-14 06:15] LABS: Abs Immature Grans 0.09 10^3/uL (0.0-0.06); Absolute Basophil Count 0.01 10^3/uL (0.0-0.2); Absolute Eosinophil Count 0.02 10^3/uL (0.0-0.7); Absolute Lymphocyte Count 1.96 10^3/uL (1.2-3.4); Absolute Monocyte Count 0.33 10^3/uL (0.1-0.8); Basophils % 0.1; Eosinophils % 0.2; HCT 34.5 % (36.0-46.0); HGB 9.9 g/dL (11.2-15.7); Immature Grans % 0.8; Lymphocytes % 18.5; MCH 30.6 pg (27.0-33.0); MCHC 28.7 % (32.0-36.0); MCV 107 fL (80-95); MPV 10.5 fL (8.0-11.0); Monocytes % 3.1; Neutrophils % 77.3; Platelet Count 220 10^3/uL (130-400); RBC 3.24 10^6/uL (3.93-5.22); RDW 16.3 % (11.7-14.6); RDW-SD 65.1 fL; WBC 10.61 10^3/uL (4.4-10.8)
[2022-08-14 06:53] LABS: Anion Gap 3.6 mmol/L (3-11); BUN 29 mg/dL (7-18); CO2 29.4 mmol/L (21.0-32.0); CREATININE 0.6 mg/dL (0.55-1.02); Calcium 8.5 mg/dL (8.5-10.1); Chloride 132 mmol/L (98-107); Estimated GFR 94.13 (mL/min/1.73m2); Glucose 97 mg/dL (74-106); Magnesium 2.2 mg/dL (1.8-2.4); Potassium 3.8 mmol/L (3.5-5.1)
[2022-08-14 07:01] LABS: Sodium 165 mmol/L (136-145)
[2022-08-14] MEDS: Glucose Oral Gel 15 GM/37.5 GM TUBE PO (08:15)
[2022-08-14 08:47] LABS: Glucose 123 mg/dL (74-106)
[2022-08-14] MEDS: Divalproex 125 MG SPRINKLE PO ×2 (09:25→21:27)
[2022-08-14] MEDS: Senna TAB 2 TAB PO ×2 (09:25→21:27)
[2022-08-14] MEDS: Potassium Chloride 20 MEQ TABCR 40 MEQ PO (09:25)
[2022-08-14] MEDS: Normal Saline Flush 10 ML SYR IVP (09:25)
[2022-08-14] MEDS: Ferrous Sulfate 325 MG TAB PO (09:26)
[2022-08-14] MEDS: buPROPion-CR 150 MG TABCR PO (09:26)
[2022-08-14] MEDS: Cholecalciferol (Vitamin D3) 1,000 UNIT TAB 1000 UNITS PO (09:26)
[2022-08-14] MEDS: Magnesium Chloride 64 MG TABCR PO ×2 (09:26→21:27)
[2022-08-14] MEDS: Pantoprazole 40 MG TABCR PO (09:26)
[2022-08-14] MEDS: predniSONE 20 MG TAB PO (09:26)
[2022-08-14] MEDS: Citalopram 20 MG TAB PO (09:26)
[2022-08-14] MEDS: DOXYCYCLINE 100 MG in Normal Saline 100 ML IVPB ×2 (09:27→21:27)
--- NOTE | 2022-08-14 11:33 | W.NUTCONSULT ---
Date of service: 08/14/22 Time of Service: 11:33 Nutritional Consult ASSESSMENT: Doris admitted over weekend with PNA, hypoglycemia, hypoxia. 9 lbs weight loss noted in last 30 days- considered significant and of concern. BMI of 19 on low end of acceptable. Following low sodium, soft bite sized meals with good acceptance. Receives glucerna shakes BID to supplement po intake. Currently meeting 100% nutrient needs. Estimated Needs: BEE x 1.5 (higher nutrient needs with constant movement): 3671-4483 kcal, 45-55 g protein INTERVENTION: Diet as ordered glucerna shake BID MONITORING AND EVALUATION: weight, po intake, labs. Time Spent in Nutritional Counseling and Treatment: 0
[2022-08-14] MEDS: cefTRIAXone 1 GM/50 ML BAG IVPB (16:28)
--- NOTE | 2022-08-14 17:06 | CMPROGNOTE_ITS ---
- If Service Date Differs Date of service: 08/14/22 Time of Service: 17:06 Care Management Progress Note S/O: Aleida remains inpatient, no change to overall plan, CM continues to follow. A: 76 year old female admitted to [facility] 08/12/22 for Pneumonia P: Aleida will return home to [facility] once medically cleared. She will transport via facility w/c van. She will follow up with facility providers and her discharge plan of care. CM will continue to follow.
[2022-08-14] MEDS: Enoxaparin 40 MG/0.4 ML SYR SC (18:02)
[2022-08-14 19:51] LABS: Anion Gap 6.8 mmol/L (3-11); BUN 25 mg/dL (7-18); CO2 28.2 mmol/L (21.0-32.0); CREATININE 0.7 mg/dL (0.55-1.02); Calcium 8.6 mg/dL (8.5-10.1); Chloride 127 mmol/L (98-107); Glucose 186 mg/dL (74-106); Potassium 3.9 mmol/L (3.5-5.1)
[2022-08-14 20:25] LABS: Sodium 162 mmol/L (136-145)
[2022-08-14] MEDS: clonazePAM 1 MG TAB PO (21:27)
[2022-08-14] MEDS: traZODone 50 MG TAB PO (21:27)
[2022-08-15] MEDS: DEXTROSE 5%-WATER 1,000 ML 125 ML IV ×2 (06:02→15:35)
[2022-08-15 06:59] LABS: BUN 21 mg/dL (7-18); CREATININE 0.5 mg/dL (0.55-1.02); Calcium 7.9 mg/dL (8.5-10.1); Chloride 121 mmol/L (98-107); Estimated GFR 98.36 (mL/min/1.73m2); Glucose 73 mg/dL (74-106); Potassium 3.6 mmol/L (3.5-5.1); Sodium 154 mmol/L (136-145)
[2022-08-15 07:38] LABS: Abs Immature Grans 0.12 10^3/uL (0.0-0.06); Absolute Basophil Count 0.01 10^3/uL (0.0-0.2); Absolute Eosinophil Count 0.04 10^3/uL (0.0-0.7); Absolute Lymphocyte Count 2.22 10^3/uL (1.2-3.4); Absolute Monocyte Count 0.31 10^3/uL (0.1-0.8); Absolute Neutrophil Count 5.37 10^3/uL (1.2-6.7); Basophils % 0.1; Eosinophils % 0.5; HCT 32.9 % (36.0-46.0); HGB 9.8 g/dL (11.2-15.7); Immature Grans % 1.5; Lymphocytes % 27.5; MCH 30.6 pg (27.0-33.0); MCHC 29.8 % (32.0-36.0); MCV 103 fL (80-95); MPV 11.1 fL (8.0-11.0); Monocytes % 3.8; Neutrophils % 66.6; Platelet Count 186 10^3/uL (130-400); RDW 15.8 % (11.7-14.6); RDW-SD 59.7 fL; WBC 8.07 10^3/uL (4.4-10.8)
[2022-08-15] MEDS: Glucose Oral Gel 15 GM/37.5 GM TUBE PO ×2 (07:53→11:28)
[2022-08-15] MEDS: Cholecalciferol (Vitamin D3) 1,000 UNIT TAB 1000 UNITS PO (07:59)
[2022-08-15] MEDS: predniSONE 20 MG TAB PO (07:59)
[2022-08-15] MEDS: Magnesium Chloride 64 MG TABCR PO ×2 (07:59→21:00)
[2022-08-15] MEDS: Citalopram 20 MG TAB PO (08:00)
[2022-08-15] MEDS: buPROPion-CR 150 MG TABCR PO (08:00)
[2022-08-15] MEDS: Divalproex 125 MG SPRINKLE PO ×2 (08:00→21:00)
[2022-08-15] MEDS: Senna TAB 2 TAB PO ×2 (08:01→21:00)
[2022-08-15] MEDS: Ferrous Sulfate 325 MG TAB PO (08:01)
[2022-08-15] MEDS: Pantoprazole 40 MG TABCR PO (08:02)
[2022-08-15] MEDS: Potassium Chloride 20 MEQ TABCR 40 MEQ PO (08:02)
[2022-08-15 08:10] VITALS: BP 111/55; PULSE 71; RESP 20; TEMP 36.3; O2SAT 98
--- NOTE | 2022-08-15 09:19 | PDOC.CMPRO ---
- If Service Date Differs Date of service: 08/15/22 Time of Service: 09:19 Care Management Progress Note S/O: Aleida remains inpatient, no change to overall plan, CM continues to follow. A: 76 year old female admitted to [facility] 08/12/22 for Pneumonia P: Aleida will return home to [facility] once medically cleared. She will transport via facility w/c van. She will follow up with facility providers and her discharge plan of care. CM will continue to follow.
[2022-08-15] MEDS: DOXYCYCLINE 100 MG in Normal Saline 100 ML IVPB (10:44)
[2022-08-15] MEDS: clonazePAM 0.5 MG TAB PO (10:50)
--- NOTE | 2022-08-15 10:57 | NUR.NOTE ---
Nursing Note: pt has had increased agitation. she is attempted to get out of bed, stating that she wants to get out. pt was educated to stay in the bed and an alarm pad was set underneath her for safety
[2022-08-15 11:18] VITALS: BP 135/67; PULSE 63; RESP 20; TEMP 35.6; O2SAT 97
--- NOTE | 2022-08-15 11:53 | NUR.NOTE ---
Nursing Note: no new orders to maintain bgl by MD. charge nurse made md aware.
[2022-08-15 12:51] LABS: Glucose 88 mg/dL (74-106)
--- NOTE | 2022-08-15 13:23 | NUR.NOTE ---
Nursing Note: @1000 notified charge nurse that pt has positive haydee culture in urine and was only receiving doxycycline and Rocephin. waiting for f/u r/t this topic
--- NOTE | 2022-08-15 14:20 | STREC_ITS ---
Date of service: 08/15/22 Time of Service: 13:20 Speech Therapy Recommendations Report Recommendations: DATA REPORT ANALYST Communication / Non-Treatment Note Consult order received; chart reviewed. DATA REPORT ANALYST communicated order to covering DATA REPORT ANALYST for 08/16. HPI: Patient is a 76 year old female admitted to [facility] 08/12/22 for Pneumonia, malaise, hypoxia, AMS; hx severe dementia, COPD, GERD, dental caries, chronic extraparametal movement disorder, bipolar disorder, hypernatremia along with other electrolyte abnormalities; is a current resident at [facility]; chest x- ray showed concerning findings for right lower lung opacity and possible pleural effusion, currently being treated for pna, and per chart, current diet is Low Sodium / Level 6 Soft/Bite Sized solids / Level 3 Mod Thick Liquids, nursing reported *difficulty w chewing and weak cough*, Plan is to return to [facility] on oral abx when stable and electrolytes normalize; as of 08/15, nursing reports pt is tolerating liquids well, afebrile, denies shortness of breath. Plan: DATA REPORT ANALYST to return 08/16 for full assessment/screening as appropriate, provide updated recommendations. Bettina Bird MA CCC-DATA REPORT ANALYST Speech-Language Pathologist [place]#[phone] Coding
--- NOTE | 2022-08-15 14:20 | PDOC.STREC ---
Date of service: 08/15/22 Time of Service: 13:20 Speech Therapy Recommendations Report Recommendations: SOCIETY EDITOR Communication / Non-Treatment Note Consult order received; chart reviewed. SOCIETY EDITOR communicated order to covering SOCIETY EDITOR for 08/16. HPI: Patient is a 76 year old female admitted to [facility] 08/12/22 for Pneumonia, malaise, hypoxia, AMS; hx severe dementia, COPD, GERD, dental caries, chronic extraparametal movement disorder, bipolar disorder, hypernatremia along with other electrolyte abnormalities; is a current resident at [facility]; chest x-ray showed concerning findings for right lower lung opacity and possible pleural effusion, currently being treated for pna, and per chart, current diet is Low Sodium / Level 6 Soft/Bite Sized solids / Level 3 Mod Thick Liquids, nursing reported *difficulty w chewing and weak cough*, Plan is to return to [facility] on oral abx when stable and electrolytes normalize; as of 08/15, nursing reports pt is tolerating liquids well, afebrile, denies shortness of breath. Plan: SOCIETY EDITOR to return 08/16 for full assessment/screening as appropriate, provide updated recommendations. Bettina Bird MA CCC-SOCIETY EDITOR Speech-Language Pathologist [place]#[phone] Coding
[2022-08-15 14:52] VITALS: BP 101/54; PULSE 59; RESP 18; TEMP 36; O2SAT 100
[2022-08-15] MEDS: cefTRIAXone 1 GM/50 ML BAG IVPB (15:44)
--- NOTE | 2022-08-15 15:52 | PGE_ITS ---
Date of Service Date of service: 08/15/22 Time of Service: 15:52 Assessment and Plan Assessment and plan (1) Extrapyramidal and movement disorder: Status: Chronic Assessment and plan: Continue clonazepam (2) Hypoglycemia: Status: Acute Assessment and plan: continues to have low readings; A1C 4.8 Fingersticks AC HS and PRN Insta glucose. Contiunue IV D5 @ 125 ml/h (3) Hypernatremia: Status: Acute Assessment and plan: normalizing (4) Pneumonia: Status: Acute Assessment and plan: Abx IV Ceftriaxone and doxycycline BC pending (5) Severe dementia: Status: Acute Assessment and plan: Safety measures, (6) DVT prophylaxis: Status: Acute Assessment and plan: Enoxaparin 40 mg sq daily (7) Discharge planning issues: Status: Acute Assessment and plan: Return to [facility] on oral abx when stable and electrolytes normalize, recommend H&R do BID glucose levels - plan for discharge Discussed with Dr Walters Exam Const General: cooperative, no acute distress, frail appearing and ill appearing chronically Nutritional Appearance: thin Orientation: alert and awake HENMT Head: atraumatic General nose exam: external nose normal Mouth: oral mucosa abnormal (dry) Eyes General: appearance normal, both eyes and all related structures Resp Effort & Inspection: normal respiratory effort and no respiratory distress Cardio Rate: regular rate Rhythm: regular rhythm Pulses: normal peripheral pulses GI Palpation: soft and nontender Skin General skin exam: no rashes or lesions noted Neuro General: patient alert, patient awake and moves all extremities Objective Last Vital Signs Temp 36 C L 08/15/22 14:52 Pulse 59 L 08/15/22 14:52 Resp 18 08/15/22 14:52 BP 101/54 L 08/15/22 14:52 Pulse Ox 100 08/15/22 14:52 Laboratory Results - last 24 hr 08/14/22 08/15/22 08/15/22 19:18 06:25 07:03 WBC 8.07 RBC 3.20 L Hgb 9.8 L Hct 32.9 L MCV 103 H D MCH 30.6 MCHC 29.8 L RDW 15.8 H Plt Count 186 MPV 11.1 H Immature Gran % 1.5 Neutrophils % 66.6 Lymphocytes % 27.5 Monocytes % 3.8 Eosinophils % 0.5 Basophils % 0.1 Nucleated RBC % 0.0 Absolute Neutrophils 5.37 Absolute Lymphocytes 2.22 Absolute Monocytes 0.31 Absolute Eosinophils 0.04 Absolute Basophils 0.01 Sodium 162 H* 154 H Potassium 3.9 3.6 Chloride 127 H 121 H Carbon Dioxide 28.2 28.0 Anion Gap 6.8 5.0 BUN 25 H 21 H Creatinine 0.7 0.5 L Est GFR (CKD-EPI 2020) 90.70 98.36 Glucose 186 H 73 L Calcium 8.6 7.9 L Magnesium 08/15/22 08/15/22 07:25 12:32 WBC RBC Hgb Hct MCV MCH MCHC RDW Plt Count MPV Immature Gran % Neutrophils % Lymphocytes % Monocytes % Eosinophils % Basophils % Nucleated RBC % Absolute Neutrophils Absolute Lymphocytes Absolute Monocytes Absolute Eosinophils Absolute Basophils Sodium Potassium Chloride Carbon Dioxide Anion Gap BUN Creatinine Est GFR (CKD-EPI 2020) Glucose 88 Calcium Magnesium 2.0 Time Spent with Patient Time Spent with Patient: 35-49 minutes Time was spent: preparing to see the patient(eg.review tests), obtaining and/or reviewing separately otained hiistory, ordering medications,tests, procedures and indepentently interpreting results
[2022-08-15] MEDS: Enoxaparin 40 MG/0.4 ML SYR SC (17:30)
[2022-08-15 20:00] VITALS: BP 104/65; PULSE 60; RESP 16; TEMP 37.8; O2SAT 96
[2022-08-15] MEDS: traZODone 50 MG TAB PO (21:00)
[2022-08-15] MEDS: clonazePAM 1 MG TAB PO (21:00)
[2022-08-15 22:55] VITALS: BP 96/60; PULSE 60; RESP 16; TEMP 36.6; O2SAT 97
--- NOTE | 2022-08-16 | DI.RAD_ITS ---
Exam(s) XR CHEST 2V PA LATERAL EXAM: XR CHEST 2V PA LATERAL CLINICAL HISTORY: recheck, continues to aspirate TECHNIQUE: 2D digital imaging was performed of the chest. Three images were obtained. PA and later al views were obtained. COMPARISON: CR XR CHEST 2V PA LATERAL from 07/17/2022 CR,XR XR PORTABLE CHEST AP from 08/12/2022 FINDINGS: MEDIASTINUM: Normal. HEART: Normal. PULMONARY VASCULATURE: Normal. LUNGS: There is a persistent right basilar infiltrate which is unchanged. The left lung remains azeem r. PLEURAL SPACE: There is a right pleural effusion. A small left pleural effusion cannot be excluded o n the lateral view. BONE:Within normal limits for the patient's age. OTHER FINDINGS:Normal. IMPRESSION: Persistent right basilar infiltrate and right pleural effusion. They appear grossly unchanged compar ed to the prior examination from 08/12/2022. DATA REPOSITORY: RADIATION DOSE DELIVERED:
[2022-08-16] MEDS: DEXTROSE 5%-WATER 1,000 ML 125 ML IV ×3 (00:01→16:19)
[2022-08-16 03:55] VITALS: BP 101/62; PULSE 60; RESP 17; TEMP 36.4; O2SAT 94
[2022-08-16 07:15] VITALS: BP 108/64; PULSE 60; RESP 14; TEMP 35.9; O2SAT 94
[2022-08-16] MEDS: Milk of Magnesia 30 ML CUP PO (08:10)
[2022-08-16] MEDS: Divalproex 125 MG SPRINKLE PO ×2 (08:10→20:32)
[2022-08-16] MEDS: buPROPion-CR 150 MG TABCR PO (08:12)
[2022-08-16] MEDS: predniSONE 20 MG TAB PO (08:12)
[2022-08-16] MEDS: Pantoprazole 40 MG TABCR PO (08:13)
[2022-08-16] MEDS: Senna TAB 2 TAB PO ×2 (08:14→20:31)
[2022-08-16] MEDS: Citalopram 20 MG TAB PO (08:17)
[2022-08-16] MEDS: Cholecalciferol (Vitamin D3) 1,000 UNIT TAB 1000 UNITS PO (08:18)
[2022-08-16] MEDS: Ferrous Sulfate 325 MG TAB PO (08:18)
[2022-08-16] MEDS: Magnesium Chloride 64 MG TABCR PO ×2 (08:18→20:31)
[2022-08-16] MEDS: Acetaminophen 325 MG TAB 650 MG PO (08:18)
[2022-08-16] MEDS: Bisacodyl 10 MG SUPP PR (08:19)
[2022-08-16] MEDS: Potassium Chloride 20 MEQ TABCR 40 MEQ PO (08:19)
--- NOTE | 2022-08-16 09:52 | W.SPSTE ---
Date of service: 08/16/22 Time of Service: 09:52 Subjective Clinical (Bedside) Swallow Evaluation Speech Language Pathology Patient referred for Clinical Swallow Evaluation from Sarah villagran reported poor tolerance of liquids and solids. Precautions: Safety measures, fall, aspiration, DNI. HPI: 76 year old female admitted to [facility] 08/12/22 for Pneumonia, malaise, hypoxia, AMS; hx severe dementia, COPD, GERD, dental caries, chronic extraparametal movement disorder, bipolar disorder, hypernatremia along with other electrolyte abnormalities; is a current resident at [facility]; chest x-ray showed concerning findings for right lower lung opacity and possible pleural effusion, currently being treated for pna, and per chart, current diet is Low Sodium / Level 6 Soft/Bite Sized solids / Level 3 Mod Thick Liquids, nursing reported *difficulty w chewing and weak cough*, Plan is to return to [facility] on oral abx when stable and electrolytes normalize; as of 08/15, nursing reports pt is tolerating liquids well, afebrile, denies shortness of breath PFSH All Active Problems?(Updated 08/12/22 @ 15:43 by Alberto Russell NP) Pneumonia (Acute) Hypomagnesemia (Acute) Hypokalemia (Acute) Hypoglycemia (Acute) Extrapyramidal and movement disorder (Chronic) Impulsiveness (Acute) Moderate bipolar disorder (Acute) Severe dementia (Acute) Cellulitis of submandibular region (Acute) Hypernatremia (Acute) Medical History? Allergic rhinitis Anemia COPD (chronic obstructive pulmonary disease) Dementia Dental caries GERD (gastroesophageal reflux disease) Hyperlipidemia Insomnia Major depressive disorder Muscle weakness Perioral dermatitis Primary hypertension Repeated falls Subjective: Aleida was contacted at bedside this date with nursing present for portions of this session. She does not provide subjective regarding baseline swallow function/symptoms, but is able to verbalize agreement with clinician observations regarding patient's poor tolerance of PO this visit. Objective Objective SCHOOL OFFICE ASSISTANT assisting to provide oral care and demonstration for use of suction care kits to improve oral care and decrease risk of posterior loss and aspiration of bacteria/plaque. Respiratory status: :Tolerating O2 via nasal cannula. Some open mouth posture though suspect largely due to dyskenesia as opposed to air hunger. Mental status: Not oriented but able to follow single step instructions and respond to simple questions. Oral motor evaluation: Notable for: Largely edentulous with several poor teeth in poor dentition (lower lateral incisor, canine, premolar bilaterally) Patient with visual residual chocolate ensure beverage left in mouth from prior PO trials prior to SCHOOL OFFICE ASSISTANT arrival. Tongue is dry, signficant flakey buildup throughout mouth though per RN this is significantly improved over yesterday. Motor exam is limited due to patient's dyskenesia and difficulty with following many instructions, she is able to open her mouth somewhat and protrude her tongue minimally on command. Suspect this is largely due to dyskinesia. Unable to elicit volitional saliva swallow. No volitional cough but with mildly weak reflexive cough. PO TRIALS: Food items tested: ?? Ice: x2 (no swallow initiation) IDDSI 0: X2 sips via tsp - consistent s/sx aspiration IDDSI 2: X5 sips via tsp - consistent s/sx aspiration IDDSI 3: x12 sips via tsp IDDSI 4: x10 via tsp Pill/tablet: Crushed in puree Oral phase: Leakage from mouth Difficulty with bolus manipulation Difficulty with a-p transport Difficulty chewing Residue Oral fixation (dementia) with rejection of solid textures (e.g., pieces of uncrushed medication). Extrapyramidal movements such as head movemetns and mouth opening/closing, tongue movements disrupting oral phase of swallow. Pharyngeal phase: Delayed swallow initiation - significant, sometimes absent Reduced hyolaryngeal elevation/excursion - suspected Cough after swallow with watering eyes. Provided education to: Patient, Nursing, MD Topics Addressed: anatomy/physiology of swallowing mechanism, overt s/sx to monitor for re: potential aspiration of food / liquids, recommendations for improved oral care, relationship between respiratory function changes and deglutition, Rationale for recommendations as outlined below Outcome: Verbalized/demonstrated understanding (RN) Patient unable to verbalize understanding d/t dementia status Assessment Patient is likely aspirating at least trace amounts on a consistent basis given consistency of her s/sx aspiration. Recommend to reduce PO trials to conservative amounts of pudding/liquid with RN only, no meal trays, given poor tolerance at bedside this date. It is possible patient may see some improvement in swallow function if her medical/mental status improves, however, suspect she will remain at risk of aspiration. If little improvement consider palliative consult, discuss with family/patient regarding goals of care r/t eading/drinking. If in line with goals of care and patient would tolerate, MBSS may be indicated. DIET: NPO - due to consistent s/sx aspiration even with most conservative consistencies. RN may provide limited PO trials of 4. Puree/3. Moderately thick liquids for medication administration and to maintain swallow stimulation but full trays should not be offered. Strict, thorough oral care should be provided before and after PO intake provided by nursing Requested repeat chest xray to monitor current pulmonary status after SCHOOL OFFICE ASSISTANT evaluation. Will re-assess patient status at end of day. Requested palliative consult, hospitalist in agreement. Recommendations: Diet Texture Modification(s): IDDSI Level(s) No diet trays to be sent from [facility]. Nursing may provide intake of the following consistencies ifi the following conditions below are met: 4: Puree 3: Moderately thick liquids Medication Intake: Crushed with Level 4:puree PO trials should be given in small amounts (up to 10 bites) at a time every ~2 hrs throughout the day. If patient consistently coughing, eyes watering, wet vocal quality, STOP PO TRIALS. RISK MANAGEMENT: HOB upright as tolerated; upright for all PO intake. Encourage physical mobility as tolerated. Oral hygiene q4h/every 4 hours or before/after PO intake, using friction with toothbrush on all oral structures as tolerated, suction PRN ? Level of Assistance/Supervision: Assistive feeding only by trained staff/family PO intake only when awake/alert? Strategies/Adaptations/Assistive Equipment: Reduce auditory and/or visual distractions when eating Provide verbal and/or visual cues to use recommended strategies: Small sips and bites when eating (1/2 tsp) Slow rate of intake Swallow 2-3x per sip/bite Small+frequent meals throughout day Posture/Positioning Needs: Avoid meals/snacks 2-3 hours prior to reclining/sleeping Sleep with head of bed elevated to reduce likelihood of nocturnal reflux Plan SCHOOL OFFICE ASSISTANT to follow while on unit Short Term Goals: Patient/caregivers will be independent with risk management strategies as recommended above. TIME SPENT: 60min Coding Diagnoses CPT Codes EVALUATE SWALLOWING FUNCTION - [id number] ([id number])
--- NOTE | 2022-08-16 10:14 | PDOC.CMPRO ---
- If Service Date Differs Date of service: 08/16/22 Time of Service: 10:14 Care Management Progress Note S/O: CM spoke to Aleida's daughter, Isa, and provided an update. CM reviewed the plan with Isa, stating that once Aleida is medically cleared, she will return to [facility], where she resides. Aleida will meet with Palliative care today to discuss her goals of care, specifically surrounding her diet order, which is limited currently due to concerns about aspiration. CM will continue to follow. A: 76 year old female admitted to [facility] 08/12/22 for Pneumonia P: Aleida will return home to [facility] once medically cleared. She will transport via facility w/c van. She will follow up with facility providers and her discharge plan of care. CM will continue to follow.
[2022-08-16 11:25] VITALS: BP 98/58; PULSE 86; RESP 14; TEMP 35.9; O2SAT 94
[2022-08-16] MEDS: Glucose Oral Gel 15 GM/37.5 GM TUBE PO (11:46)
[2022-08-16 11:59] LABS: Anion Gap 5.9 mmol/L (3-11); BUN 10 mg/dL (7-18); CO2 24.1 mmol/L (21.0-32.0); CREATININE 0.4 mg/dL (0.55-1.02); Chloride 111 mmol/L (98-107); Estimated GFR 103.79 (mL/min/1.73m2); Glucose 240 mg/dL (74-106); Potassium 3.3 mmol/L (3.5-5.1); Sodium 141 mmol/L (136-145)
[2022-08-16 12:01] LABS: Calcium 6.3 mg/dL (8.5-10.1)
--- NOTE | 2022-08-16 12:19 | NUR.NOTE ---
Nursing Note: @1100, this rn went with pt to xray for exam. pt was returned to her room where she promptly had her capillary bgl reassessed. pt bgl was 15 on poc monitor. rechecked with a different monitor and capillary bgl of 43. blood was drawn from her iv site to prevent more than 3 peripheral sticks by phlebotomy.
[2022-08-16 12:56] LABS: Albumin 1.6 g/dL (3.4-5.0)
--- NOTE | 2022-08-16 14:41 | PCNE_ITS ---
Date of service: 08/16/22 Time of Service: 13:30 History of Present Illness Narrative: Ms. Shin is a 76 y/o F currently inpt at [facility] 2/2 PNA, extrapyramidal movement disorder, hypoglycemia; PMHx sig for bipolar d/0, MDD, advanced dementia, COPD, BENY, GERD, HLD Hospital course: presented to ED on 08/12/22, work up consistent w/PNA, hypoglycemia and hypernatremia; transferred inpatient; clinically has improved w/cefrtriaxone and doxycycline, however BS have remained unstable; plan for d/c back to H/R once medically cleared per H/R: Aleida at baseline self propels with wheelchair appropriately, responsive and talkative with staff and residents at [facility], will wander into peoples rooms; increased call outs of being upset, feeling stuck and crying out wanting her mom, a few weeks ago had 1 issue of increased yayo with self-harm concerns, [facility] referral has been placed, healthcare agent improved transfer, however prior to transfer presented to emergency room. Her p.o. intake has been limited throughout her course at [facility], they continue to encourage her eat food, provide meal supplementation, she does not eat well, on an average day 25%. She has had an increased in the amount of falls, remains incontinent of urine and bowels, requires assistance with dressing and hygiene. Transfers with assistance. He has paperwork for COLST and guardianship, COLST states CPR with no intubation, no feeding tube, no artificial hydration, abx okay, yes transfer per Isa (daughter/HCA): June 2021 patient was living independent and doing well, came down with COVID then pneumonia which required drainage, and immediately after surgery there was a significant decline, she was unsafe at home and moved into [facility] December 2021, transfered for to [facility] the end of May afternoon [facility] closed; she states that her mother told her she would not want to be intubated again, they have never had conversations regarding life-sustaining interventions, she is aware of the COLST previously completed. per staff: Has had a busy day, with imaging, labs, she has expressed that she is tired today. She told nurse she feels lost , has been asking for family more, when asked from the nurse if do you want to Aleida answered yes, states that she was alert and oriented at that time. She is remained sweet and pleasant, no outburst of anger or yayo. She continues to be a high aspiration risk, limited oral intake, noticing regurgitation with oral hygiene, PERSONAL PROPERTY APPRAISER following, continues to get dextrose water, however still having low blood sugar episodes, investigating psych medication interaction, PO intake? She is a total care assist, transferred from bed to bedside commode today, has remained obtunded throughout the day, with waxing and waning ability to participate Aleida was sleeping at the time of our visit, she woke w/gentle touch/introduction, but returned to sleeping, declining furhter conversation. Assessment and Plan Assessment and plan (1) Pneumonia: Status: Acute Assessment and plan: continues ceftriaxone and doxycycline blood culture pending clinically improving (2) Hypoglycemia: Status: Acute Assessment and plan: continues w/episodes of hypoglycemia, despite D5; -ongoing, uncontrolled Fingersticks AC HS and PRN Insta glucose. Contiunue IV D5 @ 125 ml/h (3) Extrapyramidal and movement disorder: Status: Chronic Assessment and plan: continue clonazepam chronic (4) Moderate bipolar disorder: Status: Acute Assessment and plan: chronic recent episodes of yayo noted at H/R, [facility] referral if sxs present, risk for self-harm/injury or harm to others presents (5) Severe dementia: Status: Acute Assessment and plan: w/concurrent bipolar disorder FAST Scale at baseline appears to be 6e consider hospice eligiblity (6) Hypernatremia: Status: Acute Assessment and plan: improving (7) Advance care planning: Status: Acute Assessment and plan: reviewed w/Isa CODE status, intubation as part of CPR, at this time Aleida remains a full code, pending follow up conversations, Isa to visit pt on Sunday - to return to H/R, plan to remain there thru EOL - COLST reviewed from H/R, requested guardianship and COLST faxed to PC office CPR atempt, DNI, transfer, administer abx, NO FT, no parental hydration listed on COLST - need for determination of IVF w/Isa, guardian; did not discuss today (8) Muscle weakness: Assessment and plan: not back to baseline, assistance w/transfers to bedside commode today baseline is self-propel in WC s/p transfer assist (9) Ambulatory dysfunction: Status: Acute Assessment and plan: WC bound at baseline, requiring assistance w/transfer Review of Systems Narrative: as per HPI PFSH All Active Problems (Updated 08/16/22 @ 16:20 by Kyra Barrios NP) Ambulatory dysfunction (Acute) Advance care planning (Acute) Pneumonia (Acute) Hypomagnesemia (Acute) Hypokalemia (Acute) Hypoglycemia (Acute) Extrapyramidal and movement disorder (Chronic) Impulsiveness (Acute) Moderate bipolar disorder (Acute) Severe dementia (Acute) Cellulitis of submandibular region (Acute) Hypernatremia (Acute) Medical History Allergic rhinitis Anemia COPD (chronic obstructive pulmonary disease) Dementia Dental caries GERD (gastroesophageal reflux disease) Hyperlipidemia Insomnia Major depressive disorder Muscle weakness Perioral dermatitis Primary hypertension Repeated falls Social History Smoking/Tobacco Use Status: Former Tobacco Use Smoking risk assessment performed?: Yes Alcohol Intake: never Drug use: Never Substance use type: does not use Do you feel safe at home: Yes Do you feel safe in your relationship?: Yes Exam Narrative Exam Narrative: General: older adult female, appears older than listed age, frail, chronically ill appearing, NAD HEENT: normocephalic, atraumatic, oliodontia; dry oral mucosa Resp: respirations even and unlabored, mouth open Neuro: no tremors noted Psych: sleeping, unengaged, refusal to participate Results Last Vital Signs Temp 96.6 F L 08/16/22 11:25 Pulse 86 08/16/22 11:25 Resp 14 08/16/22 11:25 BP 98/58 L 08/16/22 11:25 Pulse Ox 94 08/16/22 11:25 Labs 08/15/22 07:03 08/16/22 11:30 Labs: Laboratory Results - last 24 hr 08/16/22 08/16/22 11:30 12:35 Sodium 141 D Potassium 3.3 L Chloride 111 H Carbon Dioxide 24.1 Anion Gap 5.9 BUN 10 Creatinine 0.4 L Est GFR (CKD-EPI 2020) 103.79 Glucose 240 H Calcium 6.3 L* Albumin 1.6 L
[2022-08-16 15:17] VITALS: BP 99/61; PULSE 64; RESP 18; TEMP 36.1; O2SAT 97
[2022-08-16] MEDS: cefTRIAXone 1 GM/50 ML BAG IVPB (16:15)
--- NOTE | 2022-08-16 17:17 | PT.INIE ---
Date of service: 08/16/22 Time of Service: 14:45 PT Notes Visit Reasons: Pneumonia Physical Therapy Inpatient Initial Evaluation Date: 08/16/2022 Referring Doctor: Sofia Yang NP PT Orders: PT CONSULT: Eval/treat Precautions: Fall. Standard. Activity as tolerated. Impaired safety awareness. Patient Profile/Admitting Diagnosis: Aleida is a 76-year-old female [facility] who presented to the ED on 08/12/2022 due to generalized body malaise, shortness of breath, and behavioral change. Patient is admitted to [facility] for close monitoring of hypoglycemia, hyponatremia, pneumonia, and chronic extraparametal movement disorder. PMHX: All Active Problems?(Updated 08/12/22 @ 15:43 by Alberto Russell NP) Pneumonia (Acute) Hypomagnesemia (Acute) Hypokalemia (Acute) Hypoglycemia (Acute) Extrapyramidal and movement disorder (Chronic) Impulsiveness (Acute) Moderate bipolar disorder (Acute) Severe dementia (Acute) Cellulitis of submandibular region (Acute) Hypernatremia (Acute) Medical History? Allergic rhinitis Anemia COPD (chronic obstructive pulmonary disease) Dementia Dental caries GERD (gastroesophageal reflux disease) Hyperlipidemia Insomnia Major depressive disorder Muscle weakness Perioral dermatitis Primary hypertension Repeated falls Social History/Home Situation: Per review of records, patient's main form of mobility is with the use of a wheelchair. Required assistance with transfers at the SNF. Equipment Owned/DME: SNF resident. Wheelchair. Subjective: Agreeable to being moved to bedside chair. Wondering if she can have ice cream as she reports of being hungry. Complained of being so tired and sleepy this session. Objective: General Observation: Supine in bed. Lethargic, needed three attempts from PT to stay awake to engage patient in PT evaluation. Oxygen saturation via NC at 2 L/minute. Mental Status: Drowsy. Does not where she is. Did say that she was born in [place]. Disoriented as to date and time. Able to follow single commands. Pain: Denies ROM: Right Upper Extremity: Grossly WFL Left Upper Extremity: Grossly WFL Right Lower Extremity: Grossly WFL Left Lower Extremity: Grossly WFL Strength: Right Upper Extremity: Grossly 3-/5 in the shoulder, 4-/5 in the elbow and wrist/hand Left Upper Extremity: Grossly 3-/5 in the shoulder, 4-/5 in the elbow and wrist/hand Right Lower Extremity: Grossly 3-/5 Left Lower Extremity: Grossly 3-/5 Bed Mobility/Transfers: Supine to sit moderate assist Sit to stand moderate assist of 2. Nurse Mela assisting for bed to wheelchair transfer. DRUM SANDER SETTER Anita assisting standing up from chair to ensure that alarm system is placed on patient's chair. Stand to sit moderate assist of 2 Bed to reclining chair moderate assist of 2 Gait: 5-6 steps from edge of bed to bedside Nurse Mela ardon assisting. Steps asymmetric. Needed maximal cueing for walker management and safe gait pattern. Moderately ataxic. Balance: Static Sitting: Fair Dynamic Sitting: Fair Static Standing: Poor Dynamic Standing: Unable Special Tests: Mobility Limitations Standardized Measure [facility] AM-PAC 6 clicks Basic Mobility Inpatient Short Form: Raw Score: 10 CMS Score: 77% deficit Informed Consent/Education: Patient was instructed in purpose of PT consult and plan of care. Assessment: Patient presents with clinical signs and symptoms consistent with current/admitting diagnoses that have resulted to mobility limitations, gait instability, generalized weakness, and overall ADL decline as demonstrated by the following impairment level findings: 1. Decreased strength to B UE/LE major muscle groups 2. Impaired sitting balance 3. Impaired activity tolerance 4. Involuntary facial and B UE/LE movements worse with movement 5. Shortness of breath 6. Impaired safety awareness 7. Wheelchair-bound Impairments are contributing to the following functional limitations: 1. Decline in bed mobility skills 2. Decline in transfer skills 3. Increased completion time for mobility ADL performance 4. Increased risk for falls Patient is assessed as a 31433 high complexity based on the following: History: 76-year-old female with past medical history as indicated above Examination: Demonstrable impairment in strength, balance, and mobility level with underlying impairments and functional limitations as exhibited above as well as deficit score of 77% utilizing the [facility] Mobility Inpatient Short Form Presentation: Evolving Decision Makin high complexity Goals: Goals X1 week 1. Supine-Sit supervision 2. Sit-Supine supervision 3. Sit-Stand minimal assist 4. Stand-Sit minimal assist 5. Bed-Chair minimal assist 6. Chair-Bed minimal assist 7. Fair static and dynamic standing balance/tolerance Plan of Care/Treatment Plan: 1-2x/day, 7 days/week x 1 week. Plan of care to focus on B UE/LE strengthening and transfer skills to reduce fall risk upon return to SNF. DISCHARGE RECOMMENDATIONS: [] Home with no services [] [] Home with services [specify] [] Home with outpatient PT [] [] SNF for continued rehabilitation [] [] Half-Way Care [] [] SNF versus LTC based on ability to participate and progress [] [X] return to SNF when medically cleared TREATMENT CODE/TIME: 86380 x 20 minutes, 88870 x 11 minutes beginning at 14:45 PM. Thank you for the opportunity to participate in the care of this patient. Andreia Pace PT, DPT, CLT [facility] [place], [place]
--- NOTE | 2022-08-16 18:05 | PGE_ITS ---
Date of Service Date of service: 08/16/22 Time of Service: 18:05 Assessment and Plan Assessment and plan (1) Pneumonia: Status: Acute Assessment and plan: continues ceftriaxone and doxycycline blood culture pending clinically improving (2) Hypoglycemia: Status: Acute Assessment and plan: continues w/episodes of hypoglycemia, despite D5; -ongoing, uncontrolled Fingersticks AC HS and PRN Insta glucose. Contiunue IV D5 @ 125 ml/h (3) Extrapyramidal and movement disorder: Status: Chronic Assessment and plan: continue clonazepam chronic (4) Moderate bipolar disorder: Status: Acute Assessment and plan: chronic recent episodes of yayo noted at [facility], [facility] [place] referral if sxs present, risk for self-harm/injury or harm to others presents (5) Severe dementia: Status: Acute Assessment and plan: w/concurrent bipolar disorder FAST Scale at baseline appears to be 6e consider hospice eligiblity (6) Hypernatremia: Status: Acute Assessment and plan: normalizing (7) Muscle weakness: Assessment and plan: not back to baseline, assistance w/transfers to bedside commode today baseline is self-propel in WC s/p transfer assist (8) Ambulatory dysfunction: Status: Acute Assessment and plan: WC bound at baseline, requiring assistance w/transfer (9) DVT prophylaxis: Status: Acute Assessment and plan: Enoxaparin 40 mg sq daily (10) Discharge planning issues: Status: Acute Assessment and plan: Return to [facility] on oral abx when stable and electrolytes normalize, recommend [facility] do BID glucose levels - plan for discharge Discussed with Dr Walters Subjective Subjective Patient reports: no new complaints, feels better, tolerating liquids well and afebrile; denies shortness of breath Exam Const General: cooperative, no acute distress, frail appearing and ill appearing chronically Nutritional Appearance: thin Orientation: alert and awake HENMT Head: atraumatic General nose exam: external nose normal Mouth: oral mucosa abnormal (dry) Eyes General: appearance normal, both eyes and all related structures Resp Effort & Inspection: normal respiratory effort and no respiratory distress Cardio Rate: regular rate Rhythm: regular rhythm Pulses: normal peripheral pulses GI Palpation: soft and nontender Skin General skin exam: no rashes or lesions noted Neuro General: patient alert, patient awake and moves all extremities Objective Last Vital Signs Temp 36.1 C L 08/16/22 15:17 Pulse 64 08/16/22 15:17 Resp 18 08/16/22 15:17 BP 99/61 L 08/16/22 15:17 Pulse Ox 97 08/16/22 15:17 Laboratory Results - last 24 hr 08/16/22 08/16/22 11:30 12:35 Sodium 141 D Potassium 3.3 L Chloride 111 H Carbon Dioxide 24.1 Anion Gap 5.9 BUN 10 Creatinine 0.4 L Est GFR (CKD-EPI 2020) 103.79 Glucose 240 H Calcium 6.3 L* Albumin 1.6 L Time Spent with Patient Time Spent with Patient: 35-49 minutes Time was spent: preparing to see the patient(eg.review tests), obtaining and/or reviewing separately otained hiistory, ordering medications,tests, procedures and indepentently interpreting results
[2022-08-16 19:18] VITALS: BP 100/60; PULSE 64; RESP 18; TEMP 36.8; O2SAT 96
[2022-08-16] MEDS: clonazePAM 1 MG TAB PO (20:32)
[2022-08-16] MEDS: traZODone 50 MG TAB PO (20:32)
[2022-08-16 23:55] VITALS: BP 100/60; PULSE 64; RESP 18; TEMP 36.6; O2SAT 96
[2022-08-17] MEDS: DEXTROSE 5%-WATER 1,000 ML 125 ML IV ×2 (00:36→08:05)
[2022-08-17 03:45] VITALS: BP 100/65; PULSE 66; RESP 18; TEMP 36.9; O2SAT 96
[2022-08-17 07:16] VITALS: BP 98/56; PULSE 63; RESP 16; TEMP 36; O2SAT 93
--- NOTE | 2022-08-17 07:21 | CHAPLAIN ---
I visited with Aleida when shew as in room 228 yesterday. She was tucked in with several pillows and looked comfortable. She responded to a few questions pleasantly. I wasn't able to understand everything she said but she clearly was engaged in the conversation. I explained by role and offered support.
[2022-08-17] MEDS: Pantoprazole 40 MG TABCR PO (08:04)
[2022-08-17] MEDS: Senna TAB 2 TAB PO (08:16)
[2022-08-17] MEDS: Potassium Chloride 20 MEQ TABCR 40 MEQ PO (08:16)
[2022-08-17] MEDS: Divalproex 125 MG SPRINKLE PO (08:16)
[2022-08-17] MEDS: Cholecalciferol (Vitamin D3) 1,000 UNIT TAB 1000 UNITS PO (08:16)
[2022-08-17] MEDS: predniSONE 20 MG TAB PO (08:17)
[2022-08-17] MEDS: buPROPion-CR 150 MG TABCR PO (08:17)
[2022-08-17] MEDS: Ferrous Sulfate 325 MG TAB PO (08:17)
[2022-08-17] MEDS: Citalopram 20 MG TAB PO (08:17)
[2022-08-17] MEDS: Magnesium Chloride 64 MG TABCR PO (08:17)
--- NOTE | 2022-08-17 10:36 | W.NUTRFU ---
Date of service: 08/17/22 Time of Service: 10:36 Nutrition Note NOTE: PO intake has declined in last couple of days. Currently not meeting nutrient needs. Nutrition support not desired if need presents. Will continue to supplement intake and encourage meals completion. Time Spent in Nutritional Counseling and Treatment: 0
--- NOTE | 2022-08-17 10:50 | PDOC.CMPRO ---
- If Service Date Differs Date of service: 08/17/22 Time of Service: 10:50 Care Management Progress Note S/O: A: 76 year old female admitted to [facility] 08/12/22 for Pneumonia P: Aleida will return home to [facility] once medically cleared. She will transport via facility w/c van. She will follow up with facility providers and her discharge plan of care. CM will continue to follow.
[2022-08-17 10:58] VITALS: BP 124/53; PULSE 97; RESP 18; TEMP 36.5; O2SAT 95
[2022-08-17 12:14] LABS: ALT 29 U/L (14-59); AST 23 U/L (15-37); Albumin 1.5 g/dL (3.4-5.0); Alkaline Phosphatase 100 U/L (46-116); Anion Gap 2.5 mmol/L (3-11); BUN 10 mg/dL (7-18); Bilirubin, Total 0.2 mg/dL (0.2-1.0); CO2 29.5 mmol/L (21.0-32.0); CREATININE 0.6 mg/dL (0.55-1.02); Calcium 8.4 mg/dL (8.5-10.1); Chloride 109 mmol/L (98-107); Estimated GFR 94.13 (mL/min/1.73m2); Glucose 101 mg/dL (74-106); Potassium 4.2 mmol/L (3.5-5.1); Sodium 141 mmol/L (136-145); Total Protein 4.6 g/dL (6.4-8.2)
--- NOTE | 2022-08-17 12:58 | W.PM.DS.N ---
Date of service: 08/17/22 Time of Service: 12:58 DS: Diagnosis Discharge Diagnosis (1) Pneumonia: Status: Acute (2) Hypoglycemia: Status: Acute (3) Extrapyramidal and movement disorder: Status: Chronic (4) Moderate bipolar disorder: Status: Acute (5) Severe dementia: Status: Acute (6) Hypernatremia: Status: Acute (7) Muscle weakness: (8) Ambulatory dysfunction: Status: Acute Discharge Plan Disposition Patient Disposition: Snf Facility(SNF) Condition: Improving Discharge Details Reason For Visit: Pneumonia Admit Date/Time: 08/12/22 16:27 Admit Provider: Richardson Walters Attending Provider: Richardson Walters Primary Care Provider: Vaughn Navarro Hospital Course Hospital Course: This is a 76-year-old female patient with a past medical history significant for extrapyramdial and movement disorder, severe dementia hypoglycemic in the nondiabetic who presented to the emergency department for altered mental status and hypoxia. Her work-up in the emergency department showed hyperkalemia hypoglycemia with a blood blood sugar of 40, and suspicion of pneumonia. She was admitted to the hospitalist services and treated with D5W IV ceftriaxone and doxycycline and glucose replacement. While hospitalized course was complicated with ongoing hypoglycemia. She otherwise slowly improved her mentation returned to baseline. Her respiratory status stabilized she will be down stepped to Augmentin at discharge to complete 5 more days. She had some electrolyte abnormalities i.e. hypocalcemia yesterday which with calcium and corrected for albumin but when rechecked today within normal limits. She is been seen by palliative care and by all documentation would not be interested in a feeding tube. Speech therapy did see her and recommends for small frequent meals and oral hygiene prior and after feedings. Plan is to discharge back to [facility] and rehab. Discharge discussed with Dr. Cottrell. Recommend continue ongoing discussions about goals of care with outpatient team Home Meds and New Rx's Prescriptions: New amoxicillin-pot clavulanate [Augmentin] 250-62.5 mg/5 mL suspension for reconstitution 10 ml PO TID Qty: 150 0RF Continued potassium chloride 20 mEq Tablet Extended Release 20 meq PO DAILY bupropion HCl 150 mg Tablet Sustained-Release 12 Hr 150 mg PO DAILY sennosides [Senokot] 8.6 mg Tablet 17.2 mg PO BID Rx Instructions: Take 2 tabs PO BID acetaminophen 325 mg Tablet 650 mg PO Q4H PRN Rx Instructions: for temp 100F or above trazodone 50 mg Tablet 50 mg PO QHS atorvastatin 10 mg Tablet 10 mg PO QHS clonazepam 0.5 mg Tablet 1 mg PO Q12H PRN PRN clonazepam 1 mg Tablet 1 mg PO QHS Rx Instructions: administer 30 minutes before bedtime citalopram 20 mg Tablet 20 mg PO DAILY magnesium hydroxide [Milk of Magnesia] 400 mg/5 mL Suspension 30 ml PO DAILY PRN bisacodyl [Dulcolax (bisacodyl)] 10 mg Suppository 10 mg MI DAILY PRN ferrous sulfate 325 mg (65 mg iron) Tablet 325 mg PO DAILY benztropine 1 mg Tablet 1 mg PO BID aspirin 81 mg Tablet,Chewable 81 mg PO DAILY polyethylene glycol 3350 [Miralax] 17 gram/dose Powder 17 g PO DAILY PRN divalproex [Depakote Sprinkles] 125 mg Capsule, Delayed Rel Sprinkle 125 mg PO BID cholecalciferol (vitamin D3) [Vitamin D3] 25 mcg (1,000 unit) Capsule 25 mcg PO DAILY omeprazole 20 mg Tablet,Delayed Release (Dr/Ec) 20 mg PO DAILY Mag 64 64 mg Tablet,Delayed Release (Dr/Ec) 64 mg PO BID Qty: 30 0RF Discharge Instructions Instructions: Dehydration (DC), Non-diabetic Hypoglycemia (DC), Pneumonia (DC), Aspiration Precautions (DC) Referrals: Vaughn Navarro [Primary Care Provider] - Activity:: Activity as Tolerated Equipment/Supplies:: No Equipment Needed Diet:: Pur?ed thickened Discharge Orders Discharge Orders: Discharge Order (Routine); Ordered 08/17/22 Ordered By: Sofia Lopez DS: Summary Time Spent with Patient providing and/or coordinating discharge services: Greater than 30 minutes Status at Discharge Functional status at discharge: wheelchair bound Overall status at discharge: patient is progressing back to baseline Mental Status: other (demented) Speech and Movement: delayed speech Mood: other (demented) Affect: blunted Exam Const General: cooperative, no acute distress, frail appearing and ill appearing chronically Nutritional Appearance: thin Orientation: alert and awake HENMT Head: atraumatic General nose exam: external nose normal Mouth: oral mucosa abnormal (dry) Eyes General: appearance normal, both eyes and all related structures Resp Effort & Inspection: normal respiratory effort and no respiratory distress Cardio Rate: regular rate Rhythm: regular rhythm Pulses: normal peripheral pulses GI Palpation: soft and nontender Skin General skin exam: no rashes or lesions noted Neuro General: patient alert, patient awake and moves all extremities Psych Mental Status: other (demented) Speech and Movement: delayed speech Mood: other (demented) Affect: blunted DS: Data Vitals/I&O Vitals and I&O: Vital Signs Temperature 36.5 C 08/17/22 10:58 Temperature Source Tympanic 08/17/22 10:58 Pulse 97 H 08/17/22 10:58 Pulse Rhythm Regular 08/17/22 09:01 Pulse 57 L 08/12/22 17:15 Respiratory Rate 18 08/17/22 10:58 Respiratory Effort Short of Breath 08/17/22 09:01 Respiratory Depth Shallow 08/17/22 09:01 Respiratory Pattern Irregular 08/17/22 09:01 Blood Pressure 124/53 L 08/17/22 10:58 Blood Pressure Mean 80 08/12/22 17:01 Blood Pressure Position Supine 08/12/22 11:48 Pulse Oximetry 95 08/17/22 10:58 Oxygen Delivery Method Nasal Cannula 08/17/22 10:58 Oxygen Flow Rate 1 08/17/22 10:58 Pain Level 0 08/17/22 03:45 Comment RN notified 08/15/22 22:55 Intake & Output 08/16/22 08/17/22 08/17/22 23:59 11:59 23:59 Intake Total 1100 / 2215 1984.417 / 1984.417 Output Total 800 / 2150 400 / 400 Balance 300 / 65 1585.417 / 1585.417 Weight 46.6 kg Intake: IV 999 / 2049 1984.417 / 1984.417 Oral 100 / 165 Output: Urine 800 / 2150 400 / 400 Other: Urine Color Light Ashanti Yellow Urine Appearance Clear Clear Urine Odor None Voiding Methods Diaper Data Completed and Pending Labs on day of discharge: Labs from last 24 hours 08/17/22 11:40 Sodium 141 Potassium 4.2 Chloride 109 H Carbon Dioxide 29.5 Anion Gap 2.5 L BUN 10 Creatinine 0.6 Est GFR (CKD-EPI 2020) 94.13 Glucose 101 Calcium 8.4 L Total Bilirubin 0.2 AST 23 ALT 29 Alkaline Phosphatase 100 Total Protein 4.6 L Albumin 1.5 L PFSH All Active Problems (Updated 08/17/22 @ 09:51 by Sofia Lopez NP) DVT prophylaxis (Acute) Discharge planning issues (Acute) Ambulatory dysfunction (Acute) Advance care planning (Acute) Pneumonia (Acute) Hypomagnesemia (Acute) Hypokalemia (Acute) Hypoglycemia (Acute) Extrapyramidal and movement disorder (Chronic) Impulsiveness (Acute) Moderate bipolar disorder (Acute) Severe dementia (Acute) Cellulitis of submandibular region (Acute) Hypernatremia (Acute) Medical History Allergic rhinitis Anemia COPD (chronic obstructive pulmonary disease) Dementia Dental caries GERD (gastroesophageal reflux disease) Hyperlipidemia Insomnia Major depressive disorder Muscle weakness Perioral dermatitis Primary hypertension Repeated falls Social History Smoking/Tobacco Use Status: Former Tobacco Use Smoking risk assessment performed?: Yes Alcohol Intake: never Drug use: Never Substance use type: does not use Do you feel safe at home: Yes Do you feel safe in your relationship?: Yes Time Spent with Patient Time Spent with Patient: 45-69 minutes Time was spent: preparing to see the patient(eg.review tests), obtaining and/or reviewing separately otained hiistory, ordering medications,tests, procedures and counseling the patient
--- NOTE | 2022-08-17 13:51 | PDOC.CMDIS ---
- If Service Date Differs Date of service: 08/17/22 Time of Service: 13:51 LACE Index Scoring Tool - Questions: Length of Stay (in days): 4 - 6 Acuity (Admit via E.D.?): Yes Comorbidities: Chronic Pulmonary Disease, Dementia E.D. Visits: 2 - Answers: Total Score: 14 Risk of Readmission: High Risk Care Management Discharge Reason for Hospitalization: Pneumonia Discharge Plan: Aleida returned to [facility] today after becoming medically cleared. She transported via [facility], coordinated by CM, as she is not able to safely sit up in a chair. She will follow up with facility providers and her discharge plan of care. CM called her daughter, Isa, to inform her of Aleida's discharge. Aleida was happy to return to [facility]. Patient/Family Education Needs: Review discharge instructions and limitations, discussion of self care needs including ask me three and goals of care. Services Needed at Discharge: Long-Term Facility ([facility]), Transportation ([facility])
--- NOTE | 2022-08-17 17:04 | PT.INDS ---
Date of service: 08/17/22 Time of Service: 17:04 PT Notes Visit Reasons: Pneumonia Physical Therapy Inpatient Initial Evaluation Date: 08/17/2022 Dates of Service: 08/16/2022 only This is a clinical summary of care provided for the duration of dates listed above. No charge was made in the completion of this documentation. Referring Doctor: Sofia Yang NP PT Orders: PT CONSULT: Eval/treat Precautions: Fall. Standard. Activity as tolerated. ? Impaired safety awareness. Patient Profile/Admitting Diagnosis:Graciela Shin is a 76-year-old female resident of the [facility] who presented to the ED on 08/12/2022 due to generalized body malaise, shortness of breath, and behavioral change.? Patient is admitted to [facility] for close monitoring of hypoglycemia, hyponatremia, pneumonia, and chronic extraparametal movement disorder. PMHX: All Active Problems?(Updated 08/12/22 @ 15:43 by Alberto Russell NP) Pneumonia (Acute) Hypomagnesemia (Acute) Hypokalemia (Acute) Hypoglycemia (Acute) Extrapyramidal and movement disorder (Chronic) Impulsiveness (Acute) Moderate bipolar disorder (Acute) Severe dementia (Acute) Cellulitis of submandibular region (Acute) Hypernatremia (Acute) Medical History? Allergic rhinitis Anemia COPD (chronic obstructive pulmonary disease) Dementia Dental caries GERD (gastroesophageal reflux disease) Hyperlipidemia Insomnia Major depressive disorder Muscle weakness Perioral dermatitis Primary hypertension Repeated falls Social History/Home Situation: Per review of records, patient's main form of mobility is with the use of a wheelchair.? Required assistance with transfers at the SNF. Equipment Owned/DME: SNF resident.? Wheelchair. Subjective: NT. See most recent CERTIFIED HEALTH EDUCATION SPECIALIST notes. Objective: General Observation: SNT. See most recent CERTIFIED HEALTH EDUCATION SPECIALIST notes. Mental Status: NT. See most recent CERTIFIED HEALTH EDUCATION SPECIALIST notes. Pain: NT. See most recent CERTIFIED HEALTH EDUCATION SPECIALIST notes. ROM: Right Upper Extremity: ? Grossly WFL Left Upper Extremity:? Grossly WFL Right Lower Extremity: Grossly WFL Left Lower Extremity: Grossly WFL Strength: Right Upper Extremity: Grossly 3-/5 in the shoulder,? 4-/5 in the elbow and wrist/hand Left Upper Extremity: Grossly 3-/5 in the shoulder,? 4-/5 in the elbow and wrist/hand Right Lower Extremity: Grossly 3-/5 Left Lower Extremity: Grossly 3-/5 Bed Mobility/Transfers: Supine to sit?moderate assist Sit to stand?moderate assist of 2.? Nurse Mela assisting for bed to wheelchair transfer.? CERTIFIED HEALTH EDUCATION SPECIALIST Anita assisting standing up from chair to ensure that alarm system is placed on patient's chair. Stand to sit?moderate assist of 2 Bed to reclining chair?moderate assist of 2 Gait: 5-6 steps from edge of bed to bedside chair.? Steps asymmetric.? Needed maximal cueing for walker management and safe gait pattern.? Moderately ataxic. Balance: Static Sitting: Fair Dynamic Sitting: Fair Static Standing: Poor Dynamic Standing: Unable Assessment: Patient presents with clinical signs and symptoms consistent with current/admitting diagnoses that have resulted to mobility limitations, gait instability, generalized weakness, and overall ADL decline as demonstrated by the following impairment level findings: 1.? Decreased strength to B UE/LE major muscle groups 2.? Impaired sitting? balance 3.? Impaired activity tolerance 4.? Involuntary facial and B UE/LE movements worse with movement 5.? Shortness of breath 6.? Impaired safety awareness 7.? Wheelchair-bound Impairments are contributing to the following functional limitations: 1.? Decline in bed mobility skills 2.? Decline in transfer skills 3.? Increased completion time for mobility ADL performance 4.? Increased risk for falls Goals: Goals X1 week 1. Supine-Sit supervision NOT MET 2. Sit-Supine supervision NOT MET 3. Sit-Stand minimal assist NOT MET 4. Stand-Sit minimal assist NOT MET 5. Bed-Chair minimal assist NOT MET 6. Chair-Bed minimal assist NOT MET 7. Fair static and dynamic standing balance/tolerance NOT MET DISCHARGE RECOMMENDATIONS: [] ? Home with no services [] [] ? Home with services [specify] [] ? Home with outpatient PT [] [] ? SNF for continued rehabilitation [] [] ? [facility] Worker Care [] [] ? SNF versus LTC based on ability to participate and progress [] [X]? return to SNF when medically cleared TREATMENT CODE/TIME: AK Thank you for the opportunity to participate in the care of this patient. Andreia Pace PT, DPT, CLT [facility] [place], [place]
== END 2022-08-17 14:25 | disposition skilled nursing facility (03) | DRG 640 ==
LOC: ER 15:43 → MS 19:27
PROVIDERS: Nurse Practitioner Acute Care; Nurse Practitioner Family; Admitting Provider Family Medicine; Emergency Provider Nurse Practitioner Family; PCP Family Medicine; Visit Provider Family Medicine
DX: E87.0 Hyperosmolality and hypernatremia (principal); J18.9 Pneumonia, unspecified organism; J44.0 Chronic obstructive pulmonary disease with (acute) lower respiratory infection; G25.9 Extrapyramidal and movement disorder, unspecified; E16.2 Hypoglycemia, unspecified; F03.C0 Unspecified dementia, severe, without behavioral disturbance, psychotic disturbance, mood disturbance, and anxiety; R09.02 Hypoxemia; F31.9 Bipolar disorder, unspecified; E83.41 Hypermagnesemia; E83.51 Hypocalcemia; D64.9 Anemia, unspecified; K21.9 Gastro-esophageal reflux disease without esophagitis; R29.6 Repeated falls; I10 Essential (primary) hypertension; R53.1 Weakness; E78.5 Hyperlipidemia, unspecified; G47.33 Obstructive sleep apnea (adult) (pediatric)
CPT/HCPCS: 36415; 36416; 80048; 80053; 82805; 82947; 82962; 87081; 87637; 92610; 96361; 96365; 96375; 97162; 97530; 99285; J1650; 70450; 71045; 71046; 81003; 81015; 82040; 83735; 85025; 87086; 99222; 99232; 99233; 99239; J0456; J0696; J2060; J3490; J7042; J7060; J7512